=== PATIENT | female | born 1955 | race Caucasian/White ===

== ENCOUNTER 2018-03-09 14:59 | Outpatient (CLI) | payer BC ==
--- NOTE | 2018-03-09 15:56 | BD ---
BONE DENSITOMETRY USING DEXA: Date: 03/09/18 HISTORY: Postmenopausal screening for osteoporosis. FINDINGS: Lumbar Spine: BMD (g/cm2) L1 1.073 T-Score: 0.8 Z-Score: 2.2 L2 1.153 T-Score: 1.1 Z-Score: 2.7 L3 1.118 T-Score: 0.3 Z-Score: 2.0 L4 1.065 T-Score: 0.0 Z-Score: 1.8 L1-L4 1.102 T-Score: 0.5 Z-Score: 2.1 Femoral Neck: 0.533 T-Score: -2.8 Z-Score: -1.4 Total Femur: 0.718 T-Score: -1.8 Z-Score: -0.7 IMPRESSION: Osteoporosis. POS: JAYLAN
== END 2018-03-09 15:00 | disposition home or self-care (01) ==
LOC: BICMAMMO 14:59
PROVIDERS: ATTEND Internal Medicine Rheumatology
DX: M81.0 Age-related osteoporosis without current pathological fracture (principal)
CPT/HCPCS: 77080

== ENCOUNTER 2018-03-21 13:52 | Outpatient (CLI) | payer BC ==
--- NOTE | 2018-03-21 14:16 | RAD ---
TWO VIEWS LEFT KNEE: Comparison: None. History: Osteoarthritis of the knee. FINDINGS: Two views of the left knee shows no evidence of acute fracture or dislocation. No degenerative change s are seen. No knee effusion is seen. IMPRESSION: Unremarkable exam. POS: SHE
--- NOTE | 2018-03-21 14:20 | RAD ---
TWO VIEWS RIGHT KNEE: Comparison: None. History: Osteoarthritis of the knee. FINDINGS: Two views of the right knee shows no evidence of acute fracture or dislocation. No degenerative peralta es are seen. No knee effusion is present. IMPRESSION: No evidence of acute osseous abnormality. POS: JAYLAN
== END 2018-03-21 13:53 | disposition home or self-care (01) ==
LOC: BICRAD 13:52
PROVIDERS: ATTEND Internal Medicine Rheumatology
DX: M17.0 Bilateral primary osteoarthritis of knee (principal)

== ENCOUNTER 2018-08-03 10:14 | Inpatient (IN) | payer BC ==
[2018-08-03 11:07] LABS: #Basophils 0.1 thou/uL (0.0-0.2); #Lymphocytes 1.1 thou/uL (1.20-3.40); #Monocytes 0.7 thou/uL (0.11-0.59); #Neutrophils 2.9 thou/uL (1.40-6.50); %Basophils 1.5 % (0.0-1.0); %Eosinophils 0.4 % (0.0-10.0); %Lymphocytes 22.6 % (21.0-51.0); %Monocytes 14.9 % (0.0-10.0); %Neutrophils 60.6 % (42.0-75.0); Hemoglobin 11.2 g/dL (12.0-16.0); Mean Corpuscular HGB CONC 31.9 g/dL (32.0-36.0); Mean Corpuscular Hemoglobin 24.4 pg (27.0-31.0); Mean Corpuscular Volume 76.4 fL (78.0-98.0); Mean Platelet Volume 10.8 fL (7.4-10.4); Platelet Count 237 thou/uL (130-400); RBC Distribution Width 18.5 % (11.5-14.5); Red Blood Cell (RBC) Count 4.61 mill/uL (4.20-5.40); White Blood Cell (WBC) Count 4.7 thou/uL (4.8-10.8)
[2018-08-03] MEDS ORDERED: ISOVUE-370 76%-LOCM 1 ML ONE (11:17)
[2018-08-03 11:28] LABS: ALT (SGPT) 298 U/L (8-55); AST (SGOT) 244 U/L (5-34); Albumin 4.4 g/dL (3.4-4.8); Alkaline Phosphatase 670 U/L (40-150); Anion Gap 15 mmol/L (10-20); BUN (Urea Nitrogen) 9 mg/dL (9.8-20.1); Bilirubin, Total 5.4 mg/dL (0.2-1.2); Calc. Creatinine Clearance 0 mL/min (70-130); Calcium 10.1 mg/dL (7.8-10.44); Carbon Dioxide 25 mmol/L (23-31); Chloride 96 mmol/L (98-107); Estimated GFR-MDRD 70; Globulin 3.3 g/dL (2.4-3.5); Glucose 122 mg/dL (80-115); Lipase 82 U/L (8-78); Potassium 3.8 mmol/L (3.5-5.1); Protein, Total 7.7 g/dL (6.0-8.3); Sodium 132 mmol/L (136-145)
[2018-08-03 13:27] LABS: Bilirubin Moderate (Negative); Blood, Urine Small (Negative); Clarity CLEAR (Clear); Glucose, Urine (Dipstick) Negative (Negative); Leukocyte Negative (Negative); Nitrite Negative (Negative); Protein, Urine (Dipstick) Negative (Neg-Trace); Specific Gravity, Urine 1.008 (1.002-1.036); pH, Urine 5.5 (5.0-9.0)
[2018-08-03 13:31] LABS: Bacteria/HPF None Seen HPF (None Seen); Hyaline Casts/LPF 0-3 HYALINE CAST LPF (0-3 Hyaline); RBC/HPF 0-3 HPF (0-3); Squamous Epithelial None Seen HPF (0-3); WBC/HPF None Seen HPF (0-3)
[2018-08-03] MEDS ORDERED: Morphine 4 MG/ML VIAL ONE ×2 (14:48→16:56)
[2018-08-03] MEDS ORDERED: Ondansetron PF 4 MG/2 ML Vial ONE ×2 (14:48→16:56)
--- NOTE | 2018-08-03 14:52 | CT ---
CT Abdomen Pelvis W Con: 08/03/2018 1:56 PM CLINICAL INFORMATION: Abdominal pain. Recently diagnosed with a possible mass in the pancreas, the ul trasound. COMPARISON: 05/07/2011 Procedure: Multiple contiguous axial images were obtained and a CT of the abdomen and pelvis with IV contrast. C oronal reformats were performed. FINDINGS: Lower Chest: within normal limits. Vessels: Visualized aorta has a normal caliber. No periaortic fat stranding. Abdomen: Portal vein:Patent Gallbladder: Surgically absent. Markedly dilated intra and extra hepatic biliary system which main part be due to reservoir effect an d in part due to a mass noted in the head of the pancreas. Liver: No evidence of hepatic masses. Pancreas: There is dilatation of the main pancreatic duct with focal outpouching of the duct. The bod y and tail of the pancreas have appropriate enhancement. There is abnormal enhancement with an irregular-appearing head and uncinate process of the pancreas. There is a presumed neoplastic process measuring 4.2 x 3.1 cm. Spleen: within normal limits. Adrenals: within normal limits. Kidneys: within normal limits. Peritoneum: No ascites or free air, no fluid collection. Bowel: Normal caliber. Mesentery and Retroperitoneum: There are a few scattered nonspecific lymph nodes in the left abdomina l mesentery. Abdominal Wall: within normal limits. Pelvis: Reproductive Organs: Surgically absent uterus. Pelvis within normal limits. Bladder: within normal limits. Bones: within normal limits. IMPRESSION: 1. 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 2. Dilatation of the intra and extra hepatically system in part due to previous post cholecystectomy and in part due to pancreatic mass. 3. Dilatation of the main pancreatic duct is a forementioned pancreatic mass.
[2018-08-03] MEDS ORDERED: Morphine 2 MG/ML SYRINGE SLOW IVP PRN (16:24)
[2018-08-03] MEDS ORDERED: Morphine 4 MG/ML VIAL SLOW IVP PRN (16:24)
[2018-08-03] MEDS ORDERED: Ondansetron PF 4 MG/2 ML Vial IVP PRN (16:26)
[2018-08-03] MEDS ORDERED: Senokot S 8.6-50 MG TAB PO PRN (16:47)
[2018-08-03] MEDS: Famotidine/PF 20 mg/2ml Vial SLOW IVP SCH (20:06)
[2018-08-03] MEDS: diphenhydrAMINE 50 MG/ML VIAL IVP PRN ×2 (20:06→23:13)
[2018-08-03] MEDS: Sodium Chloride 0.9% 1,000 ML IV SCH (20:08)
[2018-08-03] MEDS: Fentanyl 100 MCG/2 ML VIAL SLOW IVP PRN (23:12)
--- NOTE | 2018-08-04 00:42 | HP ---
PRIMARY CARE PHYSICIAN: Rebekah Connelly MD CHIEF COMPLAINT: Abdominal pain. HISTORY OF PRESENT ILLNESS: Ms. Nunes is a 63-year-old female who was sent to the emergency room by Dr. Hoover at [facility] with complaints of abdominal pain x2 weeks which has worsened this week. Also reports vomiting for the last 4 or 5 days and then a few days of diarrhea which is now also resolved. The patient now reports some hard stool and the feeling of buildup of gas. Ultrasound yesterday at Dr. Hoover's office showed pancreatic mass. Family reports that the patient appears jaundiced for the last 3 to 4 days. Approximately 10 pounds of weight loss over the last month. Denies chest pain or shortness of breath. The patient does report a colonoscopy in 2011 which was normal. The patient reports pain at the time when she got to the ER was an 8 out of 10. On exam, reports the pain is much improved. Does report that she does have some constipation and does have some current nausea. Abdomen and pelvis CT was performed while the patient was in the emergency room and shows, 1. A neoplastic process involving the head and uncinate process of the pancreas. 2. Dilatation of the intra and extra hepatic system and part due to previous post cholecystectomy and part due to pancreatic mass. 3. Dilatation of the main pancreatic duct, aforementioned pancreatic mass. Lipase is 82, amylase is 18, alkaline phosphatase is 670, ALT is 298, AST is 244, total bilirubin is 5.4. The patient is admitted to medical for further evaluation. PAST MEDICAL HISTORY: Cardiac arrhythmia, hypertension, recent mass on pancreas which was found this week on ultrasound. PAST SURGICAL HISTORY: Cholecystectomy, hysterectomy, appendectomy, and cervical spine surgery. PSYCH HISTORY: Anxiety and depression. SOCIAL HISTORY: Denies any alcohol or drug use. Has no smoking history. Lives in the home with her family. ALLERGIES: 1. CIPRO. 2. DULOXETINE. 3. TERIPARATIDE. 4. REPORTS THAT SHE ALSO GETS ITCHY AFTER DOSE OF MORPHINE. CURRENT MEDICATIONS: 1. Carvedilol 40 mg once a day. 2. BuSpar 5 mg b.i.d. 3. Lunesta 1.5 to 3 mg p.m. as needed. REVIEW OF SYSTEMS: The patient reports recent weight loss. Reports abdominal pain. Reports nausea, vomiting, and diarrhea which have resolved and then constipation. Denies fever or chills. All other systems reviewed and are negative unless mentioned in the HPI. PHYSICAL EXAMINATION: VITAL SIGNS: Blood pressure is 150/80, pulse is 96, respirations 18, temperature is 98.3, pO2 sats are 95% on room air. CONSTITUTIONAL: The patient is alert and oriented to person, place, and time. The patient is in no distress, appears nontoxic. HEENT: Head is atraumatic and normocephalic. Eyes; eyelids are normal to inspection. Pupils are equal, round, and reactive to light. ENT; mouth exam is normal. Mucous membranes are moist. NECK: Normal range of motion. Trachea is midline. RESPIRATORY/CHEST: Breath sounds are clear. Chest movement is symmetrical. CARDIOVASCULAR: Heart rate, regular rate and rhythm. Heart sounds are normal. ABDOMEN: Tender epigastric right upper quadrant. Bowel sounds are heard. BACK: Normal range of motion. Normal inspection. No CVA tenderness. EXTREMITIES: Upper extremities; normal inspection, normal range of motion. Radial pulses are equal bilaterally. Lower extremities; normal inspection, normal range of motion. Pedal pulses are equal bilaterally. NEUROLOGIC: The patient is oriented to person, place, and time. Speech is normal. No focal motor or sensory deficits. SKIN: Warm, dry, jaundiced in appearance. PSYCH: The patient has normal affect. PERTINENT LABORATORY DATA: Sodium is 132, potassium 3.8, chloride is 96, carbon dioxide 25, gap is 15, BUN is 9, creatinine is 0.82, estimated GFR 70, glucose 122, calcium 10.1, total bilirubin is 5.4, AST 244, ALT is 298, alkaline phosphatase is 670, total protein 7.7, albumin 4.4, globulin 3.3, amylase 18, lipase 82. Urine with small amount of ketones, small amount of blood, moderate amount of bilirubin. White blood cell count is 4.7, hemoglobin is 11.2, hematocrit is 35.2, and platelet count is 237. ASSESSMENT AND PLAN: 1. Abdominal pain. Pancreatic mass seen on ultrasound which is confirmed on CT scan. We will admit to the hospital. Fluids normal saline at 75 mL per hour. Pain medication. Zofran is needed for nausea. We will consult GI. The patient was told that she may undergo an ERCP tomorrow. 2. Hypertension. We will restart home medications. 3. Gastrointestinal and deep venous thrombosis prophylaxis will be started. 4. Hospital course will depend on clinical findings. Job ID: [id number]
--- NOTE | 2018-08-04 02:00 | CON ---
DATE OF CONSULTATION: 08/03/2018 CHIEF COMPLAINT: Abdominal pain. HISTORY OF PRESENT ILLNESS: Ms. Nunes is a 63-year-old woman who has had burning to aching epigastric abdominal pain for the last 3 weeks that radiates around to her back. She did have nausea and vomiting few days ago, but none in the last couple of days. She has had no diarrhea, but has had some chronic constipation with a bowel movement every 3 or 4 days. She has been taking MiraLAX and Colace for that. She has lost 10 pounds over the last couple months. No chest pain or shortness of breath. No blood in the stool. She presented to the GI clinic yesterday with these symptoms and an ultrasound was ordered and blood work. She was found to have a mass of the pancreas with bile duct dilation by ultrasound. She had worsening pain this morning and came into the emergency room. She was found to have obstructive jaundice with a bilirubin of 5.4 and alkaline phosphatase of 670. PAST MEDICAL HISTORY: Hepatitis C treated previously, hemorrhoids, depression, arthritis, hypertension, irritable bowel syndrome. She has had itching and pruritus over the last couple of weeks, which is gradually worsening. She has had fatigue and loss of appetite as well. PAST SURGICAL HISTORY: 1. Hysterectomy. 2. She has had prior colonoscopy. 3. Cholecystectomy. ALLERGIES: CIPROFLOXACIN, LEVOFLOXACIN. MEDICATIONS: As an outpatient prior to admission: 1. Bupropion. 2. Carvedilol. 3. Esomeprazole. 4. Lunesta. 5. Timolol. 6. Zolpidem. 7. Tums. FAMILY HISTORY: Her mother had ovarian cancer. Sister had lung cancer. Father had lung cancer. SOCIAL HISTORY: She is a former smoker. No drugs. No alcohol. She works as a nurse at the [employer]. REVIEW OF SYSTEMS: Negative x10 systems reviewed except as stated in history of present illness. PHYSICAL EXAMINATION: VITAL SIGNS: Temperature 98.8, pulse 98, blood pressure 122/60. GENERAL: She is in no acute distress. She is alert and oriented x3. HEENT: Eyes have mild scleral icterus. Oropharynx is clear without lesions. No cervical or supraclavicular lymphadenopathy. LUNGS: Clear to auscultation bilaterally. HEART: Regular rate and rhythm without murmur. ABDOMEN: Soft. She has tenderness in the epigastric region without guarding. Bowel sounds are present. She has no hepatomegaly. EXTREMITIES: No lower extremity edema. NEUROLOGIC: Cranial nerves are grossly intact. LABORATORY DATA: Creatinine 0.82, bilirubin 5.4, AST 244, ALT 298, alkaline phosphatase 670, lipase 82, amylase 18, INR was 1.1 in the clinic yesterday. White blood cell count 4.7, hemoglobin 11.2, MCV 76, platelets 237. IMPRESSION: 1. Obstructive jaundice. 2. Abnormal CT scan showing a pancreatic mass with dilation of the bile duct proximally. She is status post cholecystectomy. 3. Pruritus secondary to cholestasis. RECOMMENDATIONS: ERCP tomorrow. The risks and benefits of this procedure were discussed in detail with the patient and her daughter. This includes pancreatitis, bleeding, perforation and failure to cannulate. Job ID: [id number]
[2018-08-04 02:50] VITALS: BMI 20.3
[2018-08-04] MEDS: Fentanyl 100 MCG/2 ML VIAL SLOW IVP PRN ×4 (07:02→21:33)
[2018-08-04] MEDS: diphenhydrAMINE 50 MG/ML VIAL IVP PRN (07:06)
[2018-08-04] MEDS ORDERED: Enoxaparin Sodium 40 MG/0.4 ML SYRINGE SC SCH (09:00)
[2018-08-04] MEDS: Sodium Chloride 0.9% 1,000 ML IV SCH ×2 (09:03→22:56)
[2018-08-04 09:04] LABS: ALT (SGPT) 250 U/L (8-55); AST (SGOT) 214 U/L (5-34); Albumin 3.8 g/dL (3.4-4.8); Alkaline Phosphatase 586 U/L (40-150); Anion Gap 14 mmol/L (10-20); BUN (Urea Nitrogen) 10 mg/dL (9.8-20.1); Bilirubin, Total 5.4 mg/dL (0.2-1.2); Calc. Creatinine Clearance 70 mL/min (70-130); Carbon Dioxide 23 mmol/L (23-31); Chloride 103 mmol/L (98-107); Estimated GFR-MDRD 77; Globulin 2.9 g/dL (2.4-3.5); Glucose 93 mg/dL (80-115); Potassium 3.6 mmol/L (3.5-5.1); Protein, Total 6.7 g/dL (6.0-8.3); Sodium 136 mmol/L (136-145)
[2018-08-04] MEDS: Famotidine/PF 20 mg/2ml Vial SLOW IVP SCH (09:05)
[2018-08-04 09:07] LABS: Hemoglobin 10.3 g/dL (12.0-16.0); Mean Corpuscular HGB CONC 31.2 g/dL (32.0-36.0); Mean Corpuscular Hemoglobin 24.1 pg (27.0-31.0); Mean Corpuscular Volume 77.2 fL (78.0-98.0); Mean Platelet Volume 11.3 fL (7.4-10.4); Platelet Count 203 thou/uL (130-400); RBC Distribution Width 18.5 % (11.5-14.5); Red Blood Cell (RBC) Count 4.28 mill/uL (4.20-5.40); White Blood Cell (WBC) Count 4.2 thou/uL (4.8-10.8)
[2018-08-04 09:32] LABS: Band 7 % (5-11); Hypochromia SLIGHT = 6-15 cells (100X) (0-5/hpf); Lymphocytes 34 % (21-51); MDiff Complete? YES; Microcytosis SLIGHT = 6-15 cells (100X) (0-5/hpf); Monocytes 8 % (0-10); Neutrophil 49 % (42-75); Platelet Morphology Comment Appears Adequate; Polychromasia SLIGHT = 2-3 cells (100X) (0-2/hpf); Reactive Lymphocytes 2 % (0-10)
[2018-08-04] MEDS ORDERED: cefTRIAXone\\ROCEPHIN 1 GM VIAL ONE (10:48)
[2018-08-04] MEDS ORDERED: Sodium Chloride 0.9% 100 ML ONE (10:48)
[2018-08-04] MEDS ORDERED: Iothalamate Meglumine 60% 50 ML VIAL FS ONE (11:11)
[2018-08-04] MEDS ORDERED: Indomethacin 50 MG SUPP ONE (11:11)
[2018-08-04] MEDS ORDERED: Ondansetron HCl/PF 4 MG/2 ML Vial IVP PRN (14:07)
[2018-08-04] MEDS ORDERED: Fentanyl 100 MCG/2 ML VIAL ONE ×2 (14:15→14:49)
[2018-08-04] MEDS ORDERED: Ondansetron ODT 4 MG TAB PO PRN (15:32)
--- NOTE | 2018-08-04 15:56 | PDOC.PN ---
- Subjective Encounter Start Date: 08/04/18 Encounter Start Time: 15:53 Patient seen for Pancreatic mass. s/p ERCP. No new complaints. No overnight events - Objective Resuscitation Status - Order Detail: 08/03/18 16:47 Resuscitation Status Routine Co-Sign Provider: Resuscitation Status: FULL: Full Resuscitation Discussed with: Patient Additional comments: and daughters are surrogate decision makers MAR Reviewed: Yes Vital Signs & Weight: Vital Signs (12 hours) Temp Pulse Resp BP Pulse Ox 08/04/18 08:15 98.2 F 88 16 141/67 H 93 L 08/04/18 08:00 98 08/04/18 04:00 98.6 F 109 H 18 122/59 L 97 Weight Weight 129 lb 13.636 oz Result Diagrams: 08/04/18 08:18 08/04/18 08:18 Radiology Reviewed by me: Yes (Abd CT - Pancreatic mass) Phys Exam - Physical Examination Constitutional: NAD Neurological: moves all 4 limbs Psychiatric: A&O x 3 Dx/Plan - Plan DVT proph w/SCDs IMPRESSION: Obstructive jaundice Pruritus due to #1 Pancreatic mass Hyponatremia due to N/V Chronic Anemia Depression - mild - stable PLAN: s/p ERCP Await biopsy LFTs and Lipase in AM Resume Wellbutrin Cont Zofran Cont IVF Review of Systems - Review of Systems Respiratory: negative: Cough, Dry, Shortness of Breath, Hemoptysis, SOB with Excertion, Pleuritic Pain, Sputum, Wheezing Cardiovascular: negative: chest pain, palpitations, orthopnea, paroxysmal nocturnal dyspnea, edema, light headedness, other - Medications/Allergies Allergies/Adverse Reactions: Allergies Allergy/AdvReac Type Severity Reaction Status Date / Time ciprofloxacin [From Cipro] Allergy Verified 08/04/18 08:02 duloxetine [From Cymbalta] Allergy Verified 08/04/18 08:02 teriparatide [From Forteo] Allergy Verified 08/04/18 08:02 Medications: Current Medications Bupropion HCl (Wellbutrin) 150 mg PO BID DAVID Fentanyl (Sublimaze) 25 mcg SLOW IVP Q4H PRN PRN Reason: Moderate Pain (4-6) Last Admin: 08/04/18 07:02 Dose: 25 mcg Fentanyl (Sublimaze) 50 mcg SLOW IVP Q4H PRN PRN Reason: Moderate to Severe Pain (6-10) Last Admin: 08/04/18 09:46 Dose: 50 mcg Fentanyl (Pacu-Sublimaze) 50 mcg SLOW IVP Q10MIN PRN PRN Reason: Moderate to Severe Pain (6-10) Stop: 08/04/18 17:07 Hydroxyzine HCl (Atarax) 10 mg PO Q4H PRN PRN Reason: Itching Sodium Chloride (Normal Saline 0.9%) 1,000 mls @ 75 mls/hr IV .[id number] DAVID Last Admin: 08/04/18 09:03 Dose: 1,000 mls Ondansetron HCl (Zofran) 4 mg IVP Q6H PRN PRN Reason: Nausea/Vomiting Last Admin: 08/04/18 15:46 Dose: 4 mg Ondansetron HCl (Pacu-Zofran) 4 mg IVP ONE PRN PRN Reason: Nausea/Vomiting Stop: 08/04/18 17:07 Ondansetron HCl (Zofran Odt) 4 mg PO Q6H PRN PRN Reason: Nausea/Vomiting Senna/Docusate Sodium (Senokot S) 2 tab PO BID PRN PRN Reason: Constipation Sodium Chloride (Flush - Normal Saline) 10 ml IVF Q12HR PRN PRN Reason: Saline Flush
[2018-08-04] MEDS ORDERED: Dexamethasone 20 MG/5 ML VIAL ONE (16:34)
[2018-08-04] MEDS ORDERED: Ondansetron PF 4 MG/2 ML Vial ONE (16:34)
[2018-08-04] MEDS ORDERED: Rocuronium Bromide 10 MG/ML (10ML VIAL) ONE (16:34)
[2018-08-04] MEDS ORDERED: PROPOFOL 200 MG/20 ML VIAL ONE (16:34)
[2018-08-04] MEDS ORDERED: Lidocaine 1% PF 5 ML VIAL ONE (16:34)
[2018-08-04] MEDS: hydrOXYzine 10 MG TAB PO PRN ×2 (18:14→22:18)
--- NOTE | 2018-08-04 20:57 | OP ---
DATE OF PROCEDURE: 08/04/2018 PROCEDURES PERFORMED: Endoscopic retrograde cholangiopancreatography with sphincterotomy and cytology brushings of the bile duct and plastic biliary stent placement and biopsy. PREOPERATIVE DIAGNOSIS: Pancreatic mass and obstructive jaundice and pruritus. DESCRIPTION OF PROCEDURE: Informed consent was obtained from the patient. She was sedated with general anesthesia. She was placed in the prone position and a bite block was placed. The duodenoscope was advanced easily to the second portion of the duodenum. The ampulla was abnormal with periampullary mass. The ampulla opening was somewhat obscured and was very friable. The opening was cannulated with a sphincterotome and guidewire, and the guidewire was initially advanced into the proximal pancreatic duct. The sphincterotome was repositioned, and the wire was advanced selectively into the common bile duct. The sphincterotome was then advanced and cholangiogram was performed, which revealed dilation of the common bile duct to least 1.3 cm. The extrahepatic ducts were markedly dilated as well. The intrahepatic ducts were mildly dilated. A moderately large sphincterotomy was performed. There was a 3-cm stricture in the distal common bile duct. The stricture was brushed with a cytology brush and this was sent to Pathology for review. An 11.5-[place]yr[place] 7-cm stent was then placed through the stricture with rapid drainage of clear bile. A 5-cm stent would also be adequate. Biopsies were obtained from the ampullary mass with the biopsy forceps. The air and fluid were suctioned from the stomach, and the procedure was completed. IMPRESSION: 1. Periampullary mass, which was friable and biopsied. 2. Cholangiogram showing dilation of the common bile duct and intra and extrahepatic ducts. There was a 3-cm stricture in the distal common bile duct. 3. Moderate sphincterotomy. 4. Cytology brushings obtained from the stricture. 5. An 11.5-[place] 7-cm plastic stent was placed with good drainage with clear bile. RECOMMENDATIONS: 1. Await histopathology. 2. Check liver tests in the morning. 3. Advance diet. 4. Anticipate discharge home tomorrow morning with followup in the office next week. Job ID: [id number]
[2018-08-04] MEDS: buPROPion 75 MG TAB PO SCH (21:33)
--- NOTE | 2018-08-04 22:21 | RAD ---
ERCP 08/04/18 HISTORY: Abdominal pain. FINDINGS/IMPRESSION: Five fluoroscopic intraoperative images of the right upper quadrant during ERCP demonstrate opacifica tion of the common bile duct, hepatic ducts and their branches which appear dilated. There is dilatat ion of the intra and extrahepatic ducts. No filling defects are seen. No contrast is noted in the se cond portion of the duodenum. There are postop changes of cholecystectomy. POS: SHE
[2018-08-05 04:42] LABS: ALT (SGPT) 226 U/L (8-55); AST (SGOT) 178 U/L (5-34); Albumin 3.7 g/dL (3.4-4.8); Alkaline Phosphatase 537 U/L (40-150); Bilirubin, Direct 1.4 mg/dL (0.1-0.3); Bilirubin, Total 2.2 mg/dL (0.2-1.2); Lipase 60 U/L (8-78); Protein, Total 6.4 g/dL (6.0-8.3)
[2018-08-05] MEDS: Fentanyl 100 MCG/2 ML VIAL SLOW IVP PRN (07:35)
[2018-08-05] MEDS: buPROPion 75 MG TAB PO SCH (07:36)
[2018-08-05] MEDS: hydrOXYzine 10 MG TAB PO PRN ×2 (07:55→12:31)
[2018-08-05 08:05] VITALS: BP 127/67; TEMP 98.2
[2018-08-05] MEDS ORDERED: traMADol HCl 50 MG TAB PO PRN (10:13)
[2018-08-05] MEDS ORDERED: Acetaminophen/Codeine 30-300mg Tablet PO PRN (10:13)
[2018-08-05] MEDS ORDERED: Calcium Carbonate 500 MG ChewTAB PO PRN (10:13)
--- NOTE | 2018-08-05 11:23 | PRG ---
DATE OF SERVICE: 08/05/2018 SUBJECTIVE: Ms. Nunes still has significant epigastric pain after eating. Also worse when she gets up and moves around. She has been taking fentanyl IV for this to control the pain. OBJECTIVE: VITAL SIGNS: Temperature 98.2, pulse 100, and blood pressure 127/67. GENERAL: She is jaundiced, in no acute distress. Alert and oriented x3. LUNGS: Clear to auscultation bilaterally. HEART: Regular rate and rhythm without murmur. ABDOMEN: Soft and tender in the epigastric region without guarding. Bowel sounds are present. EXTREMITIES: No lower extremity edema. LABORATORY DATA: Her bilirubin is decreased from 5.4 to 2.2 today. AST 178, ALT 226, alkaline phosphatase 537, lipase 60, and albumin 3.7. IMPRESSION: 1. Pancreatic mass with distal common bile duct stricture concerning for pancreatic malignancy. She is status post biliary plastic stent placement yesterday with good drainage of bile. Biopsies and brushings were obtained and are pending. 2. Pruritus, slightly improved today. This should continue to improve with biliary drainage. 3. Epigastric abdominal pain. RECOMMENDATIONS: 1. Await histopathology. 2. We have consulted Oncology, Dr. Fernandez. 3. She should be able to discharge home once her pain is adequately controlled with oral pain medications. Job ID: [id number]
[2018-08-05] MEDS ORDERED: ISOVUE-370 76%-LOCM 1 ML ONE (11:38)
[2018-08-05] MEDS ORDERED: HYDROcodone/Acetaminophen 10/325 mg Tablet PO SCH (14:45)
--- NOTE | 2018-08-05 15:56 | DIS ---
DATE OF ADMISSION: 08/03/2018 DATE OF DISCHARGE: 08/05/2018 DISCHARGE DISPOSITION: Home. FOLLOWUP: Follow up with primary care physician, nurse practitioner in a week. ALLERGIES: THE PATIENT IS ALLERGIC TO: 1. CIPROFLOXACIN. 2. CYMBALTA. 3. TERIPARATIDE. THE PATIENT WILL BE DISCHARGED HOME AFTER A CT SCAN OF THE CHEST PER ONCOLOGY RECOMMENDATION. DISCHARGE MEDICATIONS: 1. Atarax as needed. 2. Protonix 40 mg daily. 3. [place] as needed. 4. Lunesta 3 mg as needed. 5. Bupropion 150 mg b.i.d. INPATIENT CONSULTANTS: 1. Gastroenterology, Dr. George. 2. Oncology, Dr. Fernandez. The patient was seen on the day of discharge. Denies any new complaints. Symptomatically feels better. Pain controlled on current pain medications. BRIEF HOSPITAL COURSE: The patient is a 63-year-old female, who was sent to the emergency room from [facility] due to abdominal discomfort along with nausea and vomiting. She was also found to have abnormal LFTs as well as a recent ultrasound showing pancreatic mass at Dr. Hoover's office. She has lost approximately 10 pounds of weight over the last month. Please refer to the history and physical for further details. The patient was admitted to the hospital with a diagnosis of obstructive jaundice with pancreatic mass. Total bilirubin on admission was 5.4 with AST 244, ALT 298, alkaline phosphatase 670. She was seen by Gastroenterology, Dr. George. She underwent ERCP with sphincterotomy and biliary stent was placed. Cytology studies are pending at this time. The patient was also evaluated by Oncology Service, Dr. Fernandez today. The CT scan of the chest will be obtained prior to discharge. FINAL DIAGNOSES: 1. Obstructive jaundice secondary to pancreatic mass, status post biliary stent placement. 2. Abdominal discomfort with nausea and vomiting secondary to #1. 3. Elevated LFTs secondary to #1. 4. History of hypertension, diet controlled. 5. Depression, mild, stable. 6. Pruritus secondary to #1. 7. Insomnia, on p.r.n. Lunesta. 8. Gastroesophageal reflux disease. The patient has been started on PPI. 9. Acute pain secondary to #1. The patient will be discharged home with hydrocodone. 10. The patient will follow up with Oncology and Gastroenterology as outpatient. TEST PENDING AT DISCHARGE: 1. Cytology from bile duct brushing as well as pancreatic biopsy. 2. CT scan of the chest will be obtained prior to discharge. Primary care physician advised to follow. Job ID: [id number]
--- NOTE | 2018-08-05 18:03 | CT ---
CT CHEST WITH IV CONTRAST 08/05/18 HISTORY: Pancreatic malignancy. Exam requested to evaluate for metastatic disease. FINDINGS: No mediastinal, hilar or axillary mass or lymphadenopathy seen. The thoracic aorta is well opacified without aneurysmal dissection. The central pulmonary arteries are well opacified without evidence of filling defects to suggest central pulmonary embolism. No pleural or pericardial effusion is seen. No pneumothoraces, pulmonary nodules/masses or focal areas of consolidation identified. No osteolytic o r osteoblastic lesions are identified. Upper abdominal tomograms demonstrate the pancreatic mass seen on the CT abdomen of 08/03/18. Interval placement of a biliary stent has occurred. Intrabiliary air is seen. IMPRESSION: No evidence of lung metastases. POS: JAYLAN
--- NOTE | 2018-08-05 21:00 | CON ---
DATE OF CONSULTATION: 08/05/2018 HISTORY OF PRESENT ILLNESS: Ms. Nunes is a 63-year-old female with 3 month history of bloating and abdominal discomfort, not truly pain, but she has just felt very uncomfortable. She has lost about 10 pounds over that period of time and has had some intermittent constipation as well as lightening of her stools. Two days prior to admission, she noticed that she was quite yellow and ended up presenting to the emergency room with an elevated bilirubin. Again, she insists that she does not have significant pain, but just feels bloated and distended. CT of the abdomen in the emergency room showed neoplastic process at the head and uncinate process of the pancreas measuring approximately 4.2 cm. ERCP was done today prior to this consult and showed a mass at the head of ampulla with biopsy results pending, but presumed pancreatic adenocarcinoma. The patient is recovering from the procedure. Her bilirubin is declining and she is having less distention. She is still constipated and has not had a bowel movement. Her pain is well controlled currently with Tylenol No. 3, although she did just come off intravenous fentanyl. PAST MEDICAL HISTORY: 1. Hypertension. 2. Cardiac arrhythmia, I have no further details on this. 3. Anxiety. CURRENT MEDICATIONS: 1. Tylenol No. 3 one tablet p.o. q.6 hours p.r.n. 2. Wellbutrin 150 mg p.o. b.i.d. 3. Tums p.r.n. 4. Fentanyl 25 mcg IV push q.4 hours p.r.n. 5. Atarax 10 mg p.o. q.4 hours p.r.n. 6. Zofran 4 mg IV q.6 hours p.r.n. 7. Protonix 40 mg p.o. daily. 8. Senokot-S two tablets p.o. b.i.d. p.r.n. 9. Tramadol 50 mg p.o. q.6 hours p.r.n. ALLERGIES: 1. CIPRO. 2. DULOXETINE. 3. TERIPARATIDE. SOCIAL HISTORY: She lives in [place]. She is here with her daughter, who is a nurse practitioner for Dr. Hsu in [place]. 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 FAMILY HISTORY: Negative for GI malignancies. REVIEW OF SYSTEMS: Otherwise, 10-point review of systems is negative. Please see the history of present illness. PHYSICAL EXAMINATION: VITAL SIGNS: Temperature 98.2, pulse 100, respirations 18, O2 saturations 98% on room air, blood pressure 127/67. GENERAL: She is quite pleasant, in no acute distress. HEENT: Slight scleral icterus, but obviously improving. Extraocular muscles are intact. Pupils are reactive to light. There are no oral lesions. NECK: Supple without lymphadenopathy. CARDIOVASCULAR: Regular rhythm. LUNGS: Clear to auscultation bilaterally. ABDOMEN: Hypoactive bowel sounds. Soft with tenderness in the midepigastric area. Her liver edge is not palpable. EXTREMITIES: No edema. No clubbing. LABORATORY DATA: White blood cell count 4.2, hemoglobin 10.3, platelets 203. Her bilirubin on admission was 5.4, it is down to 2.2 currently. Her electrolytes are now normal. AST 178, ALT 226, alkaline phosphatase 537, serum total protein 6.4, amylase 18, lipase 82. IMAGING DATA: CT of the abdomen and pelvis done on admission showed a 4.2 cm mass in the uncinate process and head of the pancreas. There was associated dilation of the intra and extrahepatic biliary system secondary to pancreatic mass. There are no lesions in the liver or spleen. ASSESSMENT: Ms. Nunes is a 63-year-old female with: 1. Acute onset of jaundice secondary to pancreatic head mass. 2. Abdominal pain and discomfort secondary to above. 3. Constipation secondary to above. PLAN: 1. We discussed that this is likely pancreatic adenocarcinoma, but the pathology report is still pending. I would recommend that she follow up with us in the clinic for these results. She does need a CT of the chest and/or PET scan for staging. 2. I would recommend she consult with a surgeon. We discussed surgeons in [place] and [place] and her family will think about this and where they would like to be referred. We will start working on this next week to get her referred to a surgeon for a [place]. I think it is likely she will need neoadjuvant or adjuvant chemotherapy as well. We discussed this at length today and she may in fact need a MediPort. This could be placed as an outpatient. 3. I would recommend she continue narcotics for pain control. She is currently on Tylenol No. 3. This may be enough, if not, she can escalate her hydrocodone dose. She took 5 mg of hydrocodone at home and states this did not work well, but I think that if we increase this to 10 or 20 mg q.6 hours, it would be reasonable and I discussed this with the patient and her daughter. 4. We will follow up with you as an outpatient. Job ID: [id number]
== END 2018-08-05 17:25 | disposition home or self-care (01) | DRG 435 ==
LOC: ERS 10:14 → ONC 16:00
PROVIDERS: ADMIT Internal Medicine; ATTEND Internal Medicine
PROC: 0FD98ZX Extraction of Common Bile Duct, Via Natural or Artificial Opening Endoscopic, Diagnostic (ICD-10-PCS; principal; 2018-08-04)
PROC: 0FBC8ZX Excision of Ampulla of Vater, Via Natural or Artificial Opening Endoscopic, Diagnostic (ICD-10-PCS; 2018-08-04)
PROC: 0F798DZ Dilation of Common Bile Duct with Intraluminal Device, Via Natural or Artificial Opening Endoscopic (ICD-10-PCS; 2018-08-04)
DX: C25.0 Malignant neoplasm of head of pancreas (principal); K83.1 Obstruction of bile duct; I10 Essential (primary) hypertension; K58.1 Irritable bowel syndrome with constipation; G47.00 Insomnia, unspecified; F41.8 Other specified anxiety disorders; Z90.49 Acquired absence of other specified parts of digestive tract; Z86.19 Personal history of other infectious and parasitic diseases; Z88.1 Allergy status to other antibiotic agents; Z88.8 Allergy status to other drugs, medicaments and biological substances
CPT/HCPCS: 36415; 71260; 74177; 74330; 80053; 80076; 81003; 81015; 82150; 83690; 83735; 85025; 88104; 88112; 88305; 96374; 96375; 96376; J0696; J1200; J2270; J2405; J3010; J3490; Q9961; Q9966; S0028

== ENCOUNTER 2018-08-10 10:13 | Outpatient (CLI) | payer BC ==
--- NOTE | 2018-08-10 14:50 | PET ---
EXAM: PET/CT HISTORY: Pancreatic cancer. Exam requested for initial staging TECHNIQUE: PET scanning with CT attenuation correction was performed from the base of the brain to the proximal thighs following the intravenous administration of 11.2 millicuries [id number]. COMPARISON: None. CORRELATION: CT abdomen pelvis dated 08/03/[address] chest dated 08/05/2018. FINDINGS: There is increased FDG localization in the pancreatic head mass with an SUV of 5.5. No siri hypermetabolism is seen in the neck, chest, abdomen or pelvis. No hypermetabolic pulmonary nodules, liver, adrenal or skeletal lesions are seen. There is physiologic activity in the GI and tracts and the visualized portions of the brain. The CT scan used for attenuation correction demonstrates no evidence of pleural effusions or ascites. IMPRESSION: Pancreatic malignancy without evidence of metastatic disease.
== END 2018-08-10 10:14 | disposition home or self-care (01) ==
LOC: PET 10:13
PROVIDERS: ATTEND Internal Medicine Hematology & Oncology
DX: C25.9 Malignant neoplasm of pancreas, unspecified (principal)
CPT/HCPCS: 78815; A9552

== ENCOUNTER 2018-08-11 07:11 | Day surgery (SDC) | payer BC ==
[2018-08-10 16:08] VITALS: BMI 22.8
--- NOTE | 2018-08-11 07:24 | HP ---
HISTORY OF PRESENT ILLNESS: A 63-year-old female, diagnosed with pancreatic cancer, referred by Dr. Fernandez for MediPort. I have discussed with the patient the risks and benefits. We will proceed with MediPort placement, IV sedation local. She had laboratories last week. MEDICATIONS: Hydrocodone, hydroxyzine, Zofran, Protonix, bupropion, , Tums. ALLERGIES: LEVAQUIN, CIPRO, FORTE. SOCIAL HISTORY: Tobacco, none. Alcohol, none. PAST SURGICAL HISTORY: Cholecystectomy, total abdominal hysterectomy, bilateral salpingo-oophorectomy, appendectomy, cervical spine surgery. PAST MEDICAL HISTORY: History of anxiety, depression. PHYSICAL EXAMINATION: VITAL SIGNS: Weight 124 pounds, height 5 foot 2 inches, blood pressure 144/67. HEAD, EARS, EYES, NOSE AND THROAT: Unremarkable. LUNGS: Clear to auscultation. CARDIAC: Regular rate and rhythm without murmur or gallop. ABDOMEN: Soft and nontender. Fullness in the upper abdomen. EXTREMITIES: Unremarkable. LABORATORY DATA: Pathology, biopsied, Dr. Ja George placed a biliary stent, adenocarcinoma, poorly differentiated ampullary mass. PLAN: Placement of MediPort. Risks and benefits explained. Questions answered. Job ID: [id number]
[2018-08-11] MEDS ORDERED: Lidocaine 2% PF 5 ML VIAL ONE (08:35)
[2018-08-11] MEDS ORDERED: Bupivacaine HCl 0.5%/Epinephrine 1:200,000/PF 30 ml Vial ONE (08:35)
[2018-08-11] MEDS ORDERED: Fentanyl 100 MCG/2 ML VIAL ONE (08:47)
[2018-08-11] MEDS ORDERED: Propofol 500 MG/50 ML VIAL ONE (08:47)
[2018-08-11] MEDS ORDERED: Midazolam HCl 2 mg/2 ml Vial ONE (08:47)
--- NOTE | 2018-08-11 10:06 | RAD ---
CHEST ONE VIEW: HISTORY: Status post Mediport catheter placement. FINDINGS: Atherosclerosis of the aorta. Normal cardiac silhouette. Pulmonary vessels and hilum are normal. C ostophrenic angles are clear. Hyperinflation without consolidation or mass. Cervical fusion hardwar e is noted. Right-sided Mediport catheter with the distal tip projecting over the expected region of the superior vena cava. No pneumothorax. IMPRESSION: Right-sided Mediport catheter. No pneumothorax. POS: [facility]
--- NOTE | 2018-08-11 12:03 | OP ---
DATE OF PROCEDURE: 08/11/2018 PREOPERATIVE DIAGNOSIS: Pancreatic cancer, in need of antineoplastic neoadjuvant chemotherapy access. POSTOPERATIVE DIAGNOSIS: Pancreatic cancer, in need of antineoplastic neoadjuvant chemotherapy access. PROCEDURE PERFORMED: Right subclavian vein MediPort. ANESTHESIA: TIVA, local 0.5% Marcaine with epinephrine 30 mL mixed to 2% Xylocaine 10 mL. DESCRIPTION OF PROCEDURE: The patient was taken to the operating room, where under intravenous sedation, neck and chest were prepared with ChloraPrep and draped in routine fashion. Local anesthetic was infiltrated in the skin and subcutaneous tissue about the operative site. Trocar catheter was introduced in the right subclavian vein. Using infraclavicular approach, right accessing subclavian vein, threading the J-wire, removing the trocar and enlarging the skin incision site sharply transversely and creating a subcutaneous pocket to accommodate the MediPort low-profile. Hemostasis was gained with the cautery. Dilator and Peel-Away sheath were placed over the J-wire into the subclavian vein. J-wire and dilator were removed. Catheter was placed through the Peel-Away sheath. Peel-Away sheath was removed. After placing the catheter in optimal position of superior vena cava, catheter tailored, appropriately connected to the MediPort with the connecting sleeve, which was placed in the subcutaneous pocket and secured with 2 interrupted sutures of 3-0 Prolene. Subcutaneous tissue was approximated with 3-0 Monocryl, skin with subdermal 4-0 Monocryl and [place] glue applied. Fluoroscopic images revealed good MediPort line placement. MediPort access with a Torres needle, aspirated blood and flushed with heparinized saline solution 10 mL. The patient tolerated the procedure well. Job ID: [id number]
[2018-08-11] MEDS ORDERED: PROPOFOL 200 MG/20 ML VIAL ONE (15:57)
== END 2018-08-11 10:57 | disposition home or self-care (01) ==
LOC: SDC 07:11
PROVIDERS: ATTEND Specialist
PROC: 0JH63WZ Insertion of Totally Implantable Vascular Access Device into Chest Subcutaneous Tissue and Fascia, Percutaneous Approach (ICD-10-PCS; principal; 2018-08-11)
DX: C25.9 Malignant neoplasm of pancreas, unspecified (principal); K58.9 Irritable bowel syndrome, unspecified; K21.9 Gastro-esophageal reflux disease without esophagitis; F32.9 Major depressive disorder, single episode, unspecified; F41.9 Anxiety disorder, unspecified; Z87.891 Personal history of nicotine dependence; Z79.899 Other long term (current) drug therapy; Z88.1 Allergy status to other antibiotic agents; Z88.8 Allergy status to other drugs, medicaments and biological substances
CPT/HCPCS: 71045; C1769; C1788; J0670; J0690; J1642; J2001; J2250; J2704; J3010

== ENCOUNTER 2018-08-30 14:36 | Outpatient (CLI) | payer BC ==
[~2018-08-30 14:36] MED LIST: Iopamidol 370 76% 100 ML VIAL ONE
--- NOTE | 2018-08-30 15:46 | CT ---
CT PULMONARY ANGIOGRAM WITH IV CONTRAST AND 3-D POSTPROCESSING: HISTORY: Pancreatic cancer, shortness of breath FINDINGS: There is good contrast opacification of the pulmonary arterial vasculature without filling defects to suggest pulmonary embolism. The thoracic aorta is well opacified without aneurysm or dissection. No pleural or pericardial effusions are seen. No pneumothoraces, focal areas of consolidation or lung nodules are noted. There are degenerative changes in the spine. Upper abdominal tomograms demonstrate air in the biliary tracts. IMPRESSION: No CT evidence of pulmonary embolism. Findings were discussed over the telephone with Dr. Fernandez at 3:19 PM.
== END 2018-08-30 14:37 | disposition home or self-care (01) ==
LOC: CT 14:36
PROVIDERS: ATTEND Internal Medicine Hematology & Oncology
DX: C25.9 Malignant neoplasm of pancreas, unspecified (principal); R06.02 Shortness of breath
CPT/HCPCS: 71275; Q9967

== ENCOUNTER 2018-09-10 23:07 | Emergency (ER) | payer BC ==
[2018-09-10] MEDS ORDERED: Fentanyl 100 MCG/2 ML VIAL ONE (23:47)
[2018-09-10] MEDS ORDERED: Ondansetron PF 4 MG/2 ML Vial ONE (23:47)
[2018-09-11 00:16] LABS: ALT (SGPT) 32 U/L (8-55); AST (SGOT) 29 U/L (5-34); Albumin 3.7 g/dL (3.4-4.8); Alkaline Phosphatase 355 U/L (40-150); Anion Gap 15 mmol/L (10-20); BUN (Urea Nitrogen) 16 mg/dL (9.8-20.1); Bilirubin, Total 0.9 mg/dL (0.2-1.2); Calc. Creatinine Clearance 0 mL/min (70-130); Calcium 8.4 mg/dL (7.8-10.44); Carbon Dioxide 23 mmol/L (23-31); Chloride 99 mmol/L (98-107); Estimated GFR-MDRD 83; Globulin 2.4 g/dL (2.4-3.5); Glucose 113 mg/dL (80-115); Potassium 3.9 mmol/L (3.5-5.1); Protein, Total 6.1 g/dL (6.0-8.3); Sodium 133 mmol/L (136-145)
[2018-09-11 00:26] LABS: Band 7 % (5-11); Hemoglobin 10.4 g/dL (12.0-16.0); Lymphocytes 14 % (21-51); MDiff Complete? YES; Mean Corpuscular Hemoglobin 25.1 pg (27.0-31.0); Mean Corpuscular Volume 78.3 fL (78.0-98.0); Mean Platelet Volume 9.7 fL (7.4-10.4); Neutrophil 79 % (42-75); Platelet Count 182 thou/uL (130-400); RBC Distribution Width 19.4 % (11.5-14.5); Red Blood Cell (RBC) Count 4.16 mill/uL (4.20-5.40); White Blood Cell (WBC) Count 13.8 thou/uL (4.8-10.8)
[2018-09-11] MEDS ORDERED: Ondansetron PF 4 MG/2 ML Vial ONE (00:49)
[2018-09-11] MEDS ORDERED: Fentanyl 100 MCG/2 ML VIAL ONE ×2 (01:28→01:32)
== END 2018-09-11 01:42 | disposition home or self-care (01) ==
LOC: ERS 23:07
DX: E86.0 Dehydration (principal); D72.829 Elevated white blood cell count, unspecified; I49.9 Cardiac arrhythmia, unspecified; I10 Essential (primary) hypertension; F41.9 Anxiety disorder, unspecified; F32.9 Major depressive disorder, single episode, unspecified
CPT/HCPCS: 36415; 80053; 85025; J2405; J3010

== ENCOUNTER 2018-09-11 16:09 | Inpatient (IN) | payer BC ==
[2018-09-11 16:28] VITALS: BMI 20.9
[2018-09-11] MEDS ORDERED: Ondansetron PF 4 MG/2 ML Vial IVP PRN (17:17)
[2018-09-11] MEDS: Sodium Chloride 0.9% 1,000 ML IV SCH (18:08)
[2018-09-11] MEDS: cefTRIAXone\\ROCEPHIN 2 GM in Sodium Chloride 0.9% 100 ML IVPB SCH (18:08)
[2018-09-11] MEDS: Morphine 2 MG/ML SYRINGE SLOW IVP PRN ×2 (18:09→21:46)
[2018-09-11] MEDS: Ondansetron ODT 4 MG TAB PO PRN (18:10)
[2018-09-11] MEDS ORDERED: Senokot S 8.6-50 MG TAB PO PRN (18:19)
[2018-09-11 18:44] LABS: Mean Corpuscular HGB CONC 32.6 g/dL (32.0-36.0); Mean Corpuscular Hemoglobin 25.5 pg (27.0-31.0); Mean Corpuscular Volume 78.2 fL (78.0-98.0); Platelet Count 127 thou/uL (130-400); Red Blood Cell (RBC) Count 3.53 mill/uL (4.20-5.40); White Blood Cell (WBC) Count 4.4 thou/uL (4.8-10.8)
[2018-09-11 19:04] LABS: Anisocytosis SLIGHT = 6-15 cells (100X) (0-5/hpf); Band 14 % (5-11); Dohle Bodies SLIGHT; Lymphocytes 23 % (21-51); MDiff Complete? YES; Metamyelocyte 2 % (0-0); Monocytes 2 % (0-10); Neutrophil 58 % (42-75); Ovalocytes SLIGHT = 2-5 cells (100X) (0-1/hpf); Platelet Morphology Comment Appears Decreased; Polychromasia SLIGHT = 2-3 cells (100X) (0-2/hpf); Reactive Lymphocytes 1 % (0-10); Toxic Granulation SLIGHT; Vacuoles SLIGHT
[2018-09-11 19:05] LABS: Anion Gap 17 mmol/L (10-20); BUN (Urea Nitrogen) 7 mg/dL (9.8-20.1); Calc. Creatinine Clearance 79 mL/min (70-130); Calcium 7.4 mg/dL (7.8-10.44); Carbon Dioxide 15 mmol/L (23-31); Chloride 105 mmol/L (98-107); Estimated GFR-MDRD Greater than 90; Glucose 88 mg/dL (80-115); Potassium 3.3 mmol/L (3.5-5.1); Sodium 134 mmol/L (136-145)
[2018-09-11] MEDS ORDERED: diphenhydrAMINE 50 MG/ML VIAL IVP PRN (19:23)
[2018-09-11] MEDS: Lorazepam 0.5 MG TAB PO PRN (20:18)
[2018-09-11] MEDS: Fluconazole In NaCl,Iso-Osm 200 MG in Premix Bag 1 BAG IVPB SCH (20:19)
[2018-09-11] MEDS: buPROPion 75 MG TAB PO SCH (20:20)
[2018-09-11] MEDS: Latanoprost 0.005% Ophth Soln 2.5 ml Bottle EA EYE SCH (20:20)
[2018-09-11] MEDS: Famotidine/PF 20 mg/2ml Vial SLOW IVP SCH (20:22)
[2018-09-11] MEDS: Lidocaine Viscous Sol 2% 15 ml UD Cup SSW SCH (20:23)
[2018-09-11 21:18] LABS: Bilirubin Negative (Negative); Blood, Urine Negative (Negative); Clarity CLEAR (Clear); Glucose, Urine (Dipstick) Negative (Negative); Leukocyte Small (Negative); Nitrite Negative (Negative); Protein, Urine (Dipstick) Negative (Neg-Trace); Urobilinogen 0.2 mg/dL (0.2-1.0)
[2018-09-11 21:20] LABS: Bacteria/HPF None Seen HPF (None Seen); Hyaline Casts/LPF 0-3 HYALINE CAST LPF (0-3 Hyaline); Squamous Epithelial None Seen HPF (0-3)
[2018-09-11 21:25] LABS: Urine Culture Reflex Yes Yes
[2018-09-11] MEDS: Promethazine HCl 25 MG/ML VIAL IM/IV PRN (21:45)
--- NOTE | 2018-09-12 02:26 | HP ---
CHIEF COMPLAINT: Nausea, vomiting, and diarrhea x2 days. HISTORY OF PRESENT ILLNESS: The patient is a very pleasant 63-year-old female with past medical history of hepatitis C, depression, and recent diagnosed with pancreatic cancer, who presents to the hospital with nausea, vomiting, and diarrhea since Tuesday. The patient stated that she received chemotherapy on Tuesday. She was doing just fine until Tuesday. She started having oral sores followed by significant nausea, vomiting, and diarrhea on Tuesday. The patient stated on yesterday, which was , she had about 6 episodes of diarrhea. However, today, she has had only 2 or 3 episodes of diarrhea. She denies any fevers or chills. The patient came into the hospital since she is unable to keep anything down or hydrate herself. The patient also states that about 2 weeks ago, she did have a UTI and was put initially on Bactrim DS. However, she was called by her oncologist that her culture was resistant. She was called in a new prescription; however, due to her nausea and vomiting, she was unable to take a prescription. The patient currently has some dysuria and some burning sensation on urination, however, no other symptoms. PAST MEDICAL HISTORY: She has a history of depression, GERD, IBS, hepatitis C, pancreatic cancer, and fibromyalgia. PAST SURGICAL HISTORY: She has had a history of hysterectomy, cholecystectomy, appendectomy, and cervical laminectomy. She has also had a right knee arthroscopy. FAMILY HISTORY: Mother had a history of ovarian cancer. Sister has a history of lung cancer, who passed. ALLERGIES: SHE IS ALLERGIC TO CIPRO AND LEVAQUIN, SHE GETS ANXIETY. MEDICATIONS: 1. The patient is on bupropion 150 mg p.o. b.i.d. 2. She is on lorazepam 0.5 p.o. q.6 hours p.r.n. 3. She is on pantoprazole 40 mg p.o. daily. 4. She is also on promethazine 25 mg p.o. daily. 5. She is on some eye drops. 6. Latanoprost 7.5 mL one drop each eye at night. REVIEW OF SYSTEMS: All negative except for the ones mentioned above in the HPI. SOCIAL HISTORY: She is a former smoker, about 2 packs for 20 years. Denies any alcohol use or drug use. She is a full code. She lives with her . PHYSICAL EXAMINATION: VITAL SIGNS: Temperature of 99.2, pule 108, respirations 18, and oxygen saturation 98% on room air, and blood pressure 151/85. GENERAL: She is awake, alert, and oriented x3. Does not appear in any distress. HEENT: Normocephalic and atraumatic. No lymphadenopathy noted. Pupils are equal and reactive to light. Her oral cavity, she does have a couple of sores at the base of her tongue, also a couple of sores to bilateral buccal cavity. She also has some mild oral thrush that is noted on her tongue. CV: S1 and S2 present. No murmurs, rubs, or gallops. LUNGS: Clear to auscultation. No rhonchi or wheezes noted. ABDOMEN: Soft. Bowel sounds are present x2. Mild pain upon palpation to all over abdomen area. EXTREMITIES: No edema. Pedal pulses are present x2. NEUROVASCULAR: She has no focal deficits noted. SKIN: No cuts, lesions, or bruises noted. LABORATORY DATA: Laboratory results are as of the following; sodium of 134, potassium of 3.3, BUN of 7, creatinine of 0.58, and bicarb of 15. CBC; WBC of 4.4, hemoglobin of 9.0, hematocrit of 27.6, and platelets of 127. She has bands. ASSESSMENT AND PLAN: The patient is a very pleasant 63-year-old female, who presents to the hospital with complaints of nausea, vomiting, and diarrhea. 1. Nausea, vomiting, and diarrhea, most likely secondary to her post chemotherapy. I will start the patient on some antiemetics, start her on some IV hydration. We will start her on clear liquids and advance diet as tolerated. The patient also complains of some pain when she swallows. She does have some oral thrush and she has been using swish and swallow, however, according to her, it has not been helping her. I will go ahead and order her Diflucan IV doses x3. Also, I will order her some Lidoderm numbing agents for her oral sores. 2. For the diarrhea, I will check fecal leukocytes and Clostridium difficile. However, I believe this is most likely secondary to chemo-induced. 3. Urinary tract infection. I will start her on ceftriaxone. Her cultures does indicate sensitivity to ceftriaxone and her culture indicated Escherichia coli. I will start her on that therapy. 4. History of depression. We will continue her home medication. 5. Deep venous thrombosis prophylaxis. We will put the patient on SCDs and Lovenox. Job ID: [id number]
[2018-09-12] MEDS: Morphine 2 MG/ML SYRINGE SLOW IVP PRN ×5 (03:02→20:07)
[2018-09-12] MEDS: Sodium Chloride 0.9% 1,000 ML IV SCH ×2 (05:57→18:45)
[2018-09-12] MEDS: Promethazine HCl 25 MG/ML VIAL IM/IV PRN ×3 (06:07→20:04)
[2018-09-12] MEDS ORDERED: Loperamide HCl 2 MG CAP PO PRN (09:07)
[2018-09-12] MEDS ORDERED: Diphenoxylate HCl/Atropine Tablet PO PRN (09:07)
[2018-09-12] MEDS: Aluminum & Magnesium Hydroxide 60 ML, Lidocaine 2% Viscous Solution 30 ML, diphenhydrAM... SSW PRN ×3 (09:08→18:40)
[2018-09-12] MEDS: Enoxaparin Sodium 40 MG/0.4 ML SYRINGE SC SCH (09:08)
[2018-09-12] MEDS: Famotidine/PF 20 mg/2ml Vial SLOW IVP SCH ×2 (09:09→20:04)
[2018-09-12] MEDS: Lidocaine Viscous Sol 2% 15 ml UD Cup SSW SCH ×3 (09:09→20:05)
[2018-09-12] MEDS: buPROPion 75 MG TAB PO SCH ×2 (09:10→20:04)
[2018-09-12 09:30] LABS: ALT (SGPT) 21 U/L (8-55); AST (SGOT) 24 U/L (5-34); Albumin 3.4 g/dL (3.4-4.8); Alkaline Phosphatase 251 U/L (40-150); Bilirubin, Direct 0.3 mg/dL (0.1-0.3); Bilirubin, Total 0.6 mg/dL (0.2-1.2); Protein, Total 5.6 g/dL (6.0-8.3)
--- NOTE | 2018-09-12 12:21 | CT ---
ABDOMEN AND PELVIC CT SCAN WITH IV CONTRAST: Comparison: 08-03-18 History: Pancreatic cancer, nausea and vomiting and diarrhea four days ago. FINDINGS: No evidence for pulmonary metastasis. Status post cholecystectomy with common duct internal draining catheter with some pneumobilia but no evidence for intrahepatic ductal dilatation, improved from the prior study. Persistent and overall stable poorly circumscribed mass in the region of the head of the pancreas measuring approximately 3.1 x 4.0 cm. This mass does appear to involve the superior mesente simona artery. An intact superior mesenteric vein is not visualized. The splenic vein and portal vein ar e intact. No evidence for associated adenopathy. No liver metastasis. There is some abnormal enhancem ent involving the wall of the colon with some associated colonic wall thickening throughout the colon , evidence for nonspecific colitis but without significant pericolonic abnormal fat stranding. Small stable right lower quadrant mesenteric lymph node. No abscess or abnormal fluid collection within the abdomen or pelvis. IMPRESSION: 1. Overall stable appearing pancreatic mass which appears to be involving the superior mesenteric [place] with nonvisualization of the superior mesenteric vein but with intact splenic vein and portal vei n. Abnormal enhancement and wall thickening of the colon, evidence for nonspecific colitis but withou t significant pericolonic abnormal fat stranding or abnormal fluid collection. Internal biliary drain age catheter in place with decompression of the intrahepatic ducts with some pneumobilia. Code T POS: OFF
--- NOTE | 2018-09-12 13:35 | PDOC.PN ---
- Subjective Encounter Start Date: 09/12/18 Encounter Start Time: 11:05 Subjective: pt up in bed still has n/v - Objective Resuscitation Status - Order Detail: 09/11/18 18:19 Resuscitation Status Routine Resuscitation Status: FULL: Full Resuscitation Vital Signs & Weight: Vital Signs (12 hours) Temp Pulse Resp BP BP Pulse Ox 09/12/18 11:25 99.1 F 109 H 14 142/64 H 98 09/12/18 09:15 96 09/12/18 07:30 99.0 F 122 H 16 133/74 96 09/12/18 04:47 99.1 F 102 H 16 180/81 H 98 Weight Admit Weight 110 lb Weight 110 lb 12.8 oz Result Diagrams: 09/11/18 18:28 09/11/18 18:28 Phys Exam - Physical Examination mouth sores Neck: no nodes, no JVD, supple, full ROM Respiratory: no wheezing, no rales, no rhonchi, wheezing present, clear to auscultation bilateral Cardiovascular: RRR, no significant murmur, no rub, gallop, irregular Gastrointestinal: soft, non-tender, no distention, positive bowel sounds Dx/Plan (1) Nausea & vomiting Code(s): R11.2 - NAUSEA WITH VOMITING, UNSPECIFIED Status: Acute (2) UTI (urinary tract infection) Status: Acute (3) Diarrhea Code(s): R19.7 - DIARRHEA, UNSPECIFIED Status: Acute - Plan cdiff negative, pt states she feels much better today. -: will advance diet as pt tolerates. * . Review of Systems - Review of Systems Respiratory: negative: Cough, Dry, Shortness of Breath, Hemoptysis, SOB with Excertion, Pleuritic Pain, Sputum, Wheezing Gastrointestinal: Nausea, Abdominal Pain, Diarrhea Genitourinary: negative: Dysuria, Frequency, Incontinence, Hematuria, Retention , Other - Medications/Allergies Allergies/Adverse Reactions: Allergies Allergy/AdvReac Type Severity Reaction Status Date / Time ciprofloxacin [From Cipro] Allergy Verified 08/10/18 16:08 duloxetine [From Cymbalta] Allergy Verified 08/10/18 16:08 levofloxacin [From Levaquin] Allergy Verified 08/10/18 16:08 teriparatide [From Forteo] Allergy Verified 08/10/18 16:08 Medications: Current Medications Bupropion HCl (Wellbutrin) 150 mg PO BID [facility] Last Admin: 09/12/18 09:10 Dose: 150 mg Al Hydroxide/Mg Hydroxide 60 ml/ Lidocaine HCl 30 ml/Diphenhydramine HCl 75 mg 0 ml SSW PRN PRN PRN Reason: Mouth Irritation Last Admin: 09/12/18 11:53 Dose: 10 ml Diphenhydramine HCl (Benadryl) 12 mg IVP Q6H PRN PRN Reason: Itching Diphenoxylate HCl/Atropine (Lomotil) 1 tab PO Q4H PRN PRN Reason: Diarrhea/Loose Stools Enoxaparin Sodium (Lovenox) 40 mg SC 0900 [facility] Last Admin: 09/12/18 09:08 Dose: 40 mg Famotidine (Pepcid) 20 mg SLOW IVP Q12HR [facility] Last Admin: 09/12/18 09:09 Dose: 20 mg Sodium Chloride (Normal Saline 0.9%) 1,000 mls @ 100 mls/hr IV .Q10H [facility] Last Admin: 09/12/18 05:57 Dose: 1,000 mls Ceftriaxone Sodium 2 gm/ (Sodium Chloride) 100 mls @ 200 mls/hr IVPB Q24HR [facility] Last Admin: 09/11/18 18:08 Dose: 100 mls Fluconazole/Sodium Chloride (200 mg/ Device) 100 mls @ 100 mls/hr IVPB Q24HR [facility] Stop: 09/13/18 20:59 Last Admin: 09/11/18 20:19 Dose: 100 mls Latanoprost (Xalatan 0.005% Ophth Soln) 1 drop EA EYE HS [facility] Last Admin: 09/11/18 20:20 Dose: 1 drop Lidocaine HCl (Xylocaine 2% Viscous) 15 ml SSW TID [facility] Last Admin: 09/12/18 09:09 Dose: Not Given Loperamide HCl (Imodium) 2 mg PO Q4H PRN PRN Reason: Diarrhea/Loose Stools Lorazepam (Ativan) 0.5 mg PO Q6HR PRN PRN Reason: Anxiety/Restlessness/Sleep Last Admin: 09/11/18 20:18 Dose: 0.5 mg Morphine Sulfate (Morphine) 2 mg SLOW IVP Q4H PRN PRN Reason: Moderate to Severe Pain (6-10) Last Admin: 09/12/18 11:08 Dose: 2 mg Ondansetron HCl (Zofran Odt) 4 mg PO Q6H PRN PRN Reason: Nausea/Vomiting Last Admin: 09/11/18 18:10 Dose: 4 mg Ondansetron HCl (Zofran) 8 mg IVP Q6H PRN PRN Reason: Nausea/Vomiting Pantoprazole Sodium (Protonix) 40 mg PO DAILY [facility] Last Admin: 09/12/18 09:10 Dose: 40 mg Promethazine HCl (Phenergan) 25 mg IM/IV Q6H PRN PRN Reason: Nausea/Vomiting Last Admin: 09/12/18 11:09 Dose: 25 mg Sodium Chloride (Flush - Normal Saline) 10 ml IVF Q12HR [facility] Last Admin: 09/12/18 09:09 Dose: 10 ml Sodium Chloride (Flush - Normal Saline) 10 ml IVF PRN PRN PRN Reason: Saline Flush
--- NOTE | 2018-09-12 14:54 | CON ---
DATE OF CONSULTATION: 09/12/2018 HISTORY OF PRESENT ILLNESS: Ms. Nunes is a 63-year-old female was recently diagnosed adenocarcinoma of the pancreas, locally advanced, receiving neoadjuvant chemotherapy. She just received cycle #2 of FOLFIRINOX approximately 1 week before this admission. She presented to the office with nausea and vomiting as well as cramping and diarrhea. She appeared somewhat dehydrated. She also had been diagnosed with urinary tract infection over the weekend and was taking Bactrim, but the culture on the day of admission came back resistant to Bactrim. She has not been taking any significant p.o. and has been losing weight as an outpatient. She denies fevers or chills. She does have significant mucositis from the chemotherapy at this point. She is admitted for dehydration and further supportive care. PAST MEDICAL HISTORY: 1. Recently diagnosed pancreatic adenocarcinoma, receiving neoadjuvant chemotherapy with modified FOLFIRINOX. 2. Gastroesophageal reflux disease. 3. Irritable bowel syndrome. 4. Hepatitis C. 5. Depression. CURRENT MEDICATIONS: 1. Magic mouthwash p.r.n. 2. Wellbutrin 150 mg p.o. b.i.d. 3. Ceftriaxone 2 g IV daily. 4. Benadryl IV q.6 hours p.r.n. 5. Lovenox 40 mg subcu daily. 6. Pepcid 20 mg IV q.12 hours. 7. Fluconazole 200 mg IV daily. 8. Latanoprost ophthalmic solution. 9. Ativan 0.5 mg p.o. q.6 hours p.r.n. 10. Morphine 2 mg IV q.4 hours p.r.n. 11. Zofran 4 mg p.o. q.6 hours p.r.n. 12. Zofran 4 mg IV q.6 hours p.r.n. 13. Protonix 40 mg p.o. daily. 14. Phenergan 25 mg IV q.6 hours p.r.n. 15. Senokot two tablets p.o. b.i.d. p.r.n. ALLERGIES: CIPROFLOXACIN, DULOXETINE, LEVOFLOXACIN, AND TERIPARATIDE. FAMILY HISTORY: Negative for GI or pancreatic malignancies. 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 She lives in the [facility] with a very supportive family including a daughter, who is a nurse practitioner in the [facility] area. She denies any significant tobacco or alcohol use. REVIEW OF SYSTEMS: Otherwise, 10-point review of systems is negative. PHYSICAL EXAMINATION: VITAL SIGNS: Temperature 99.0, pulse 102 to 122, respirations 16, O2 saturation 96% to 98% on room air, and blood pressure 180/81. GENERAL: She is lying supine, in no acute distress, pleasant but slender appearing. HEENT: Extraocular muscles are intact. Pupils are equal, round, and reactive to light. Sclerae are anicteric. NECK: Supple without lymphadenopathy. CARDIOVASCULAR: Regular rhythm, but tachycardic. LUNGS: Clear to auscultation bilaterally. ABDOMEN: Hypoactive bowel sounds. Soft, minimally tender in the midepigastric area. EXTREMITIES: No edema. She does have SCDs in place. No petechiae. No bruising. LABORATORY DATA: White blood cell count 4.4, hemoglobin 9.0, platelets 127. Sodium 134, potassium 3.3, chloride 105, CO2 of 15, BUN 7, creatinine 0.5, glucose 88, and calcium 7.4. Urinalysis done as an outpatient shows an E. coli UTI, which is resistant to Bactrim, but susceptible to the cephalosporins and the quinolones. ASSESSMENT: Ms. Nunes is a 63-year-old female with: 1. Nausea, vomiting, diarrhea, cramping, and dehydration secondary to modified FOLFIRINOX chemotherapy. 2. Locally advanced pancreatic cancer. 3. Malnutrition. 4. Urinary tract infection. PLAN: 1. We will add PPN since she is here for the next couple of days, getting IV antibiotics for the UTI and hydration. 2. Continue hydration. 3. Add Lomotil and Imodium, and discontinue Senokot. 4. Increase Zofran dose and continue use of Phenergan. 5. Continue antibiotics. 6. CT of the abdomen and pelvis to reassess the pancreatic malignancy and make sure there is no other sign of abdominal disease. 7. Recheck CA-19-9. Job ID: [id number]
[2018-09-12] MEDS ORDERED: Iopamidol 370 76% 100 ML VIAL ONE (15:02)
[2018-09-12] MEDS: Ondansetron PF 4 MG/2 ML Vial IVP PRN (15:05)
[2018-09-12] MEDS: cefTRIAXone\\ROCEPHIN 2 GM in Sodium Chloride 0.9% 100 ML IVPB SCH (18:39)
[2018-09-12] MEDS: Latanoprost 0.005% Ophth Soln 2.5 ml Bottle EA EYE SCH (20:05)
[2018-09-12] MEDS: Fluconazole In NaCl,Iso-Osm 200 MG in Premix Bag 1 BAG IVPB SCH (20:05)
[2018-09-13] MEDS: Morphine 2 MG/ML SYRINGE SLOW IVP PRN ×6 (00:25→20:22)
[2018-09-13] MEDS: Ondansetron PF 4 MG/2 ML Vial IVP PRN ×3 (00:26→17:34)
[2018-09-13] MEDS: Sodium Chloride 0.9% 1,000 ML IV SCH ×2 (02:05→17:48)
[2018-09-13] MEDS: Promethazine HCl 25 MG in Sodium Chloride 0.9% 50 ML IVPB PRN ×3 (05:13→20:51)
[2018-09-13] MEDS: Lidocaine Viscous Sol 2% 15 ml UD Cup SSW SCH ×3 (05:14→21:11)
[2018-09-13 05:43] LABS: #Lymphocytes 0.7 thou/uL (1.20-3.40); #Monocytes 0.2 thou/uL (0.11-0.59); #Neutrophils 0.8 thou/uL (1.40-6.50); %Basophils 0.5 % (0.0-1.0); %Eosinophils 1.3 % (0.0-10.0); %Lymphocytes 42.1 % (21.0-51.0); %Monocytes 10.7 % (0.0-10.0); %Neutrophils 45.3 % (42.0-75.0); Hemoglobin 8.8 g/dL (12.0-16.0); Mean Corpuscular HGB CONC 33.2 g/dL (32.0-36.0); Mean Corpuscular Hemoglobin 25.7 pg (27.0-31.0); Mean Corpuscular Volume 77.6 fL (78.0-98.0); Platelet Count 118 thou/uL (130-400); RBC Distribution Width 19.1 % (11.5-14.5); Red Blood Cell (RBC) Count 3.42 mill/uL (4.20-5.40); White Blood Cell (WBC) Count 1.7 thou/uL (4.8-10.8)
[2018-09-13 06:03] LABS: ALT (SGPT) 23 U/L (8-55); AST (SGOT) 27 U/L (5-34); Albumin 3.2 g/dL (3.4-4.8); Alkaline Phosphatase 208 U/L (40-150); Anion Gap 13 mmol/L (10-20); BUN (Urea Nitrogen) Less than 4 mg/dL (9.8-20.1); Bilirubin, Total 0.4 mg/dL (0.2-1.2); Calc. Creatinine Clearance 83 mL/min (70-130); Calcium 7.8 mg/dL (7.8-10.44); Carbon Dioxide 17 mmol/L (23-31); Chloride 105 mmol/L (98-107); Estimated GFR-MDRD Greater than 90; Globulin 2.2 g/dL (2.4-3.5); Glucose 91 mg/dL (80-115); Protein, Total 5.4 g/dL (6.0-8.3); Sodium 132 mmol/L (136-145)
[2018-09-13] MEDS ORDERED: Potassium Chloride 40 MEQ in Premix Bag 1 BAG IVPB SCH (07:00)
[2018-09-13 07:53] LABS: Magnesium 1.7 mg/dL (1.6-2.6)
[2018-09-13 08:14] LABS: Phosphorus 1.2 mg/dL (2.3-4.7)
[2018-09-13] MEDS ORDERED: Potassium Phosphate 12 MMOL in Sodium Chloride 0.9% 100 ML IVPB SCH (08:45)
[2018-09-13] MEDS: Aluminum & Magnesium Hydroxide 60 ML, Lidocaine 2% Viscous Solution 30 ML, diphenhydrAM... SSW PRN ×2 (09:03→17:47)
[2018-09-13] MEDS: Ondansetron ODT 4 MG TAB PO PRN (09:05)
[2018-09-13] MEDS: Enoxaparin Sodium 40 MG/0.4 ML SYRINGE SC SCH (09:05)
[2018-09-13] MEDS: buPROPion 75 MG TAB PO SCH ×2 (09:05→20:27)
[2018-09-13] MEDS: Famotidine/PF 20 mg/2ml Vial SLOW IVP SCH (09:06)
[2018-09-13] MEDS ORDERED: D5W-AA 4.25% with LYTES 1,000 ML BAG IV SCH (09:45)
[2018-09-13] MEDS ORDERED: Sodium Chloride 0.9% 500 ML IV SCH (17:45)
[2018-09-13] MEDS: cefTRIAXone\\ROCEPHIN 2 GM in Sodium Chloride 0.9% 100 ML IVPB SCH (18:27)
--- NOTE | 2018-09-13 20:13 | PDOC.PN ---
- Subjective Encounter Start Date: 09/13/18 Encounter Start Time: 12:30 Subjective: pt up in bed feels much better - Objective Resuscitation Status - Order Detail: 09/11/18 18:19 Resuscitation Status Routine Resuscitation Status: FULL: Full Resuscitation Vital Signs & Weight: Vital Signs (12 hours) Temp Pulse Resp BP Pulse Ox 09/13/18 17:00 98.7 F 09/13/18 15:35 99.1 F 113 H 14 137/78 96 09/13/18 12:25 98.6 F 09/13/18 11:40 99.0 F 100 16 149/71 H 100 Weight Admit Weight 110 lb Weight 110 lb 12.8 oz I&O: 09/12/18 09/13/18 09/14/18 06:59 06:59 06:59 Intake Total 2039 1520 Balance 2039 1520 Result Diagrams: 09/13/18 05:26 09/13/18 05:26 Phys Exam - Physical Examination Neck: no nodes, no JVD, supple, full ROM Respiratory: no wheezing, no rales, no rhonchi, wheezing present, clear to auscultation bilateral Cardiovascular: RRR, no significant murmur, no rub, gallop, irregular Gastrointestinal: soft, non-tender, no distention, positive bowel sounds Dx/Plan (1) Nausea & vomiting Code(s): R11.2 - NAUSEA WITH VOMITING, UNSPECIFIED Status: Acute (2) UTI (urinary tract infection) Status: Acute (3) Diarrhea Code(s): R19.7 - DIARRHEA, UNSPECIFIED Status: Acute - Plan pt started on ppn, will give ns bolus x1, -: will add ensure. electrolytes replaced. -: will continue abx for now * . Review of Systems - Review of Systems Respiratory: negative: Cough, Dry, Shortness of Breath, Hemoptysis, SOB with Excertion, Pleuritic Pain, Sputum, Wheezing Cardiovascular: negative: chest pain, palpitations, orthopnea, paroxysmal nocturnal dyspnea, edema, light headedness, other - Medications/Allergies Allergies/Adverse Reactions: Allergies Allergy/AdvReac Type Severity Reaction Status Date / Time ciprofloxacin [From Cipro] Allergy Verified 08/10/18 16:08 duloxetine [From Cymbalta] Allergy Verified 08/10/18 16:08 levofloxacin [From Levaquin] Allergy Verified 08/10/18 16:08 teriparatide [From Forteo] Allergy Verified 08/10/18 16:08 Medications: Current Medications Amino Acids/Electrolytes/Dextrose (Clinimix E 4.25/5) 1,000 ml IV ONE [facility] Stop: 09/13/18 21:00 Last Admin: 09/13/18 14:41 Dose: 1,000 ml Bupropion HCl (Wellbutrin) 150 mg PO BID [facility] Last Admin: 09/13/18 09:05 Dose: 150 mg Al Hydroxide/Mg Hydroxide 60 ml/ Lidocaine HCl 30 ml/Diphenhydramine HCl 75 mg 0 ml SSW PRN PRN PRN Reason: Mouth Irritation Last Admin: 09/13/18 17:47 Dose: 10 ml Diphenhydramine HCl (Benadryl) 12 mg IVP Q6H PRN PRN Reason: Itching Diphenoxylate HCl/Atropine (Lomotil) 1 tab PO Q4H PRN PRN Reason: Diarrhea/Loose Stools Enoxaparin Sodium (Lovenox) 40 mg SC 0900 [facility] Last Admin: 09/13/18 09:05 Dose: 40 mg Sodium Chloride (Normal Saline 0.9%) 1,000 mls @ 100 mls/hr IV .Q10H [facility] Last Admin: 09/13/18 17:48 Dose: 1,000 mls Ceftriaxone Sodium 2 gm/ (Sodium Chloride) 100 mls @ 200 mls/hr IVPB Q24HR [facility] Last Admin: 09/13/18 18:27 Dose: 100 mls Fluconazole/Sodium Chloride (200 mg/ Device) 100 mls @ 100 mls/hr IVPB Q24HR [facility] Stop: 09/13/18 20:59 Last Admin: 09/12/18 20:05 Dose: 100 mls Promethazine HCl 25 mg/ Sodium (Chloride) 51 mls @ 153 mls/hr IVPB Q6H PRN PRN Reason: Nausea Last Admin: 09/13/18 13:02 Dose: 51 mls Latanoprost (Xalatan 0.005% Ophth Soln) 1 drop EA EYE HS [facility] Last Admin: 09/12/18 20:05 Dose: 1 drop Lidocaine HCl (Xylocaine 2% Viscous) 15 ml SSW TID [facility] Last Admin: 09/13/18 14:40 Dose: 15 ml Loperamide HCl (Imodium) 2 mg PO Q4H PRN PRN Reason: Diarrhea/Loose Stools Lorazepam (Ativan) 0.5 mg PO Q6HR PRN PRN Reason: Anxiety/Restlessness/Sleep Last Admin: 09/11/18 20:18 Dose: 0.5 mg Morphine Sulfate (Morphine) 2 mg SLOW IVP Q4H PRN PRN Reason: Moderate to Severe Pain (6-10) Last Admin: 09/13/18 17:34 Dose: 2 mg Ondansetron HCl (Zofran Odt) 4 mg PO Q6H PRN PRN Reason: Nausea/Vomiting Last Admin: 09/11/18 18:10 Dose: 4 mg Ondansetron HCl (Zofran) 8 mg IVP Q6H PRN PRN Reason: Nausea/Vomiting Last Admin: 09/13/18 17:34 Dose: 8 mg Pantoprazole Sodium (Protonix) 40 mg PO DAILY [facility] Last Admin: 09/13/18 09:05 Dose: 40 mg Sodium Chloride (Flush - Normal Saline) 10 ml IVF Q12HR [facility] Last Admin: 09/13/18 09:06 Dose: 10 ml Sodium Chloride (Flush - Normal Saline) 10 ml IVF PRN PRN PRN Reason: Saline Flush
[2018-09-13] MEDS: Lorazepam 0.5 MG TAB PO PRN (20:30)
[2018-09-13] MEDS: Fluconazole In NaCl,Iso-Osm 200 MG in Premix Bag 1 BAG IVPB SCH (20:59)
[2018-09-13] MEDS: Latanoprost 0.005% Ophth Soln 2.5 ml Bottle EA EYE SCH (21:11)
[2018-09-14] MEDS: Morphine 2 MG/ML SYRINGE SLOW IVP PRN ×6 (00:20→21:40)
[2018-09-14] MEDS: Ondansetron PF 4 MG/2 ML Vial IVP PRN ×3 (00:20→17:43)
[2018-09-14] MEDS: Promethazine HCl 25 MG in Sodium Chloride 0.9% 50 ML IVPB PRN ×3 (04:25→20:59)
[2018-09-14] MEDS: Aluminum & Magnesium Hydroxide 60 ML, Lidocaine 2% Viscous Solution 30 ML, diphenhydrAM... SSW PRN (08:34)
[2018-09-14] MEDS: Lidocaine Viscous Sol 2% 15 ml UD Cup SSW SCH ×3 (08:34→21:00)
[2018-09-14] MEDS: Enoxaparin Sodium 40 MG/0.4 ML SYRINGE SC SCH (08:36)
[2018-09-14] MEDS: buPROPion 75 MG TAB PO SCH ×2 (08:36→20:59)
[2018-09-14] MEDS: Sodium Chloride 0.9% 1,000 ML IV SCH ×2 (08:45→23:19)
[2018-09-14 09:33] LABS: Hemoglobin 9.6 g/dL (12.0-16.0); Mean Corpuscular HGB CONC 33.1 g/dL (32.0-36.0); Mean Corpuscular Hemoglobin 25.4 pg (27.0-31.0); Mean Corpuscular Volume 76.9 fL (78.0-98.0); Mean Platelet Volume 10.9 fL (7.4-10.4); Platelet Count 112 thou/uL (130-400); RBC Distribution Width 19.3 % (11.5-14.5); Red Blood Cell (RBC) Count 3.76 mill/uL (4.20-5.40); White Blood Cell (WBC) Count 1.6 thou/uL (4.8-10.8)
[2018-09-14] MEDS: D5W-AA 4.25% with LYTES 1,000 ML BAG IV SCH ×2 (10:50→21:34)
[2018-09-14 12:12] LABS: Anion Gap 13 mmol/L (10-20); BUN (Urea Nitrogen) 6 mg/dL (9.8-20.1); Calc. Creatinine Clearance 73 mL/min (70-130); Calcium 8.4 mg/dL (7.8-10.44); Carbon Dioxide 20 mmol/L (23-31); Chloride 103 mmol/L (98-107); Estimated GFR-MDRD Greater than 90; Glucose 165 mg/dL (80-115); Potassium 3.3 mmol/L (3.5-5.1); Sodium 133 mmol/L (136-145)
--- NOTE | 2018-09-14 14:00 | PDOC.PN ---
- Subjective Encounter Start Date: 09/14/18 Encounter Start Time: 10:15 Subjective: pt up in bed feels much better - Objective Resuscitation Status - Order Detail: 09/11/18 18:19 Resuscitation Status Routine Resuscitation Status: FULL: Full Resuscitation Vital Signs & Weight: Vital Signs (12 hours) Temp Pulse Resp BP Pulse Ox 09/14/18 12:00 98.9 F 107 H 16 135/66 100 09/14/18 09:36 98.1 F 110 H 16 106/62 98 09/14/18 08:00 98 09/14/18 04:02 98.4 F 100 16 124/68 99 09/14/18 03:46 98.4 F 100 16 124/68 99 Weight Admit Weight 110 lb Weight 110 lb 12.8 oz I&O: 09/13/18 09/14/18 09/15/18 06:59 06:59 06:59 Intake Total 2039 1640 Balance 0 1640 Result Diagrams: 09/14/18 08:42 09/14/18 11:05 Phys Exam - Physical Examination Neck: no nodes, no JVD, supple, full ROM Respiratory: no wheezing, no rales, no rhonchi, wheezing present, clear to auscultation bilateral Cardiovascular: RRR, no significant murmur, no rub, gallop, irregular Gastrointestinal: soft, non-tender, no distention, positive bowel sounds Dx/Plan (1) Nausea & vomiting Code(s): R11.2 - NAUSEA WITH VOMITING, UNSPECIFIED Status: Acute (2) UTI (urinary tract infection) Status: Acute (3) Diarrhea Code(s): R19.7 - DIARRHEA, UNSPECIFIED Status: Acute - Plan will replace electrolytes -: she is eating more than when she came in -: continue abx for uti * . Review of Systems - Review of Systems Respiratory: negative: Cough, Dry, Shortness of Breath, Hemoptysis, SOB with Excertion, Pleuritic Pain, Sputum, Wheezing Cardiovascular: negative: chest pain, palpitations, orthopnea, paroxysmal nocturnal dyspnea, edema, light headedness, other - Medications/Allergies Allergies/Adverse Reactions: Allergies Allergy/AdvReac Type Severity Reaction Status Date / Time ciprofloxacin [From Cipro] Allergy Verified 08/10/18 16:08 duloxetine [From Cymbalta] Allergy Verified 08/10/18 16:08 levofloxacin [From Levaquin] Allergy Verified 08/10/18 16:08 teriparatide [From Forteo] Allergy Verified 08/10/18 16:08 Medications: Current Medications Amino Acids/Electrolytes/Dextrose (Clinimix E 4.25/5) 1,000 ml IV INF [facility] Stop: 09/24/18 08:16 Last Admin: 09/14/18 10:50 Dose: 1,000 ml Bupropion HCl (Wellbutrin) 150 mg PO BID [facility] Last Admin: 09/14/18 08:36 Dose: 150 mg Al Hydroxide/Mg Hydroxide 60 ml/ Lidocaine HCl 30 ml/Diphenhydramine HCl 75 mg 0 ml SSW PRN PRN PRN Reason: Mouth Irritation Last Admin: 09/14/18 08:34 Dose: 10 ml Diphenhydramine HCl (Benadryl) 12 mg IVP Q6H PRN PRN Reason: Itching Diphenoxylate HCl/Atropine (Lomotil) 1 tab PO Q4H PRN PRN Reason: Diarrhea/Loose Stools Enoxaparin Sodium (Lovenox) 40 mg SC 0900 [facility] Last Admin: 09/14/18 08:36 Dose: 40 mg Sodium Chloride (Normal Saline 0.9%) 1,000 mls @ 100 mls/hr IV .Q10H [facility] Last Admin: 09/14/18 08:45 Dose: 1,000 mls Ceftriaxone Sodium 2 gm/ (Sodium Chloride) 100 mls @ 200 mls/hr IVPB Q24HR [facility] Last Admin: 09/13/18 18:27 Dose: 100 mls Promethazine HCl 25 mg/ Sodium (Chloride) 51 mls @ 153 mls/hr IVPB Q6H PRN PRN Reason: Nausea Last Admin: 09/14/18 12:38 Dose: 51 mls Potassium Chloride 40 meq/ (Device) 400 mls @ 100 mls/hr IVPB NOW [facility] Latanoprost (Xalatan 0.005% Ophth Soln) 1 drop EA EYE HS [facility] Last Admin: 09/13/18 21:11 Dose: 1 drop Lidocaine HCl (Xylocaine 2% Viscous) 15 ml SSW TID [facility] Last Admin: 09/14/18 08:34 Dose: 15 ml Loperamide HCl (Imodium) 2 mg PO Q4H PRN PRN Reason: Diarrhea/Loose Stools Lorazepam (Ativan) 0.5 mg PO Q6HR PRN PRN Reason: Anxiety/Restlessness/Sleep Last Admin: 09/13/18 20:30 Dose: 0.5 mg Morphine Sulfate (Morphine) 2 mg SLOW IVP Q4H PRN PRN Reason: Moderate to Severe Pain (6-10) Last Admin: 09/14/18 12:38 Dose: 2 mg Ondansetron HCl (Zofran Odt) 4 mg PO Q6H PRN PRN Reason: Nausea/Vomiting Last Admin: 09/11/18 18:10 Dose: 4 mg Ondansetron HCl (Zofran) 8 mg IVP Q6H PRN PRN Reason: Nausea/Vomiting Last Admin: 09/14/18 08:34 Dose: 8 mg Pantoprazole Sodium (Protonix) 40 mg PO DAILY [facility] Last Admin: 09/14/18 08:36 Dose: 40 mg Sodium Chloride (Flush - Normal Saline) 10 ml IVF Q12HR [facility] Last Admin: 09/14/18 08:37 Dose: 10 ml Sodium Chloride (Flush - Normal Saline) 10 ml IVF PRN PRN PRN Reason: Saline Flush
[2018-09-14] MEDS ORDERED: Potassium Chloride 40 MEQ in Sodium Chloride 0.9% 250 ML 250 ML IVPB SCH (15:00)
[2018-09-14] MEDS: cefTRIAXone\\ROCEPHIN 2 GM in Sodium Chloride 0.9% 100 ML IVPB SCH (17:43)
[2018-09-14] MEDS ORDERED: Promethazine HCl 25 MG/ML VIAL IM/IV PRN (20:09)
[2018-09-14] MEDS ORDERED: Morphine 2 MG/ML SYRINGE SLOW IVP PRN (20:10)
[2018-09-14] MEDS: Lorazepam 0.5 MG TAB PO PRN (20:59)
[2018-09-14] MEDS: Latanoprost 0.005% Ophth Soln 2.5 ml Bottle EA EYE SCH (21:00)
[2018-09-15] MEDS: Morphine 2 MG/ML SYRINGE SLOW IVP PRN ×3 (03:10→11:42)
[2018-09-15] MEDS: Ondansetron PF 4 MG/2 ML Vial IVP PRN ×3 (03:15→22:29)
[2018-09-15] MEDS: Sodium Chloride 0.9% 1,000 ML IV SCH ×2 (06:06→17:19)
[2018-09-15 06:35] LABS: Magnesium 1.7 mg/dL (1.6-2.6); Phosphorus 2.2 mg/dL (2.3-4.7)
[2018-09-15] MEDS: Aluminum & Magnesium Hydroxide 60 ML, Lidocaine 2% Viscous Solution 30 ML, diphenhydrAM... SSW PRN ×3 (07:28→20:21)
[2018-09-15] MEDS: Promethazine HCl 25 MG in Sodium Chloride 0.9% 50 ML IVPB PRN ×2 (08:51→17:17)
[2018-09-15] MEDS: Lidocaine Viscous Sol 2% 15 ml UD Cup SSW SCH ×2 (08:53→15:16)
[2018-09-15] MEDS: buPROPion 75 MG TAB PO SCH ×2 (08:54→20:18)
[2018-09-15] MEDS: Enoxaparin Sodium 40 MG/0.4 ML SYRINGE SC SCH (08:56)
[2018-09-15] MEDS: D5W-AA 4.25% with LYTES 1,000 ML BAG IV SCH ×2 (08:59→22:23)
--- NOTE | 2018-09-15 11:57 | PQF ---
CLINICAL DOCUMENTATION IMPROVEMENT CLARIFICATION FORM: ICD-10 Updated PLEASE DO AN ADDENDUM TO THE PROGRESS NOTE WITH ANY DOCUMENTATION UPDATES OR ADDITIONS AND CARRY THROUGH TO DC SUMMARY. THANK YOU. Date: 09/15/2018 ATTN: Dr. Cloud Please exercise your independent, professional judgment in responding to the clarification form. Clinical indicators are provided on the bottom of this form for your review Please check appropriate box(s): [x ] Protein Calorie Malnutrition: [ ] Mild [ x ] Moderate [ ] Severe [ ] Other Malnutrition (please specify) ____ [ ] Other diagnosis ____ [ ] Unable to determine In addition, please specify: Present on Admission (POA): [ x] Yes [ ] No [ ] Unable to determine CLINICAL INDICATORS - SIGNS / SYMPTOMS / LABS 09/12 (Jim) She has not been taking any significant p.o. and has been losing weight as an outpatient. Malnutrition [employer] Assessment 09/12: -24% weight loss over 6 months with decreased po intake x 45 days, moderate muscle wasting observed and minimal visceral fat suggested of severe malnutrition in the context of a chronic illness RISKS: H&P 09/11: Past medical history of hepatitis C, recent diagnosed with pancreatic cancer. Oral thrush. Nausea, vomiting and diarrhea. UTI. TREATMENT: 09/12 Order: [employer] consult for peripheral parenteral nutrition 09/12 (Jim) We will add PPN since she is here for the next couple of days, Moderate Malnutrition (in acute illness) Energy Intake: <75% of estimated energy requirement for > 7 days Weight Loss: 1-2%/1 week; 5%/ 1 month; 7.5%/3 months Other: mild body fat loss; mild muscle mass loss; mild fluid accumulation; Severe Malnutrition (in acute illness) Energy Intake: < 50% of estimated energy requirement for > 5 days Weight Loss: >1-2%/1 week; >5%/1 month; >7.5%/3 months Other: moderate body fat loss; moderate muscle mass loss; moderate- severe fluid accumulation; measurably reduced surveyor instrument assistant strength Moderate Malnutrition (in chronic illness) Energy Intake: <75% of estimated energy requirement for >1 month Weight Loss: 5%/1 month; 7.5%/3 months; 10%/6 months; 20%/1 year Other: mild body fat loss; mild muscle mass loss; mild fluid accumulation Severe Malnutrition (in chronic illness) Energy Intake: <75% of estimated energy requirement for >1 month Weight Loss: >5%/1 month; >7.5%/3 months; >10%/6 months; >20%/1 year Other: severe body fat loss; severe muscle mass loss; severe fluid accumulation; measurably reduced surveyor instrument assistant strength Thank you, Summer (This form is maintained as a part of the permanent medical record) 2014 [employer], [place]. All Rights Reserved Summer Johnson RN, BSN [email or web address] Office: [phone] [facility] CENTERJose
[2018-09-15] MEDS: Morphine IR Tab 15 MG TAB PO PRN ×2 (15:16→20:16)
[2018-09-15] MEDS: cefTRIAXone\\ROCEPHIN 2 GM in Sodium Chloride 0.9% 100 ML IVPB SCH (18:17)
[2018-09-15] MEDS: Morphine ER 30 MG TAB PO SCH (20:17)
[2018-09-15] MEDS: Latanoprost 0.005% Ophth Soln 2.5 ml Bottle EA EYE SCH (20:19)
[2018-09-16] MEDS: Lidocaine Viscous Sol 2% 15 ml UD Cup SSW SCH ×4 (01:37→21:09)
[2018-09-16] MEDS: Promethazine HCl 25 MG in Sodium Chloride 0.9% 50 ML IVPB PRN ×2 (02:35→13:01)
[2018-09-16] MEDS: Sodium Chloride 0.9% 1,000 ML IV SCH ×2 (02:41→16:33)
[2018-09-16 05:45] LABS: Anisocytosis SLIGHT = 6-15 cells (100X) (0-5/hpf); Band 20 % (5-11); Hemoglobin 8.1 g/dL (12.0-16.0); Large Platelets SLIGHT; Lymphocytes 36 % (21-51); MDiff Complete? YES; Mean Corpuscular HGB CONC 33.2 g/dL (32.0-36.0); Mean Corpuscular Hemoglobin 25.8 pg (27.0-31.0); Mean Corpuscular Volume 77.6 fL (78.0-98.0); Mean Platelet Volume 6.6 fL (7.4-10.4); Metamyelocyte 2 % (0-0); Monocytes 10 % (0-10); Myelocyte 5 % (0-0); Neutrophil 25 % (42-75); Nucleated RBC 1 % (0); Ovalocytes SLIGHT = 2-5 cells (100X) (0-1/hpf); Platelet Count 86 thou/uL (130-400); Platelet Morphology Comment Appears Decreased; Polychromasia SLIGHT = 2-3 cells (100X) (0-2/hpf); RBC Distribution Width 19.9 % (11.5-14.5); Reactive Lymphocytes 2 % (0-10); Red Blood Cell (RBC) Count 3.15 mill/uL (4.20-5.40); Toxic Granulation SLIGHT; White Blood Cell (WBC) Count 6.5 thou/uL (4.8-10.8)
[2018-09-16] MEDS: Ondansetron PF 4 MG/2 ML Vial IVP PRN ×2 (08:16→14:29)
[2018-09-16] MEDS: buPROPion 75 MG TAB PO SCH ×2 (08:17→21:11)
[2018-09-16] MEDS: Morphine ER 30 MG TAB PO SCH ×2 (08:17→21:10)
[2018-09-16] MEDS: Enoxaparin Sodium 40 MG/0.4 ML SYRINGE SC SCH (08:18)
[2018-09-16] MEDS ORDERED: Potassium Phosphate 9 MMOL in Sodium Chloride 0.9% 100 ML IVPB SCH (09:15)
[2018-09-16] MEDS: D5W-AA 4.25% with LYTES 1,000 ML BAG IV SCH ×2 (10:03→22:27)
[2018-09-16] MEDS: Aluminum & Magnesium Hydroxide 60 ML, Lidocaine 2% Viscous Solution 30 ML, diphenhydrAM... SSW PRN (10:43)
[2018-09-16] MEDS ORDERED: Senokot S 8.6-50 MG TAB PO SCH (12:00)
[2018-09-16] MEDS: Sucralfate 1 GM/10 ML UDCUP SSW SCH ×3 (13:02→21:10)
[2018-09-16] MEDS: Morphine IR Tab 15 MG TAB PO PRN (13:03)
[2018-09-16] MEDS ORDERED: Acetaminophen 325 MG TAB PO PRN (14:54)
[2018-09-16] MEDS: Lorazepam 0.5 MG TAB PO PRN (16:31)
--- NOTE | 2018-09-16 17:32 | PDOC.PN ---
- Subjective Encounter Start Date: 09/16/18 Encounter Start Time: 11:30 Subjective: pt up in bed eating no issues - Objective Resuscitation Status - Order Detail: 09/11/18 18:19 Resuscitation Status Routine Resuscitation Status: FULL: Full Resuscitation Vital Signs & Weight: Vital Signs (12 hours) Temp Pulse Resp BP Pulse Ox 09/16/18 08:23 98.3 F 102 H 18 135/60 98 09/16/18 08:00 98 Weight Admit Weight 110 lb Weight 110 lb 12.8 oz I&O: 09/15/18 09/16/18 09/17/18 06:59 06:59 06:59 Intake Total 1520 2440 Balance 1520 2440 Result Diagrams: 09/16/18 04:30 09/14/18 11:05 Phys Exam - Physical Examination Neck: no nodes, no JVD, supple, full ROM Respiratory: no wheezing, no rales, no rhonchi, clear to auscultation bilateral Cardiovascular: RRR, no significant murmur, no rub, gallop, irregular Gastrointestinal: soft, non-tender, no distention, positive bowel sounds Dx/Plan (1) Nausea & vomiting Code(s): R11.2 - NAUSEA WITH VOMITING, UNSPECIFIED Status: Acute (2) UTI (urinary tract infection) Status: Acute (3) Diarrhea Code(s): R19.7 - DIARRHEA, UNSPECIFIED Status: Acute - Plan cx negative but pt's cx at oncology office was positive. -: will continue abx for 7 days. pt's wbc has improved -: pt was suppose to go home but she had a large emesis and pt does -: not feel comfortable going home. electrolytes replaced * . Review of Systems - Review of Systems Respiratory: negative: Cough, Dry, Shortness of Breath, Hemoptysis, SOB with Excertion, Pleuritic Pain, Sputum, Wheezing Cardiovascular: negative: chest pain, palpitations, orthopnea, paroxysmal nocturnal dyspnea, edema, light headedness, other Gastrointestinal: negative: Nausea, Vomiting, Abdominal Pain, Diarrhea, Constipation, Melena, Hematochezia, Other - Medications/Allergies Allergies/Adverse Reactions: Allergies Allergy/AdvReac Type Severity Reaction Status Date / Time ciprofloxacin [From Cipro] Allergy Verified 08/10/18 16:08 duloxetine [From Cymbalta] Allergy Verified 08/10/18 16:08 levofloxacin [From Levaquin] Allergy Verified 08/10/18 16:08 teriparatide [From Forteo] Allergy Verified 08/10/18 16:08 Medications: Current Medications Acetaminophen (Tylenol) 650 mg PO Q6H PRN PRN Reason: Fever or Pain Last Admin: 09/16/18 15:00 Dose: 650 mg Amino Acids/Electrolytes/Dextrose (Clinimix E 4.25/5) 1,000 ml IV INF [facility] Stop: 09/24/18 08:16 Last Admin: 09/16/18 10:03 Dose: 1,000 ml Bupropion HCl (Wellbutrin) 150 mg PO BID [facility] Last Admin: 09/16/18 08:17 Dose: 150 mg Al Hydroxide/Mg Hydroxide 60 ml/ Lidocaine HCl 30 ml/Diphenhydramine HCl 75 mg 0 ml SSW PRN PRN PRN Reason: Mouth Irritation Last Admin: 09/16/18 10:43 Dose: 10 ml Diphenhydramine HCl (Benadryl) 12 mg IVP Q6H PRN PRN Reason: Itching Diphenoxylate HCl/Atropine (Lomotil) 1 tab PO Q4H PRN PRN Reason: Diarrhea/Loose Stools Enoxaparin Sodium (Lovenox) 40 mg SC 0900 [facility] Last Admin: 09/16/18 08:18 Dose: Not Given Sodium Chloride (Normal Saline 0.9%) 1,000 mls @ 100 mls/hr IV .Q10H [facility] Last Admin: 09/16/18 16:33 Dose: 1,000 mls Ceftriaxone Sodium 2 gm/ (Sodium Chloride) 100 mls @ 200 mls/hr IVPB Q24HR [facility] Last Admin: 09/15/18 18:17 Dose: 100 mls Promethazine HCl 25 mg/ Sodium (Chloride) 51 mls @ 153 mls/hr IVPB Q6H PRN PRN Reason: Nausea Last Admin: 09/16/18 13:01 Dose: 51 mls Latanoprost (Xalatan 0.005% Ophth Soln) 1 drop EA EYE HS [facility] Last Admin: 09/15/18 20:19 Dose: 1 drop Lidocaine HCl (Xylocaine 2% Viscous) 15 ml SSW TID [facility] Last Admin: 09/16/18 14:35 Dose: 15 ml Loperamide HCl (Imodium) 2 mg PO Q4H PRN PRN Reason: Diarrhea/Loose Stools Lorazepam (Ativan) 0.5 mg PO Q6HR PRN PRN Reason: Anxiety/Restlessness/Sleep Last Admin: 09/16/18 16:31 Dose: 0.5 mg Morphine Sulfate (Morphine) 2 mg SLOW IVP Q4H PRN PRN Reason: Moderate to Severe Pain (6-10) Last Admin: 09/15/18 11:42 Dose: 2 mg Morphine Sulfate (Ms Contin) 30 mg PO Q12HR [facility] Last Admin: 09/16/18 08:17 Dose: 30 mg Morphine Sulfate (Morphine Ir Tab) 15 mg PO Q4H PRN PRN Reason: Breakthrough Pain Last Admin: 09/16/18 13:03 Dose: 15 mg Ondansetron HCl (Zofran Odt) 4 mg PO Q6H PRN PRN Reason: Nausea/Vomiting Last Admin: 09/11/18 18:10 Dose: 4 mg Ondansetron HCl (Zofran) 8 mg IVP Q6H PRN PRN Reason: Nausea/Vomiting Last Admin: 09/16/18 14:29 Dose: 8 mg Pantoprazole Sodium (Protonix) 40 mg PO DAILY [facility] Last Admin: 09/16/18 08:17 Dose: 40 mg Promethazine HCl (Phenergan) 25 mg IM/IV Q6H PRN PRN Reason: Nausea/Vomiting Senna/Docusate Sodium (Senokot S) 1 tab PO BID [facility] Sodium Chloride (Flush - Normal Saline) 10 ml IVF Q12HR [facility] Last Admin: 09/16/18 08:18 Dose: 10 ml Sodium Chloride (Flush - Normal Saline) 10 ml IVF PRN PRN PRN Reason: Saline Flush Sucralfate (Carafate) 1 gm SSW QID [facility] Last Admin: 09/16/18 16:32 Dose: 1 gm
[2018-09-16] MEDS: cefTRIAXone\\ROCEPHIN 2 GM in Sodium Chloride 0.9% 100 ML IVPB SCH (18:15)
[2018-09-16] MEDS: Latanoprost 0.005% Ophth Soln 2.5 ml Bottle EA EYE SCH (21:09)
[2018-09-16] MEDS: Senokot S 8.6-50 MG TAB PO SCH (21:11)
[2018-09-16] MEDS: Promethazine HCl 25 MG/ML VIAL IM/IV PRN (21:17)
[2018-09-17] MEDS: Promethazine HCl 25 MG/ML VIAL IM/IV PRN ×2 (05:03→12:30)
[2018-09-17] MEDS: Sodium Chloride 0.9% 1,000 ML IV SCH ×3 (05:04→23:39)
[2018-09-17 05:40] LABS: Anion Gap 12 mmol/L (10-20); BUN (Urea Nitrogen) 12 mg/dL (9.8-20.1); Calc. Creatinine Clearance 77 mL/min (70-130); Calcium 8.6 mg/dL (7.8-10.44); Carbon Dioxide 26 mmol/L (23-31); Chloride 103 mmol/L (98-107); Estimated GFR-MDRD Greater than 90; Glucose 142 mg/dL (80-115); Potassium 3.9 mmol/L (3.5-5.1); Sodium 137 mmol/L (136-145)
[2018-09-17] MEDS: Ondansetron PF 4 MG/2 ML Vial IVP PRN ×2 (08:17→15:42)
[2018-09-17] MEDS: Sucralfate 1 GM/10 ML UDCUP SSW SCH ×4 (08:20→20:17)
[2018-09-17] MEDS: Enoxaparin Sodium 40 MG/0.4 ML SYRINGE SC SCH (08:22)
[2018-09-17] MEDS: Morphine ER 30 MG TAB PO SCH ×2 (08:22→22:27)
[2018-09-17] MEDS: Lidocaine Viscous Sol 2% 15 ml UD Cup SSW SCH ×3 (08:24→21:04)
[2018-09-17] MEDS: Lorazepam 0.5 MG TAB PO PRN ×2 (08:55→15:42)
[2018-09-17] MEDS: Senokot S 8.6-50 MG TAB PO SCH ×2 (14:04→20:17)
[2018-09-17] MEDS: buPROPion 75 MG TAB PO SCH ×2 (14:04→20:09)
[2018-09-17] MEDS: D5W-AA 4.25% with LYTES 1,000 ML BAG IV SCH ×2 (14:34→23:40)
[2018-09-17] MEDS: Morphine 2 MG/ML SYRINGE SLOW IVP PRN (15:42)
[2018-09-17] MEDS: Aluminum & Magnesium Hydroxide 60 ML, Lidocaine 2% Viscous Solution 30 ML, diphenhydrAM... SSW PRN (16:22)
[2018-09-17] MEDS: cefTRIAXone\\ROCEPHIN 2 GM in Sodium Chloride 0.9% 100 ML IVPB SCH (17:59)
--- NOTE | 2018-09-17 18:13 | PDOC.PN ---
- Subjective Encounter Start Date: 09/17/18 Encounter Start Time: 18:05 Subjective: f/u for locally advanced pancreatic adenocarcinoma with persistent -: N/V and abd pain. + emesis today per nursing and receiving Zofran, -: Phenergan, Benadryl and Ativan. Last BM 3 days prior. - Objective Resuscitation Status - Order Detail: 09/11/18 18:19 Resuscitation Status Routine Resuscitation Status: FULL: Full Resuscitation MAR Reviewed: Yes Vital Signs & Weight: Vital Signs (12 hours) Temp Pulse Resp BP Pulse Ox 09/17/18 08:04 98.3 F 120 H 18 125/66 95 09/17/18 08:00 95 Weight Admit Weight 110 lb Weight 110 lb 12.8 oz I&O: 09/16/18 09/17/18 09/18/18 06:59 06:59 06:59 Intake Total 2440 4820 Output Total 800 Balance 2440 4820 -800 Result Diagrams: 09/16/18 04:30 09/17/18 05:00 Additional Labs: Microbiology 09/12/18 03:06 Stool C. difficile GDH Antigen & Toxins - Final 09/11/18 21:24 Urine clean catch Urine Culture - Final NO GROWTH AT 36 HOURS Laboratory Tests 09/11/18 09/13/18 09/13/18 18:28 05:26 05:26 WBC 4.4 L 1.7 L Sodium Potassium Phosphorus 1.2 L Magnesium 1.7 09/14/18 09/14/18 09/15/18 08:42 11:05 06:03 WBC 1.6 L Sodium 133 L Potassium 3.3 L Phosphorus 2.2 L Magnesium 1.7 Phys Exam - Physical Examination Constitutional: NAD alert HEENT: PERRLA, sclera anicteric, oral pharynx no lesions Neck: no nodes, no JVD, supple, full ROM Respiratory: no wheezing, no rales, no rhonchi, clear to auscultation bilateral Cardiovascular: RRR, no significant murmur, no rub, gallop mild TTP in mid-epigastric region Gastrointestinal: soft, no distention, positive bowel sounds Musculoskeletal: no edema, pulses present Neurological: normal sensation, moves all 4 limbs Psychiatric: A&O x 3 Skin: normal turgor, cap refill <2 seconds Dx/Plan (1) Pancreatic adenocarcinoma Code(s): C25.9 - MALIGNANT NEOPLASM OF PANCREAS, UNSPECIFIED Status: Acute Comment: Continue supportive mgmt, receiving neoadjuvant chemo as outpt, appreciate med oncology assistance (2) Nausea & vomiting Code(s): R11.2 - NAUSEA WITH VOMITING, UNSPECIFIED Status: Acute Comment: Persistent, continue antiemetics, add Scopolamine patch, IVF's, ADAT (3) Constipation Code(s): K59.00 - CONSTIPATION, UNSPECIFIED Status: Acute Qualifiers: Constipation type: slow transit constipation Qualified Code(s): K59.01 - Slow transit constipation Comment: Stool softeners, Fleets enema (4) Pancytopenia due to chemotherapy Code(s): D61.810 - ANTINEOPLASTIC CHEMOTHERAPY INDUCED PANCYTOPENIA Status: Acute Comment: Secondary to chemotherapy, improved (5) UTI (urinary tract infection) Status: Acute Comment: Ucx negative, receiving Rocephin until 09/18/18 - Plan plan discussed w/ family, continue antibiotics, case management social worker, out of bed/ ambulate, DVT proph w/SCDs Stable currently -: Continue Rocephin another 24h then d/c -: Antiemetics prn -: OOB/ambulate -: Nutritional support with PPN * AM lab: CMP, CBC
[2018-09-17] MEDS ORDERED: Fleet Enema 133 ML BOT PR SCH (18:15)
[2018-09-17] MEDS ORDERED: Scopolamine 1.5 mg/72 hour Patch TD SCH (19:00)
[2018-09-17] MEDS: ONDANSETRON HCL IVPB SCH (20:09)
[2018-09-17] MEDS: SODIUM CHLORIDE 0.9% IVPB SCH (20:09)
[2018-09-17] MEDS: DEXAMETHASONE IVPB SCH (20:09)
[2018-09-17] MEDS: Latanoprost 0.005% Ophth Soln 2.5 ml Bottle EA EYE SCH (20:12)
[2018-09-18] MEDS: DEXAMETHASONE IVPB SCH ×3 (03:21→19:04)
[2018-09-18] MEDS: SODIUM CHLORIDE 0.9% IVPB SCH ×3 (03:21→19:04)
[2018-09-18] MEDS: ONDANSETRON HCL IVPB SCH ×3 (03:21→19:04)
[2018-09-18] MEDS: Morphine 2 MG/ML SYRINGE SLOW IVP PRN ×2 (03:23→11:15)
[2018-09-18] MEDS: Sodium Chloride 0.9% 1,000 ML IV SCH ×3 (03:27→13:21)
[2018-09-18 04:42] LABS: ALT (SGPT) 37 U/L (8-55); AST (SGOT) 35 U/L (5-34); Albumin 3.1 g/dL (3.4-4.8); Alkaline Phosphatase 218 U/L (40-150); Anion Gap 11 mmol/L (10-20); BUN (Urea Nitrogen) 12 mg/dL (9.8-20.1); Bilirubin, Total 0.3 mg/dL (0.2-1.2); Calc. Creatinine Clearance 77 mL/min (70-130); Calcium 8.4 mg/dL (7.8-10.44); Carbon Dioxide 25 mmol/L (23-31); Chloride 104 mmol/L (98-107); Estimated GFR-MDRD Greater than 90; Globulin 2.3 g/dL (2.4-3.5); Glucose 164 mg/dL (80-115); Potassium 4.1 mmol/L (3.5-5.1); Protein, Total 5.4 g/dL (6.0-8.3); Sodium 136 mmol/L (136-145)
[2018-09-18 04:50] LABS: Band 33 % (5-11); Hemoglobin 8.5 g/dL (12.0-16.0); Lymphocytes 7 % (21-51); MDiff Complete? YES; Mean Corpuscular HGB CONC 32.4 g/dL (32.0-36.0); Mean Corpuscular Hemoglobin 25.6 pg (27.0-31.0); Metamyelocyte 1 % (0-0); Monocytes 1 % (0-10); Myelocyte 1 % (0-0); Neutrophil 57 % (42-75); Platelet Count 97 thou/uL (130-400); Platelet Morphology Comment Appears Decreased; RBC Distribution Width 20.2 % (11.5-14.5); Red Blood Cell (RBC) Count 3.31 mill/uL (4.20-5.40); Toxic Granulation SLIGHT; White Blood Cell (WBC) Count 16.6 thou/uL (4.8-10.8)
[2018-09-18] MEDS: Aluminum & Magnesium Hydroxide 60 ML, Lidocaine 2% Viscous Solution 30 ML, diphenhydrAM... SSW PRN ×3 (06:40→20:16)
[2018-09-18] MEDS: Promethazine HCl 25 MG in Sodium Chloride 0.9% 50 ML IVPB PRN ×2 (06:40→20:09)
[2018-09-18] MEDS: buPROPion 75 MG TAB PO SCH ×2 (08:18→20:13)
[2018-09-18] MEDS: Senokot S 8.6-50 MG TAB PO SCH ×2 (08:18→20:12)
[2018-09-18] MEDS: Enoxaparin Sodium 40 MG/0.4 ML SYRINGE SC SCH (08:19)
[2018-09-18] MEDS: Sucralfate 1 GM/10 ML UDCUP SSW SCH ×4 (08:20→20:13)
[2018-09-18] MEDS: Morphine ER 30 MG TAB PO SCH (08:21)
[2018-09-18] MEDS: Lidocaine Viscous Sol 2% 15 ml UD Cup SSW SCH ×3 (08:22→20:15)
[2018-09-18] MEDS: D5W-AA 4.25% with LYTES 1,000 ML BAG IV SCH (13:22)
[2018-09-18] MEDS ORDERED: HYDROcodone/Acetaminophen 5/325 mg Tablet PO PRN ×2 (15:53)
[2018-09-18] MEDS: cefTRIAXone\\ROCEPHIN 2 GM in Sodium Chloride 0.9% 100 ML IVPB SCH (17:12)
--- NOTE | 2018-09-18 19:10 | PDOC.PN ---
- Subjective Encounter Start Date: 09/18/18 Encounter Start Time: 07:40 Pt seen for followup re: nausea and vomiting. Feels slightly better. - Objective Resuscitation Status - Order Detail: 09/11/18 18:19 Resuscitation Status Routine Resuscitation Status: FULL: Full Resuscitation Vital Signs & Weight: Vital Signs (12 hours) Temp Pulse Resp BP Pulse Ox 09/18/18 11:30 103 H 09/18/18 08:11 97.8 F 105 H 16 146/76 H 98 09/18/18 08:00 98 Weight Admit Weight 110 lb Weight 110 lb 12.8 oz I&O: 09/17/18 09/18/18 09/19/18 06:59 06:59 06:59 Intake Total 4820 2640 3310 Output Total 800 Balance 4820 1840 3310 Result Diagrams: 09/18/18 04:09 09/18/18 04:09 Phys Exam - Physical Examination Constitutional: NAD HEENT: moist MMs Neck: supple Respiratory: clear to auscultation bilateral S1, S2, reg, tachy Gastrointestinal: soft Neurological: moves all 4 limbs Psychiatric: normal affect Dx/Plan (1) Nausea & vomiting Code(s): R11.2 - NAUSEA WITH VOMITING, UNSPECIFIED Status: Acute Comment: Persistent, continue antiemetics, Scopolamine patch, IVF's (2) Pancreatic adenocarcinoma Code(s): C25.9 - MALIGNANT NEOPLASM OF PANCREAS, UNSPECIFIED Status: Acute Comment: oncology service following - Plan * . Review of Systems - Review of Systems Cardiovascular: negative: chest pain, palpitations, orthopnea, paroxysmal nocturnal dyspnea, edema, light headedness Gastrointestinal: Nausea, Vomiting. negative: Abdominal Pain, Diarrhea, Constipation, Melena, Hematochezia - Medications/Allergies Allergies/Adverse Reactions: Allergies Allergy/AdvReac Type Severity Reaction Status Date / Time ciprofloxacin [From Cipro] Allergy Verified 08/10/18 16:08 duloxetine [From Cymbalta] Allergy Verified 08/10/18 16:08 levofloxacin [From Levaquin] Allergy Verified 08/10/18 16:08 teriparatide [From Forteo] Allergy Verified 08/10/18 16:08 Medications: Current Medications Acetaminophen (Tylenol) 650 mg PO Q6H PRN PRN Reason: Fever or Pain Last Admin: 09/16/18 15:00 Dose: 650 mg Hydrocodone Bitart/Acetaminophen (Viper 5/325) 1 tab PO Q4H PRN PRN Reason: Breakthrough Pain Hydrocodone Bitart/Acetaminophen (Viper 5/325) 2 tab PO Q4H PRN PRN Reason: Breakthrough Pain Amino Acids/Electrolytes/Dextrose (Clinimix E 4.25/5) 1,000 ml IV INF [facility] Stop: 09/24/18 08:16 Last Admin: 09/18/18 13:22 Dose: 1,000 ml Bupropion HCl (Wellbutrin) 150 mg PO BID [facility] Last Admin: 09/18/18 08:18 Dose: 150 mg Al Hydroxide/Mg Hydroxide 60 ml/ Lidocaine HCl 30 ml/Diphenhydramine HCl 75 mg 0 ml SSW PRN PRN PRN Reason: Mouth Irritation Last Admin: 09/18/18 17:01 Dose: 10 ml Diphenhydramine HCl (Benadryl) 12 mg IVP Q6H PRN PRN Reason: Itching Last Admin: 09/17/18 14:30 Dose: 12 mg Diphenoxylate HCl/Atropine (Lomotil) 1 tab PO Q4H PRN PRN Reason: Diarrhea/Loose Stools Enoxaparin Sodium (Lovenox) 40 mg SC 0900 [facility] Last Admin: 09/18/18 08:19 Dose: Not Given Fentanyl (Duragesic) 25 mcg TD Q3D [facility] Last Admin: 09/18/18 17:03 Dose: 25 mcg Sodium Chloride (Normal Saline 0.9%) 1,000 mls @ 100 mls/hr IV .Q10H [facility] Last Admin: 09/18/18 13:21 Dose: 1,000 mls Ceftriaxone Sodium 2 gm/ (Sodium Chloride) 100 mls @ 200 mls/hr IVPB Q24HR [facility] Last Admin: 09/18/18 17:12 Dose: 100 mls Promethazine HCl 25 mg/ Sodium (Chloride) 51 mls @ 153 mls/hr IVPB Q6H PRN PRN Reason: Nausea Last Admin: 09/18/18 06:40 Dose: 51 mls Ondansetron HCl 12 mg/Dexamethasone 10 mg/ Sodium Chloride 57 mls @ 114 mls/hr IVPB Q8H [facility] Last Admin: 09/18/18 19:04 Dose: 57 mls Latanoprost (Xalatan 0.005% Ophth Soln) 1 drop EA EYE HS [facility] Last Admin: 09/17/18 20:12 Dose: 1 drop Lidocaine HCl (Xylocaine 2% Viscous) 15 ml SSW TID [facility] Last Admin: 09/18/18 14:57 Dose: 15 ml Loperamide HCl (Imodium) 2 mg PO Q4H PRN PRN Reason: Diarrhea/Loose Stools Lorazepam (Ativan) 1 mg PO Q4H PRN PRN Reason: Anxiety/Restlessness/Sleep Morphine Sulfate (Morphine) 2 mg SLOW IVP Q4H PRN PRN Reason: Moderate to Severe Pain (6-10) Last Admin: 09/18/18 11:15 Dose: 2 mg Pantoprazole Sodium (Protonix) 40 mg PO DAILY [facility] Last Admin: 09/18/18 08:18 Dose: 40 mg Promethazine HCl (Phenergan) 25 mg IM/IV Q6H PRN PRN Reason: Nausea/Vomiting Last Admin: 09/17/18 12:30 Dose: 25 mg Scopolamine (Transderm Scop) 1.5 mg TD Q3D [facility] Last Admin: 09/17/18 19:50 Dose: 1.5 mg Senna/Docusate Sodium (Senokot S) 1 tab PO BID [facility] Last Admin: 09/18/18 08:18 Dose: 1 tab Sodium Chloride (Flush - Normal Saline) 10 ml IVF Q12HR [facility] Last Admin: 09/18/18 08:20 Dose: 10 ml Sodium Chloride (Flush - Normal Saline) 10 ml IVF PRN PRN PRN Reason: Saline Flush Sucralfate (Carafate) 1 gm SSW QID [facility] Last Admin: 09/18/18 17:02 Dose: 1 gm
[2018-09-18] MEDS: Latanoprost 0.005% Ophth Soln 2.5 ml Bottle EA EYE SCH (20:16)
[2018-09-19] MEDS: D5W-AA 4.25% with LYTES 1,000 ML BAG IV SCH ×2 (00:46→14:15)
[2018-09-19] MEDS: Lorazepam 1 MG TAB PO PRN ×2 (01:04→21:03)
[2018-09-19] MEDS: ONDANSETRON HCL IVPB SCH ×3 (03:55→20:56)
[2018-09-19] MEDS: DEXAMETHASONE IVPB SCH ×3 (03:55→20:56)
[2018-09-19] MEDS: SODIUM CHLORIDE 0.9% IVPB SCH ×3 (03:55→20:56)
[2018-09-19 08:19] LABS: Hemoglobin 8.9 g/dL (12.0-16.0); Mean Corpuscular HGB CONC 33.7 g/dL (32.0-36.0); Mean Corpuscular Hemoglobin 26.6 pg (27.0-31.0); Mean Corpuscular Volume 78.8 fL (78.0-98.0); Mean Platelet Volume 11.1 fL (7.4-10.4); Platelet Count 176 thou/uL (130-400); RBC Distribution Width 21.5 % (11.5-14.5); Red Blood Cell (RBC) Count 3.35 mill/uL (4.20-5.40)
[2018-09-19 08:35] LABS: Anion Gap 16 mmol/L (10-20); BUN (Urea Nitrogen) 16 mg/dL (9.8-20.1); Calc. Creatinine Clearance 71 mL/min (70-130); Calcium 8.8 mg/dL (7.8-10.44); Carbon Dioxide 22 mmol/L (23-31); Chloride 100 mmol/L (98-107); Estimated GFR-MDRD Greater than 90; Glucose 162 mg/dL (80-115); Potassium 4.8 mmol/L (3.5-5.1); Sodium 133 mmol/L (136-145)
[2018-09-19] MEDS: Lidocaine Viscous Sol 2% 15 ml UD Cup SSW SCH ×3 (09:14→20:58)
[2018-09-19] MEDS: Sucralfate 1 GM/10 ML UDCUP SSW SCH ×4 (09:14→20:57)
[2018-09-19] MEDS: buPROPion 75 MG TAB PO SCH ×2 (09:15→20:57)
[2018-09-19] MEDS: Enoxaparin Sodium 40 MG/0.4 ML SYRINGE SC SCH (09:15)
[2018-09-19] MEDS: Senokot S 8.6-50 MG TAB PO SCH ×2 (09:15→20:58)
[2018-09-19 10:26] LABS: Band 34 % (5-11); Bite Cells SLIGHT = 2-5 cells (100X) (0-1/hpf); Eosinophils 1 % (0-10); Lymphocytes 9 % (21-51); MDiff Complete? YES; Metamyelocyte 1 % (0-0); Microcytosis SLIGHT = 6-15 cells (100X) (0-5/hpf); Monocytes 3 % (0-10); Myelocyte 2 % (0-0); Neutrophil 49 % (42-75); Platelet Morphology Comment Appears Adequate; Polychromasia SLIGHT = 2-3 cells (100X) (0-2/hpf); Reactive Lymphocytes 1 % (0-10); Toxic Granulation SLIGHT; Vacuoles SLIGHT
[2018-09-19] MEDS: Sodium Chloride 0.9% 1,000 ML IV SCH ×2 (11:40→21:08)
[2018-09-19] MEDS: Aluminum & Magnesium Hydroxide 60 ML, Lidocaine 2% Viscous Solution 30 ML, diphenhydrAM... SSW PRN ×2 (12:46→20:58)
[2018-09-19] MEDS: Promethazine HCl 25 MG/ML VIAL IM/IV PRN (14:19)
--- NOTE | 2018-09-19 17:07 | PDOC.PN ---
- Subjective Encounter Start Date: 09/19/18 Encounter Start Time: 07:00 Pt seen for followup re: nausea and vomiting. Feels better. No fevers or chills. - Objective Resuscitation Status - Order Detail: 09/11/18 18:19 Resuscitation Status Routine Resuscitation Status: FULL: Full Resuscitation Vital Signs & Weight: Vital Signs (12 hours) Temp Pulse Resp BP Pulse Ox 09/19/18 08:00 100 09/19/18 07:59 98.4 F 94 16 147/70 H 100 Weight Admit Weight 110 lb Weight 110 lb 12.8 oz I&O: 09/18/18 09/19/18 09/20/18 06:59 06:59 06:59 Intake Total 2640 3310 500 Output Total 800 Balance 1840 3310 500 Result Diagrams: 09/19/18 08:00 09/19/18 08:00 Phys Exam - Physical Examination Constitutional: NAD HEENT: moist MMs Neck: supple Respiratory: no rales Cardiovascular: RRR Gastrointestinal: non-tender, positive bowel sounds Neurological: moves all 4 limbs Psychiatric: normal affect Dx/Plan (1) Nausea & vomiting Code(s): R11.2 - NAUSEA WITH VOMITING, UNSPECIFIED Status: Acute Comment: Improved, continue antiemetics. Pt also started on fentanyl patch for pain. (2) Pancreatic adenocarcinoma Code(s): C25.9 - MALIGNANT NEOPLASM OF PANCREAS, UNSPECIFIED Status: Acute Comment: oncology service following, appreciate input. - Plan * . Plan is for patient to go home with steroids, fentanyl patch and nausea medications. Review of Systems - Review of Systems Gastrointestinal: Nausea. negative: Vomiting, Abdominal Pain, Diarrhea, Constipation, Melena, Hematochezia Genitourinary: negative: Dysuria, Frequency, Incontinence, Hematuria, Retention - Medications/Allergies Allergies/Adverse Reactions: Allergies Allergy/AdvReac Type Severity Reaction Status Date / Time ciprofloxacin [From Cipro] Allergy Verified 08/10/18 16:08 duloxetine [From Cymbalta] Allergy Verified 08/10/18 16:08 levofloxacin [From Levaquin] Allergy Verified 08/10/18 16:08 teriparatide [From Forteo] Allergy Verified 08/10/18 16:08 Medications: Current Medications Acetaminophen (Tylenol) 650 mg PO Q6H PRN PRN Reason: Fever or Pain Last Admin: 09/16/18 15:00 Dose: 650 mg Hydrocodone Bitart/Acetaminophen ([place] 5/325) 1 tab PO Q4H PRN PRN Reason: Breakthrough Pain Hydrocodone Bitart/Acetaminophen (Falls 5/325) 2 tab PO Q4H PRN PRN Reason: Breakthrough Pain Last Admin: 09/18/18 20:10 Dose: 2 tab Amino Acids/Electrolytes/Dextrose (Clinimix E 4.25/5) 1,000 ml IV INF [facility] Stop: 09/24/18 08:16 Last Admin: 09/19/18 14:15 Dose: 1,000 ml Bupropion HCl (Wellbutrin) 150 mg PO BID [facility] Last Admin: 09/19/18 09:15 Dose: 150 mg Al Hydroxide/Mg Hydroxide 60 ml/ Lidocaine HCl 30 ml/Diphenhydramine HCl 75 mg 0 ml SSW PRN PRN PRN Reason: Mouth Irritation Last Admin: 09/19/18 12:46 Dose: 10 ml Diphenhydramine HCl (Benadryl) 12 mg IVP Q6H PRN PRN Reason: Itching Last Admin: 09/17/18 14:30 Dose: 12 mg Diphenoxylate HCl/Atropine (Lomotil) 1 tab PO Q4H PRN PRN Reason: Diarrhea/Loose Stools Enoxaparin Sodium (Lovenox) 40 mg SC 0900 [facility] Last Admin: 09/19/18 09:15 Dose: 40 mg Fentanyl (Duragesic) 25 mcg TD Q3D [facility] Last Admin: 09/18/18 17:03 Dose: 25 mcg Sodium Chloride (Normal Saline 0.9%) 1,000 mls @ 100 mls/hr IV .Q10H [facility] Last Admin: 09/19/18 11:40 Dose: 1,000 mls Ceftriaxone Sodium 2 gm/ (Sodium Chloride) 100 mls @ 200 mls/hr IVPB Q24HR [facility] Last Admin: 09/18/18 17:12 Dose: 100 mls Promethazine HCl 25 mg/ Sodium (Chloride) 51 mls @ 153 mls/hr IVPB Q6H PRN PRN Reason: Nausea Last Admin: 09/18/18 20:09 Dose: 51 mls Ondansetron HCl 12 mg/Dexamethasone 10 mg/ Sodium Chloride 57 mls @ 114 mls/hr IVPB Q8H [facility] Last Admin: 09/19/18 11:40 Dose: 57 mls Latanoprost (Xalatan 0.005% Ophth Soln) 1 drop EA EYE HS [facility] Last Admin: 09/18/18 20:16 Dose: 1 drop Lidocaine HCl (Xylocaine 2% Viscous) 15 ml SSW TID [facility] Last Admin: 09/19/18 14:15 Dose: 15 ml Loperamide HCl (Imodium) 2 mg PO Q4H PRN PRN Reason: Diarrhea/Loose Stools Lorazepam (Ativan) 1 mg PO Q4H PRN PRN Reason: Anxiety/Restlessness/Sleep Last Admin: 09/19/18 01:04 Dose: 1 mg Morphine Sulfate (Morphine) 2 mg SLOW IVP Q4H PRN PRN Reason: Moderate to Severe Pain (6-10) Last Admin: 09/18/18 11:15 Dose: 2 mg Pantoprazole Sodium (Protonix) 40 mg PO DAILY [facility] Last Admin: 09/19/18 09:15 Dose: 40 mg Promethazine HCl (Phenergan) 25 mg IM/IV Q6H PRN PRN Reason: Nausea/Vomiting Last Admin: 09/19/18 14:19 Dose: 25 mg Scopolamine (Transderm Scop) 1.5 mg TD Q3D [facility] Last Admin: 09/17/18 19:50 Dose: 1.5 mg Senna/Docusate Sodium (Senokot S) 1 tab PO BID [facility] Last Admin: 09/19/18 09:15 Dose: 1 tab Sodium Chloride (Flush - Normal Saline) 10 ml IVF Q12HR [facility] Last Admin: 09/19/18 09:15 Dose: 10 ml Sodium Chloride (Flush - Normal Saline) 10 ml IVF PRN PRN PRN Reason: Saline Flush Sucralfate (Carafate) 1 gm SSW QID [facility] Last Admin: 09/19/18 11:49 Dose: 1 gm
[2018-09-19] MEDS: cefTRIAXone\\ROCEPHIN 2 GM in Sodium Chloride 0.9% 100 ML IVPB SCH (17:22)
[2018-09-19] MEDS: Morphine 2 MG/ML SYRINGE SLOW IVP PRN (20:54)
[2018-09-19] MEDS: Latanoprost 0.005% Ophth Soln 2.5 ml Bottle EA EYE SCH (20:58)
[2018-09-20] MEDS: D5W-AA 4.25% with LYTES 1,000 ML BAG IV SCH (02:51)
[2018-09-20] MEDS: SODIUM CHLORIDE 0.9% IVPB SCH ×2 (04:00→11:43)
[2018-09-20] MEDS: ONDANSETRON HCL IVPB SCH ×2 (04:00→11:43)
[2018-09-20] MEDS: DEXAMETHASONE IVPB SCH ×2 (04:00→11:43)
[2018-09-20] MEDS: Promethazine HCl 25 MG in Sodium Chloride 0.9% 50 ML IVPB PRN (06:08)
[2018-09-20] MEDS: buPROPion 75 MG TAB PO SCH (08:39)
[2018-09-20] MEDS: Enoxaparin Sodium 40 MG/0.4 ML SYRINGE SC SCH (08:39)
[2018-09-20] MEDS: Lidocaine Viscous Sol 2% 15 ml UD Cup SSW SCH ×2 (08:40→08:42)
[2018-09-20] MEDS: Senokot S 8.6-50 MG TAB PO SCH (08:40)
[2018-09-20] MEDS: Sucralfate 1 GM/10 ML UDCUP SSW SCH (08:41)
[2018-09-20] MEDS: Sodium Chloride 0.9% 1,000 ML IV SCH (09:00)
[2018-09-20 09:15] VITALS: BP 162/82; TEMP 98.7
--- NOTE | 2018-09-20 12:25 | PDOC.PN ---
- Subjective Encounter Start Date: 09/20/18 Encounter Start Time: 10:00 Subjective: nausea and abd pain is better -: ate her breakfast this am -: is ready to go home - Objective Resuscitation Status - Order Detail: 09/11/18 18:19 Resuscitation Status Routine Resuscitation Status: FULL: Full Resuscitation MAR Reviewed: Yes Vital Signs & Weight: Vital Signs (12 hours) Temp Pulse Resp BP Pulse Ox 09/20/18 08:05 98.7 F 94 18 162/82 H 98 09/20/18 08:00 98 Weight Admit Weight 110 lb Weight 110 lb 12.8 oz I&O: 09/19/18 09/20/18 09/21/18 06:59 06:59 06:59 Intake Total 3310 3910 Balance 3310 3910 Result Diagrams: 09/19/18 08:00 09/19/18 08:00 Phys Exam - Physical Examination HEENT: PERRLA, moist MMs still has lip/tongue and buccal ulcers Neck: no JVD, supple Respiratory: no wheezing, no rales Cardiovascular: RRR, no significant murmur Gastrointestinal: soft, non-tender, no distention, positive bowel sounds Musculoskeletal: pulses present, edema present Neurological: non-focal, moves all 4 limbs Psychiatric: normal affect, A&O x 3 Dx/Plan (1) Nausea & vomiting Code(s): R11.2 - NAUSEA WITH VOMITING, UNSPECIFIED Status: Acute (2) Pancreatic adenocarcinoma Code(s): C25.9 - MALIGNANT NEOPLASM OF PANCREAS, UNSPECIFIED Status: Acute Comment: on FOLFIRINOX (3) UTI (urinary tract infection) Status: Acute Qualifiers: Urinary tract infection type: acute cystitis Hematuria presence: without hematuria Qualified Code(s): N30.00 - Acute cystitis without hematuria Comment: Ucx negative, receiving Rocephin until 09/18/18 (4) Obstructive jaundice Code(s): K83.8 - OTHER SPECIFIED DISEASES OF BILIARY TRACT Status: Chronic Comment: stable and resolving (5) Hepatitis C Code(s): B19.20 - UNSPECIFIED VIRAL HEPATITIS C WITHOUT HEPATIC COMA Status: Chronic Qualifiers: Viral hepatitis chronicity: chronic Hepatic coma status: without hepatic coma Qualified Code(s): B18.2 - Chronic viral hepatitis C (6) Depression Code(s): F32.9 - MAJOR DEPRESSIVE DISORDER, SINGLE EPISODE, UNSPECIFIED Status : Chronic Qualifiers: Depression Type: major depressive disorder Major depression episode severity: mild (7) Pancytopenia due to chemotherapy Code(s): D61.810 - ANTINEOPLASTIC CHEMOTHERAPY INDUCED PANCYTOPENIA Status: Acute Comment: Secondary to chemotherapy, improved - Plan hemostable -: may dc home per onc adv -: will be on steroid taper, mild fentanyl tts -: is tolerating oral diet -: dc ppn, continue home meds, no antibiotics on dc * . Review of Systems - Medications/Allergies Allergies/Adverse Reactions: Allergies Allergy/AdvReac Type Severity Reaction Status Date / Time ciprofloxacin [From Cipro] Allergy Verified 08/10/18 16:08 duloxetine [From Cymbalta] Allergy Verified 08/10/18 16:08 levofloxacin [From Levaquin] Allergy Verified 08/10/18 16:08 teriparatide [From Forteo] Allergy Verified 08/10/18 16:08 Medications: Current Medications Acetaminophen (Tylenol) 650 mg PO Q6H PRN PRN Reason: Fever or Pain Last Admin: 09/16/18 15:00 Dose: 650 mg Hydrocodone Bitart/Acetaminophen ([place] 5/325) 1 tab PO Q4H PRN PRN Reason: Breakthrough Pain Last Admin: 09/20/18 02:51 Dose: 1 tab Hydrocodone Bitart/Acetaminophen ([place]ra 5/325) 2 tab PO Q4H PRN PRN Reason: Breakthrough Pain Last Admin: 09/18/18 20:10 Dose: 2 tab Amino Acids/Electrolytes/Dextrose (Clinimix E 4.25/5) 1,000 ml IV INF [facility] Stop: 09/24/18 08:16 Last Admin: 09/20/18 02:51 Dose: 1,000 ml Bupropion HCl (Wellbutrin) 150 mg PO BID [facility] Last Admin: 09/20/18 08:39 Dose: 150 mg Al Hydroxide/Mg Hydroxide 60 ml/ Lidocaine HCl 30 ml/Diphenhydramine HCl 75 mg 0 ml SSW PRN PRN PRN Reason: Mouth Irritation Last Admin: 09/19/18 20:58 Dose: 120 ml Diphenhydramine HCl (Benadryl) 12 mg IVP Q6H PRN PRN Reason: Itching Last Admin: 09/17/18 14:30 Dose: 12 mg Diphenoxylate HCl/Atropine (Lomotil) 1 tab PO Q4H PRN PRN Reason: Diarrhea/Loose Stools Enoxaparin Sodium (Lovenox) 40 mg SC 0900 [facility] Last Admin: 09/20/18 08:39 Dose: 40 mg Fentanyl (Duragesic) 25 mcg TD Q3D [facility] Last Admin: 09/18/18 17:03 Dose: 25 mcg Sodium Chloride (Normal Saline 0.9%) 1,000 mls @ 100 mls/hr IV .Q10H [facility] Last Admin: 09/20/18 09:00 Dose: Not Given Ceftriaxone Sodium 2 gm/ (Sodium Chloride) 100 mls @ 200 mls/hr IVPB Q24HR [facility] Last Admin: 09/19/18 17:22 Dose: 100 mls Promethazine HCl 25 mg/ Sodium (Chloride) 51 mls @ 153 mls/hr IVPB Q6H PRN PRN Reason: Nausea Last Admin: 09/20/18 06:08 Dose: 51 mls Ondansetron HCl 12 mg/Dexamethasone 10 mg/ Sodium Chloride 57 mls @ 114 mls/hr IVPB Q8H [facility] Last Admin: 09/20/18 11:43 Dose: 57 mls Latanoprost (Xalatan 0.005% Ophth Soln) 1 drop EA EYE HS [facility] Last Admin: 09/19/18 20:58 Dose: 1 drop Lidocaine HCl (Xylocaine 2% Viscous) 15 ml SSW TID [facility] Last Admin: 09/20/18 08:42 Dose: Not Given Loperamide HCl (Imodium) 2 mg PO Q4H PRN PRN Reason: Diarrhea/Loose Stools Lorazepam (Ativan) 1 mg PO Q4H PRN PRN Reason: Anxiety/Restlessness/Sleep Last Admin: 09/19/18 21:03 Dose: 1 mg Morphine Sulfate (Morphine) 2 mg SLOW IVP Q4H PRN PRN Reason: Moderate to Severe Pain (6-10) Last Admin: 09/19/18 20:54 Dose: 2 mg Pantoprazole Sodium (Protonix) 40 mg PO DAILY [facility] Last Admin: 09/20/18 08:40 Dose: 40 mg Promethazine HCl (Phenergan) 25 mg IM/IV Q6H PRN PRN Reason: Nausea/Vomiting Last Admin: 09/19/18 14:19 Dose: 25 mg Scopolamine (Transderm Scop) 1.5 mg TD Q3D [facility] Last Admin: 09/17/18 19:50 Dose: 1.5 mg Senna/Docusate Sodium (Senokot S) 1 tab PO BID [facility] Last Admin: 09/20/18 08:40 Dose: 1 tab Sodium Chloride (Flush - Normal Saline) 10 ml IVF Q12HR [facility] Last Admin: 09/20/18 08:40 Dose: Not Given Sodium Chloride (Flush - Normal Saline) 10 ml IVF PRN PRN PRN Reason: Saline Flush Sucralfate (Carafate) 1 gm SSW QID [facility] Last Admin: 09/20/18 08:41 Dose: 1 gm
[2018-09-20] MEDS: Morphine 2 MG/ML SYRINGE SLOW IVP PRN (12:28)
--- NOTE | 2018-09-21 15:27 | DIS ---
DATE OF ADMISSION: 09/11/2018 DATE OF DISCHARGE: 09/20/2018 DISCHARGE DISPOSITION: Home. PRIMARY DISCHARGE DIAGNOSES: 1. Severe mucositis with recent chemotherapy for pancreatic adenocarcinoma. 2. Severe intractable nausea, vomiting due to chemotherapy. 3. Pancytopenia due to chemotherapy, resolving. 4. Chronic hepatitis C. 5. Urinary tract infection. 6. Depression. PROCEDURES DONE DURING HOSPITALIZATION: The patient had a CT of the abdomen and pelvis with IV contrast done on the day of admission, which showed stable appearing pancreatic mass, which appears to be involving the superior mesenteric artery with nonvisualization of the superior mesenteric vein, but with intact splenic vein and portal vein. Abnormal enhancement and wall thickening of the colon. Evidence for nonspecific colitis, but no significant pericolonic abnormal fat stranding or fluid collection was seen. Internal biliary drainage catheter was noted. Urine culture, no growth. Stool for C diff was negative. White count was 1.7 on the with H and H of 8 and 26, platelet count was 118. Discharge white count of 26, elevated due to steroids; H and H of 9 and 26; platelet count 176. Discharge BUN and creatinine 16 and 0.6, serum bicarb 22, AST 35, ALT 37, alkaline phosphatase 218. CA-19-9 antigen was 1482. Albumin 3.1. INPATIENT [facility] BOSS: Dr. Fernandez for Oncology. DISCHARGE MEDICATIONS: 1. Bupropion 150 mg twice daily. 2. Lunesta 3 mg p.o. at bedtime p.r.n. for insomnia. 3. [place] p.r.n. for pain. 4. Latanoprost eye drops at bedtime. 5. Lorazepam 0.5 mg p.o. q.6 hourly p.r.n. 6. Fentanyl transdermal patch 25 mcg q.72 hourly. 7. Protonix 40 mg p.o. daily. ALLERGIES: CIPROFLOXACIN, DULOXETINE, LEVAQUIN, AND TERIPARATIDE. DISCHARGE PLAN: The patient to follow up with Dr. Fernandez as advised and primary care physician in 1 week. BRIEF COURSE DURING HOSPITALIZATION: The patient initially got admitted on the with complaints of severe nausea, vomiting, and diarrhea for the last 2 days. She has been receiving chemotherapy for pancreatic cancer. Ms. Nunes also had severe mucositis due to chemotherapy. She was pancytopenic as well. The patient had a urine culture drawn on the 31st, which was resistant to ampicillin and Bactrim, but sensitive to all other antibiotics. A repeat culture done during this hospitalization showed no growth in her urine. The patient was on ceftriaxone all through her stay here, which has been discontinued at the time of discharge. Ms. Nunes was also on PPN initially and was slowly initiated on oral diet. Prior to discharge, she is tolerating solid diet. She still has mucositis on the lips and tongue and inner cheeks. This is slowly resolving. Her pancytopenia has resolved. She is on a fentanyl patch and steroids as well per Oncology direction. She is hemodynamically stable and will be shortly discharged home. She has been cleared by Oncology for discharge. Job ID: [id number]
== END 2018-09-20 12:58 | disposition home or self-care (01) | DRG 393 ==
LOC: ONC 16:09
PROVIDERS: ADMIT Internal Medicine; ATTEND Internal Medicine
DX: K52.1 Toxic gastroenteritis and colitis (principal); D61.810 Antineoplastic chemotherapy induced pancytopenia; C25.9 Malignant neoplasm of pancreas, unspecified; N39.0 Urinary tract infection, site not specified; E44.0 Moderate protein-calorie malnutrition; T45.1X5A Adverse effect of antineoplastic and immunosuppressive drugs, initial encounter; K21.9 Gastro-esophageal reflux disease without esophagitis; F32.9 Major depressive disorder, single episode, unspecified; M79.7 Fibromyalgia; B96.20 Unspecified Escherichia coli [E. coli] as the cause of diseases classified elsewhere; K83.8 Other specified diseases of biliary tract; B19.20 Unspecified viral hepatitis C without hepatic coma; Z90.710 Acquired absence of both cervix and uterus; Z90.49 Acquired absence of other specified parts of digestive tract; Z88.6 Allergy status to analgesic agent; Z79.899 Other long term (current) drug therapy; Z87.891 Personal history of nicotine dependence; Z68.20 Body mass index [BMI] 20.0-20.9, adult
CPT/HCPCS: 36415; 74177; 80048; 80053; 80076; 81001; 83735; 84100; 85025; 85027; 86301; 87077; 87086; 87186; 87324; 87449; 96361; 96374; 96375; 96376; J0696; J1100; J1200; J1450; J1642; J1650; J2270; J2405; J2550; J3010; J3480; J3490; J7050; Q0162; Q0163; Q9967; S0028

== ENCOUNTER 2018-09-24 20:01 | Inpatient (IN) | payer BC ==
[2018-09-24] MEDS ORDERED: Ondansetron PF 4 MG/2 ML Vial ONE (20:50)
[2018-09-24] MEDS ORDERED: Acetaminophen 500 MG TAB ONE (20:50)
--- NOTE | 2018-09-24 20:51 | RAD ---
PORTABLE CHEST: HISTORY: Sepsis. FINDINGS: The lung myles are clear. The heart and mediastinum appear normal. A Mediport catheter appears eileen quately positioned. IMPRESSION: Negative chest. POS: [facility]
[2018-09-24 20:54] LABS: ALT (SGPT) 474 U/L (8-55); AST (SGOT) 552 U/L (5-34); Albumin 3.8 g/dL (3.4-4.8); Alkaline Phosphatase 806 U/L (40-150); Anion Gap 17 mmol/L (10-20); BUN (Urea Nitrogen) 13 mg/dL (9.8-20.1); Bilirubin, Total 3.6 mg/dL (0.2-1.2); Calc. Creatinine Clearance 0 mL/min (70-130); Calcium 9.2 mg/dL (7.8-10.44); Carbon Dioxide 22 mmol/L (23-31); Chloride 94 mmol/L (98-107); Estimated GFR-MDRD 69; Glucose 124 mg/dL (80-115); Potassium 3.5 mmol/L (3.5-5.1); Protein, Total 6.8 g/dL (6.0-8.3); Sodium 129 mmol/L (136-145)
[2018-09-24 20:55] LABS: Band 9 % (5-11); Hemoglobin 10.5 g/dL (12.0-16.0); Lymphocytes 7 % (21-51); MDiff Complete? YES; Mean Corpuscular HGB CONC 31.5 g/dL (32.0-36.0); Mean Corpuscular Hemoglobin 25.4 pg (27.0-31.0); Mean Corpuscular Volume 80.6 fL (78.0-98.0); Mean Platelet Volume 9.4 fL (7.4-10.4); Monocytes 8 % (0-10); Neutrophil 76 % (42-75); Platelet Count 434 thou/uL (130-400); Platelet Morphology Comment Appears Increased; RBC Distribution Width 21.4 % (11.5-14.5); Red Blood Cell (RBC) Count 4.13 mill/uL (4.20-5.40); White Blood Cell (WBC) Count 21.7 thou/uL (4.8-10.8)
[2018-09-24 22:18] LABS: Bacteria/HPF None Seen HPF (None Seen); Bilirubin Moderate (Negative); Blood, Urine Negative (Negative); Clarity CLEAR (Clear); Glucose, Urine (Dipstick) Negative (Negative); Hyaline Casts/LPF 7-10 HYALINE CAST LPF (0-3 Hyaline); Leukocyte Negative (Negative); Nitrite Negative (Negative); Pathc Cast-AUWi Flag 0.95 (0-2.49); Protein, Urine (Dipstick) 30 mg/dL (Neg-Trace); Squamous Epithelial 0-3 HPF (0-3); pH, Urine 6.5 (5.0-9.0)
[2018-09-24 22:30] LABS: RBC/HPF 0-3 HPF (0-3)
[2018-09-24 22:31] LABS: Crystals/HPF 2+ CA OXALATE HPF (Negative)
[2018-09-24 22:32] LABS: Renal Epithelial 0-3 HPF (0-3)
[2018-09-25] MEDS ORDERED: Cefepime 2 GM VIAL ONE (00:54)
[2018-09-25] MEDS ORDERED: Ondansetron PF 4 MG/2 ML Vial IVP PRN (02:17)
[2018-09-25] MEDS ORDERED: Ondansetron ODT 4 MG TAB SL PRN (02:17)
[2018-09-25 02:21] VITALS: BMI 21.0
[2018-09-25 02:53] LABS: Lactic Acid 0.7 mmol/L (0.5-2.2)
[2018-09-25] MEDS ORDERED: Sodium Chloride 0.9% 1,000 ML IV SCH (04:30)
[2018-09-25] MEDS ORDERED: Promethazine 25 MG TAB PO PRN (06:23)
[2018-09-25] MEDS ORDERED: Ondansetron ODT 4 MG TAB PO PRN (06:23)
[2018-09-25] MEDS ORDERED: Lorazepam 0.5 MG TAB PO PRN (06:23)
[2018-09-25] MEDS ORDERED: Acetaminophen 500 MG TAB PO PRN (06:23)
[2018-09-25] MEDS: Sodium Chloride 0.9% 1,000 ML IV SCH ×2 (06:39→15:47)
[2018-09-25] MEDS: Ondansetron PF 4 MG/2 ML Vial IVP PRN ×2 (06:47→18:34)
[2018-09-25] MEDS: HYDROcodone/Acetaminophen 10/325 mg Tablet PO PRN ×2 (06:47→10:51)
[2018-09-25 06:51] LABS: Band 12 % (5-11); Hemoglobin 8.7 g/dL (12.0-16.0); Lymphocytes 11 % (21-51); MDiff Complete? YES; Mean Corpuscular HGB CONC 32.7 g/dL (32.0-36.0); Mean Corpuscular Hemoglobin 26.2 pg (27.0-31.0); Mean Corpuscular Volume 80.2 fL (78.0-98.0); Mean Platelet Volume 9.2 fL (7.4-10.4); Metamyelocyte 1 % (0-0); Monocytes 6 % (0-10); Neutrophil 70 % (42-75); Platelet Count 265 thou/uL (130-400); Platelet Morphology Comment Appears Adequate; RBC Distribution Width 21.1 % (11.5-14.5); White Blood Cell (WBC) Count 11.6 thou/uL (4.8-10.8)
[2018-09-25 06:59] LABS: ALT (SGPT) 327 U/L (8-55); AST (SGOT) 321 U/L (5-34); Alkaline Phosphatase 579 U/L (40-150); Anion Gap 12 mmol/L (10-20); BUN (Urea Nitrogen) 10 mg/dL (9.8-20.1); Bilirubin, Total 3.2 mg/dL (0.2-1.2); Calc. Creatinine Clearance 78 mL/min (70-130); Calcium 8.1 mg/dL (7.8-10.44); Carbon Dioxide 22 mmol/L (23-31); Chloride 104 mmol/L (98-107); Estimated GFR-MDRD Greater than 90; Globulin 2.3 g/dL (2.4-3.5); Glucose 85 mg/dL (80-115); Protein, Total 5.3 g/dL (6.0-8.3); Sodium 135 mmol/L (136-145)
[2018-09-25 07:08] LABS: Potassium 2.9 mmol/L (3.5-5.1)
--- NOTE | 2018-09-25 07:36 | HP ---
PRIMARY CARE PROVIDER: Ayaka Luke. PRIMARY MEDICAL ONCOLOGIST: Zahida Fernandez MD CHIEF COMPLAINT: Fever and abdominal pain. HISTORY OF PRESENT ILLNESS: This is a 63-year-old female, who was recently admitted to [facility] from 09/11/2018 to 09/21/2018 due to pancytopenia due to recent chemotherapy for a pancreatic adenocarcinoma. The patient developed severe mucositis in addition to urinary tract infection with E coli species, treated with IV Rocephin during her hospital course. The patient stabilized with IV antibiotic therapy and was released home on 09/21/2018. The patient's overall blood counts stabilized with resolution of the pancytopenia with supportive management. The patient states she returned home, but developed a fever up to 102 degrees Fahrenheit with associated general weakness and dehydration. The patient noted dark urine over the last 24 to 48 hours, but no change to her bowel movements. The patient states she has been compliant with her chronic medication regimen including her fentanyl patch and antiemetics. The patient's history is significant for a common bile duct stent placement in July 2018 due to biliary obstruction from the pancreatic mass. The patient does report nausea without emesis and decreased oral intake in general. In the emergency room, the patient underwent general evaluation including metabolic screening showing transaminitis as well as hyperbilirubinemia in addition to leukocytosis with neutrophilia. The patient received IV cefepime, acetaminophen, Zofran, and intravenous normal saline x2 liters after meeting sepsis criteria. Abdominal ultrasound was also obtained showing evidence of marked common bile duct dilation with echogenic debris. Common bile duct stent was noted in place. PAST MEDICAL HISTORY: 1. Pancreatic adenocarcinoma with chemotherapy. 2. Status post severe mucositis secondary to chemotherapy. 3. Recurrent nausea and vomiting secondary to chemotherapy. 4. Pancytopenia secondary to chemotherapy. 5. Chronic hepatitis C. 6. Status post urinary tract infection with E coli. 7. Depression. 8. Gastroesophageal reflux disease. 9. Inflammatory bowel syndrome. PAST SURGICAL HISTORY: 1. Status post hysterectomy. 2. Status post MediPort placement. 3. Status post cholecystectomy. 4. Status post appendectomy. 5. Status post cervical laminectomy. 6. Status post right knee arthroscopy. 7. Status post common bile duct stent placement. CURRENT MEDICATIONS: 1. Bupropion 150 mg p.o. b.i.d. 2. [place] 10/325 mg one tablet p.o. q.4 hours p.r.n. pain. 3. Latanoprost one drop to each eye at bedtime. 4. Lorazepam 0.5 mg p.o. q.6 hours p.r.n. 5. Zofran 8 mg p.o. q.6 hours p.r.n. 6. Phenergan 25 mg p.o. q.6 hours p.r.n. 7. Duragesic patch 25 mcg transdermally q.72 hours. 8. Protonix 40 mg p.o. daily. ALLERGIES: TO CIPROFLOXACIN, DULOXETINE, LEVAQUIN, AND TERIPARATIDE. FAMILY HISTORY: Mother with ovarian cancer. Sister with history of lung cancer. SOCIAL HISTORY: Resides in [place], [place]. Works at the [employer] in [place], [place]. Former tobacco use. No alcohol or illicit drug use. Accompanied by her daughter in the hospital. REVIEW OF SYSTEMS: CONSTITUTIONAL: Negative for weight loss or gain, ability to conduct usual activities. SKIN: Negative for rash, itching. EYES: Negative for double vision, pain. ENT/MOUTH: Negative for nose bleeding, neck stiffness, pain, tenderness. CARDIOVASCULAR: Negative for palpitations, dyspnea on exertion, orthopnea. RESPIRATORY: Negative for shortness of breath, wheezing, cough, hemoptysis, fever or night sweats. GASTROINTESTINAL: Negative for poor appetite, abdominal pain, heartburn, nausea, vomiting, constipation, or diarrhea. GENITOURINARY: Negative for urgency, frequency, dysuria, nocturia. MUSCULOSKELETAL: Negative for pain, swelling. NEUROLOGIC/PSYCHIATRIC: Negative for anxiety, depression. ALLERGY/IMMUNOLOGIC: Negative for skin rash, bleeding tendency. Otherwise, negative except as stated per HPI. PHYSICAL EXAMINATION: VITAL SIGNS: On admission, blood pressure 109/65, pulse 96, respiratory rate 18, temperature 99.4 degrees Fahrenheit, and O2 saturation 96% on room air. GENERAL APPEARANCE: This is a 63-year-old female, alert and oriented x3, pleasant, in no acute distress. HEENT: Pupils are equal, round, and reactive to light and accommodation. Extraocular muscles are intact. Mild scleral icterus noted. No conjunctival injection. Nares patent. OP is clear. NECK: Supple. No cervical adenopathy. No thyromegaly. No carotid bruits. No JVD appreciated. Cervical spine with full active and passive range of motion. No meningeal signs noted. CHEST: Lungs are clear to auscultation bilaterally. CARDIOVASCULAR: S1 and S2 without noted murmur, rub, or gallop. ABDOMEN: Rounded with tenderness to palpation in the right upper quadrant and midepigastric region. Bowel sounds are positive in all 4 quadrants. EXTREMITIES: Warm and dry with fair turgor. No clubbing, cyanosis, or asymmetric edema appreciated. Pulses are palpable distally at the dorsalis pedis, posterior tibial, and popliteal arteries bilaterally. Capillary refill less than 2 seconds. NEUROLOGIC: Cranial nerves II through XII are grossly intact. No focal or lateralizing signs appreciated. PERTINENT LABORATORY AND X-RAY FINDINGS: Sodium 129, potassium 3.5, chloride 94, CO2 of 22, BUN 13, creatinine 0.83, and glucose 124. Lactic acid level ranged between 0.7 to 2.0, calcium 9.2, total bilirubin 3.6, AST 552, ALT 474, alkaline phosphatase 806, and albumin 3.8. CBC showed a white blood cell count of 21.7, hemoglobin 10.5, hematocrit 33, and platelet count 434 with 76% neutrophils, 9% bands. Urinalysis, positive for ketones and moderate bilirubin. Influenza A and B antigen dated 09/24/2018, negative. Portable chest x-ray dated 09/24/2018, showed no acute cardiopulmonary process. Abdominal ultrasound dated 09/24/2018, showed marked common bile duct dilation up to 2.5 cm with echogenic debris noted. Pancreatic mass 4.2 cm noted. Common bile duct stent in place. EKG dated 09/24/2018, by my interpretation shows sinus tachycardia with heart rates in the 120s. Normal R-wave progression noted in the precordial leads. Normal axis. ASSESSMENT AND PLAN: 1. Sepsis. The patient likely with sepsis secondary to biliary obstruction. Continue meropenem 1 g IV q.8 hours. Blood and urine cultures pending. Continue intravenous normal saline at 100 mL/h. 2. Biliary obstruction. Suspect multifactorial including common bile duct stent in addition to pancreatic adenocarcinoma. We will consult GI Service for further evaluation and consideration for stent exchange. N.p.o. status currently. Pain control as clinically indicated. 3. Transaminitis secondary to biliary obstruction. Continue serial monitoring of LFTs. Anticipate improvement with common bile duct stent replacement. 4. Pancreatic adenocarcinoma. Currently receiving chemotherapy. We will follow up as an outpatient with Medical Oncology Service. 5. Chronic anemia secondary to pancreatic adenocarcinoma, stable currently. Continue serial H and H monitoring. No current evidence to suggest acute blood loss. 6. Hyponatremia, chronic. Suspect secondary to decreased oral intake. Continue intravenous normal saline and repeat sodium level in the a.m. 7. Prophylaxis. SCDs while in bed. Pepcid 20 mg IV q.12 hours. 8. Code status is full. Surrogate medical decision maker is the patient's spouse. Job ID: [id number]
--- NOTE | 2018-09-25 07:42 | ULT ---
PRELIMINARY REPORT/[facility]/EMERGENCY AFTER HOURS PROCEDURE: EXAM: US Abdomen Limited, Right Upper Quadrant EXAM DATE/TIME: 09/24/2018 11:42 PM CLINICAL HISTORY: 63 years old, female; Other: Epigastric pain; Prior surgery; Surgery date: 6+ months; Surgery type: G b removed TECHNIQUE: Imaging protocol: Real-time ultrasound of the abdomen with image documentation. Examination was focus ed on the right upper quadrant. COMPARISON: No relevant prior studies available. FINDINGS: Liver: Intrahepatic biliary dilation. No mass. Gallbladder: Prior cholecystectomy. Common bile duct: CBD stent in place. Markedly dilated CBD measuring up to 2.5 cm containing echogeni c area/debris. Pancreas: Pancreatic mass measuring up to 4.2 cm. Dilated pancreatic duct. Right kidney: No acute findings. No mass. No hydronephrosis. IMPRESSION: 1. Pancreatic mass with pancreatic ductal and biliary dilation. 2. Markedly dilated CBD containing echogenic area/debris; CBD stent in place. Thank you for allowing us to participate in the care of your patient. Dictated and Authenticated by: Leonardo Jo MD 09/25/2018 2:43 AM Central Time ([place] & [place]) FINAL REPORT: SONOGRAM RIGHT UPPER QUADRANT: DATE: 09/24/2018. TIME: Performed on emergency basis at 2344 hours. HISTORY: Right upper quadrant pain. Pancreas cancer. FINDINGS: Agree with the preliminary report by Dr. Jo from [facility]. Biliary stent in place. Pancre atic mass again demonstrated. Common duct measures up to 2.5 cm with echogenic debris. Intrahepatic biliary dilatation is greater than on the most recent CT scan. Transcribed Date/Time: 09/25/2018 8:55 AM
[2018-09-25] MEDS ORDERED: Potassium Chloride 40 MEQ in Sodium Chloride 0.9% 500 ML IVPB SCH (07:45)
[2018-09-25] MEDS: MEROPENEM 1 GM/50 ML 1 GM in Premix Bag 1 BAG IVPB SCH ×3 (08:24→23:59)
[2018-09-25] MEDS: Famotidine/PF 20 mg/2ml Vial SLOW IVP SCH ×2 (08:25→20:37)
[2018-09-25] MEDS: buPROPion 75 MG TAB PO SCH ×2 (08:25→20:37)
--- NOTE | 2018-09-25 11:34 | PDOC.PN ---
- Subjective Encounter Start Date: 09/25/18 Encounter Start Time: 11:32 Ms. Nunes was seen today in follow-up of Biliaty obstruction, and fever, and history of pancreatic mass. she says the abdominal pain has increased. she also feels more nauseated this morning. - Objective Resuscitation Status - Order Detail: 09/25/18 06:14 Resuscitation Status Routine Resuscitation Status: FULL: Full Resuscitation MAR Reviewed: Yes Vital Signs & Weight: Vital Signs (12 hours) Temp Pulse Resp BP Pulse Ox 09/25/18 07:25 98.5 F 92 16 150/80 H 96 09/25/18 04:44 98.9 F 89 18 131/74 96 09/25/18 04:00 98 F 88 18 137/81 96 09/25/18 01:46 99.4 F 96 18 109/65 96 Weight Weight 115 lb 4.8 oz Result Diagrams: 09/25/18 06:31 09/25/18 06:31 Phys Exam - Physical Examination HEENT: PERRLA Respiratory: no wheezing, no rales, no rhonchi, clear to auscultation bilateral Cardiovascular: RRR, no significant murmur, no rub Gastrointestinal: soft, no distention, positive bowel sounds + epigastric tenderness Musculoskeletal: no edema, pulses present, edema present Dx/Plan (1) Cholangitis Code(s): K83.09 - OTHER CHOLANGITIS Status: Acute (2) Pancreatic adenocarcinoma Code(s): C25.9 - MALIGNANT NEOPLASM OF PANCREAS, UNSPECIFIED Status: Acute Comment: on FOLFIRINOX (3) Obstructive jaundice Code(s): K83.8 - OTHER SPECIFIED DISEASES OF BILIARY TRACT Status: Chronic Comment: stable and resolving - Plan * Cholangitis- continue Meropenem,- the WBC count is going down, despite increased pain * GI evaluation is pending * Symptom management with IV Morphine and Toradol- try- Toradol first ( as she is on a Fentanyl patch * Pancreatic Cancer- stable. * Will add Lovenox for GI Prophylaxis
[2018-09-25] MEDS ORDERED: Ketorolac Tromethamine 30 MG/ML VIAL IVP SCH (11:45)
[2018-09-25] MEDS ORDERED: PROPOFOL 200 MG/20 ML VIAL ONE (11:56)
[2018-09-25] MEDS ORDERED: Lidocaine 1% PF 5 ML VIAL ONE (11:56)
[2018-09-25] MEDS ORDERED: Dexamethasone 20 MG/5 ML VIAL ONE (11:56)
[2018-09-25] MEDS ORDERED: Succinylcholine Chloride 20 MG/ML 10 ml SYRINGE FS ONE (11:56)
[2018-09-25] MEDS ORDERED: Ondansetron PF 4 MG/2 ML Vial ONE (11:56)
[2018-09-25] MEDS ORDERED: Phenylephrine HCL 10 MG/ML VIAL ONE (11:56)
[2018-09-25] MEDS: Morphine 4 MG/ML VIAL SLOW IVP PRN ×2 (12:19→18:34)
[2018-09-25] MEDS ORDERED: Iothalamate Meglumine 60% 50 ML VIAL FS ONE (16:02)
[2018-09-25] MEDS ORDERED: Indomethacin 50 MG SUPP ONE (16:12)
[2018-09-25] MEDS ORDERED: Fentanyl 100 MCG/2 ML VIAL ONE (16:17)
[2018-09-25] MEDS ORDERED: Promethazine HCl 25 MG/ML VIAL SLOW IVP PRN (17:33)
[2018-09-25] MEDS ORDERED: Ondansetron HCl/PF 4 MG/2 ML Vial IVP PRN (17:33)
[2018-09-25] MEDS ORDERED: Morphine Sulfate 2 MG/ML SYRINGE SLOW IVP PRN (17:33)
[2018-09-25] MEDS ORDERED: PACU-Morphine 4MG/ML VIAL SLOW IVP PRN (17:33)
[2018-09-25] MEDS ORDERED: HYDROmorphone 2 MG/ML VIAL SLOW IVP PRN (17:33)
[2018-09-25] MEDS ORDERED: Promethazine HCl 25 MG/ML VIAL IM PRN (17:33)
--- NOTE | 2018-09-25 17:49 | RAD ---
ERCP FOUR VIEWS: 09/25/18 HISTORY: Stent placement. The initial film shows a stent in place which appears to be subsequently removed and replaced with a mesh type stent on the final images. IMPRESSION: Placement of stent. POS: JAYLAN
[2018-09-25] MEDS ORDERED: Latanoprost 0.005% Ophth Soln 2.5 ml Bottle EA EYE SCH (21:00)
--- NOTE | 2018-09-25 21:33 | CON ---
DATE OF CONSULTATION: REASON FOR CONSULT: Mild cholangitis. HISTORY OF PRESENT ILLNESS: Ms. Nunes is a 63-year-old female who was diagnosed with adenocarcinoma of the pancreas in July. She was found to have a locally advanced disease with biopsies positive, ampullary biopsy and by brushings of the bile duct. She was seen by Dr. Dl Parker in [place], [place] of Surgical Oncology, who felt that if she could have some response to chemotherapy and possible radiation preoperatively he may will still proceed with the Whipple and that is still a plan going forward. She has had 2 courses of chemotherapy, and was felt to have a course starting last week, but could not because she had pancytopenia and mucositis for which she was in the hospital for a few days. She went home, was doing well until Tuesday, yesterday, when she developed fever and jaundice. She came to the emergency room, was noted to have leukocytosis with obstructive biliary pattern and ultrasound showing a dilated bile duct with a stent in place, but quite a bit of debris in the bile duct above the stent. She was started on meropenem and responded rapidly. Presently, she is without complaints of pain or fever or chills. Her pancytopenia resolved at home before coming in this admission. She had dark urine and fever up to 102. In addition to the antibiotics noted above, she received some cefepime and Zofran in the emergency room with 2 L of fluid as well. PAST MEDICAL HISTORY: 1. Pancreatic adenocarcinoma, treated with chemotherapy. 2. Severe mucositis secondary to chemotherapy, resolved. 3. Nausea and vomiting, secondary to chemotherapy, resolved. 4. Pancytopenia secondary to nausea and vomiting, resolved. 5. History of chronic hepatitis C. 6. Depression and reflux. PAST SURGICAL HISTORY: Hysterectomy, MediPort, cholecystectomy, appendectomy, cervical laminectomy, CBD stent after sphincterotomy. MEDICATIONS: 1. Bupropion. 2. [place]. 3. Lorazepam. 4. Zofran. 5. Phenergan. 6. Duragesic patch. 7. Protonix. ALLERGIES: CIPRO, DULOXETINE, LEVAQUIN, TERIPARATIDE. FAMILY HISTORY: Mother with ovarian cancer, sister with lung cancer. SOCIAL HISTORY: The patient lives in [place], [place]. Works at [employer] in [place]. Does not smoke, drink, or use drugs. PRESENT MEDICATIONS: 1. Tylenol. 2. Wellbutrin. 3. Lovenox. 4. Pepcid. 5. Duragesic. 6. Ativan. 7. Meropenem. PHYSICAL EXAMINATION: VITAL SIGNS: She is resting comfortably in bed. T-max since arrival on the floor 98.9, pulse 96, blood pressure 115/74. GENERAL: She is resting comfortably in bed. She is in no distress. LUNGS: Clear. HEART: Regular rate and rhythm without rubs or murmurs. ABDOMEN: Soft and nontender. LABORATORY DATA: White count 21,000 yesterday, it is 11.6 today, hemoglobin is 8.7, platelet count 256, 12% bands. INR 1.1. Sodium 135, potassium 2.9 at 6 this morning, chloride 104, bicarb 22, BUN and creatinine are 10 and 0.6. Bilirubin is 3.6 yesterday, 3.2 today. AST and ALT were 552 and 474, they are 321 and 327. Alkaline phosphatase has gone down from 806 to 579. On 09/18, her AST and ALT were 35 and 37 with bilirubin of 0.3, and alkaline phosphatase of 218. Microbiology, urine and blood pending. IMAGING: As per HPI. ASSESSMENT: 1. Locally advanced adenocarcinoma of the pancreas. 2. Biliary stent placed for biliary obstruction noted on ERCP when all this diagnosis was made on 08/04/2018. Ultrasound now shows some debris in the common bile duct. She likely has an episode of cholangitis related to stent occlusion based on her labs and response to antibiotics. PLAN: ERCP with replacement of stent, we will try to place a metallic stent. I have talked with her surgeon, Dr. Parker in [place] over the phone this afternoon, he is okay with a metallic stent . I have also talked to Dr. Fernandez who is going to come see the patient here. Risks, benefits, and possible complications of the procedure were explained to the patient including perforation aspiration. Differential diagnosis would also include tumor advancement or overgrowth of the stent. Job ID: [id number]
[2018-09-26] MEDS: Sodium Chloride 0.9% 1,000 ML IV SCH (00:03)
[2018-09-26 05:31] VITALS: BP 116/67
[2018-09-26 05:45] LABS: Band 14 % (5-11); Hemoglobin 8.6 g/dL (12.0-16.0); Hypochromia SLIGHT = 6-15 cells (100X) (0-5/hpf); Lymphocytes 9 % (21-51); MDiff Complete? YES; Mean Corpuscular HGB CONC 31.7 g/dL (32.0-36.0); Mean Corpuscular Volume 82.1 fL (78.0-98.0); Mean Platelet Volume 10.2 fL (7.4-10.4); Metamyelocyte 1 % (0-0); Monocytes 5 % (0-10); Neutrophil 71 % (42-75); Platelet Count 317 thou/uL (130-400); Platelet Morphology Comment Appears Adequate; RBC Distribution Width 21.2 % (11.5-14.5); Red Blood Cell (RBC) Count 3.31 mill/uL (4.20-5.40); White Blood Cell (WBC) Count 16.9 thou/uL (4.8-10.8)
[2018-09-26 05:55] LABS: ALT (SGPT) 243 U/L (8-55); AST (SGOT) 170 U/L (5-34); Albumin 2.9 g/dL (3.4-4.8); Alkaline Phosphatase 560 U/L (40-150); Anion Gap 14 mmol/L (10-20); BUN (Urea Nitrogen) 8 mg/dL (9.8-20.1); Bilirubin, Total 2.2 mg/dL (0.2-1.2); Calc. Creatinine Clearance 74 mL/min (70-130); Calcium 8.4 mg/dL (7.8-10.44); Carbon Dioxide 20 mmol/L (23-31); Chloride 103 mmol/L (98-107); Estimated GFR-MDRD Greater than 90; Globulin 2.4 g/dL (2.4-3.5); Glucose 86 mg/dL (80-115); Protein, Total 5.3 g/dL (6.0-8.3); Sodium 133 mmol/L (136-145)
[2018-09-26 07:29] VITALS: TEMP 98.6
[2018-09-26] MEDS: Famotidine/PF 20 mg/2ml Vial SLOW IVP SCH (07:49)
[2018-09-26] MEDS: MEROPENEM 1 GM/50 ML 1 GM in Premix Bag 1 BAG IVPB SCH (07:50)
[2018-09-26] MEDS: buPROPion 75 MG TAB PO SCH (07:50)
[2018-09-26] MEDS ORDERED: Enoxaparin Sodium 40 MG/0.4 ML SYRINGE SC SCH (09:00)
--- NOTE | 2018-09-26 10:05 | OP ---
DATE OF PROCEDURE: 09/25/2018 PROCEDURE PERFORMED: Endoscopic retrograde cholangiopancreatography with change of stent. PREPROCEDURE DIAGNOSES: 1. Ascending cholangitis. 2. Pancreatic malignancy with biliary obstruction. POSTPROCEDURE DIAGNOSES: 1. An occluded biliary stent was noted coming from the ampulla. 2. The above noted stent was removed and replaced with a 10 mm x 4 cm coated Wallstent. RECOMMENDATIONS: Continue IV antibiotics for 24 hours. If the patient continues to improve, she can go home tomorrow on oral antibiotics and can do her chemotherapy later this week. If blood cultures are positive, she may need more long-term treatment. ANESTHESIA: General endotracheal anesthesia. DESCRIPTION OF PROCEDURE: After the patient was informed of the risks, benefits, of possible complications of endoscopy, including perforation, bleeding, reaction to medication and aspiration, informed consent was obtained. The patient was brought to endoscopy suite, where she was sedated in gradual fashion. Once she was comfortable, a bite block was placed in the orifice. She was placed in prone position after airway was secured. The side-viewing duodenoscope was advanced through the esophagus, stomach, and 2nd and 3rd portions of duodenum. The ampulla was brought into view. The previously noted stent was noted to be in place protruding and impinged against the opposite wall of the duodenum. Its positioning looked good and it was up above the proximal aspect of the previous dilated duct when compared to the previous films. The duct was grasped and removed. The sphincterotome was then used to cannulate the bile duct and cholangiogram was performed showing the stricture about distal 2 cm of the bile duct. The ampulla actually looked pretty good. A balloon was used to dilate this area, and then swept some of the debris out of the duct. At this point in time, it was decided that we would place a metallic stent. We placed a 4 cm x 10 mm stent across the strictured area as there were plans for a potential Whipple in the next few months if responds to chemotherapy. There was good drainage endoscopically and radiographically, and good placement of the stent with portion hanging out of the distal bile duct. The patient was then extubated and brought to recovery room in stable condition. Findings and procedure were discussed with the patient's family. Job ID: [id number]
--- NOTE | 2018-09-26 19:29 | DIS ---
DATE OF ADMISSION: 09/25/2018 DATE OF DISCHARGE: 09/26/2018 DISCHARGE DIAGNOSES: 1. Sepsis secondary to cholangitis. 2. Cholangitis secondary to bile duct stent occlusion, status post exchange to metallic stent. 3. Transaminitis with hyperbilirubinemia secondary to bile duct stent occlusion. 4. Pancreatic adenocarcinoma with current chemotherapy. 5. Chronic hyponatremia. 6. Chronic anemia secondary to pancreatic adenocarcinoma. CONSULTATIONS: 1. Dr. Fernandez with Medical Oncology Service. 2. Dr. Matamoros with Gastroenterology Service. 3. Dr. Bo with Infectious Disease Service. PERTINENT LABORATORY AND X-RAY FINDINGS: Sodium ranged between 129 to 135, potassium ranged between 2.9 to 4.0. Total bilirubin ranged between 2.2 to 3.6. AST ranged between 170 to 552, ALT ranged between 243 to 474, alkaline phosphatase ranged between 560 to 806. CBC showed a white blood cell count ranged between 11.6 to 21.7, hemoglobin ranged between 8.6 to 10.5. Blood culture dated 09/24/2018, showed 1/2 positive for Enterococcus faecalis. Influenza A and B antigen negative on 09/24/2018. Urine culture dated 09/24/2018, showed 10,000 to 25,000 colonies of normal skin fran. Portable chest x-ray dated 09/24/2018, showed no acute cardiopulmonary process. Abdominal ultrasound dated 09/24/2018, showed pancreatic mass with pancreatic ductal and biliary dilation. Markedly dilated common bile duct with echogenic debris with common bile duct stent in place. HOSPITAL COURSE: The patient was admitted to the [facility] after presenting with increasing abdominal pain with associated nausea and emesis. The patient underwent general evaluation including abdominal ultrasound showing occlusion of the common bile duct stent previously placed in July 2018. The patient was placed on empiric antibiotic therapy with meropenem and given IV fluids. The patient was evaluated by the GI Service, undergoing ERCP evaluation with replacement of common bile duct stent with a metallic stent. The patient continued to clinically stabilize after stent replacement with overall improving and resolution of cholangitis. The patient was noted with 1/2 blood cultures positive for Enterococcus species with current recommendations to treat with Augmentin for 10-14 days after discharge. The patient has been tolerating regular oral intake and remaining afebrile. Vital signs have remained stable and the patient has been ambulatory without assistance or difficulty. I have examined the patient at the time of discharge and discussed followup instructions. The patient verbalized understanding and in agreement and ready for discharge on 09/26/2018. DISCHARGE MEDICATIONS: 1. Augmentin 875 mg 1 tablet p.o. b.i.d. x14 days. 2. Bupropion 150 mg p.o. b.i.d. 3. [place] 10/325 mg one tablet p.o. q.4 to 6 hours p.r.n. pain. 4. Latanoprost 0.005% one drop to each eye at bedtime. 5. Lorazepam 0.5 mg p.o. q.6 hours p.r.n. 6. Zofran 8 mg p.o. q.6 hours p.r.n. nausea, vomiting. 7. Phenergan 25 mg p.o. q.6 hours p.r.n. 8. Duragesic patch 25 mcg transdermally q.72 hours. 9. Protonix 40 mg p.o. daily. FOLLOWUP: The patient will follow up with Kirsty Hsu within 7 days of discharge. The patient may follow up with Dr. Zahida Fernandez on 09/27/2018, for resumption of chemotherapy. The patient may follow up with Dr. Matamoros as needed. CONDITION ON DISCHARGE: Stable. ACTIVITY: Ad-vargas. DIET: Regular. CODE STATUS: Full. DISPOSITION: Home on 09/26/2018. TIME SPENT: Total time preparing and coordinating discharge, 35 minutes. Job ID: [id number]
== END 2018-09-26 10:15 | disposition home or self-care (01) | DRG 919 ==
LOC: ERS 20:01 → SURG A 09-25 01:58
PROVIDERS: ADMIT Family Medicine; ATTEND Family Medicine
PROC: 0FPB8DZ Removal of Intraluminal Device from Hepatobiliary Duct, Via Natural or Artificial Opening Endoscopic (ICD-10-PCS; principal; 2018-09-25)
PROC: 0F798DZ Dilation of Common Bile Duct with Intraluminal Device, Via Natural or Artificial Opening Endoscopic (ICD-10-PCS; 2018-09-25)
DX: T85.79XA Infection and inflammatory reaction due to other internal prosthetic devices, implants and grafts, initial encounter (principal); A41.81 Sepsis due to Enterococcus; C25.9 Malignant neoplasm of pancreas, unspecified; E87.1 Hypo-osmolality and hyponatremia; K80.31 Calculus of bile duct with cholangitis, unspecified, with obstruction; T85.520A Displacement of bile duct prosthesis, initial encounter; K73.9 Chronic hepatitis, unspecified; K21.9 Gastro-esophageal reflux disease without esophagitis; D63.0 Anemia in neoplastic disease; F41.9 Anxiety disorder, unspecified; Z88.1 Allergy status to other antibiotic agents; Z90.710 Acquired absence of both cervix and uterus; Z87.440 Personal history of urinary (tract) infections; Z90.49 Acquired absence of other specified parts of digestive tract; Z79.899 Other long term (current) drug therapy; Z88.8 Allergy status to other drugs, medicaments and biological substances
CPT/HCPCS: 36415; 71045; 74330; 76705; 80053; 81003; 81015; 83605; 84484; 85007; 85025; 85027; 87040; 87077; 87086; 87149; 87186; 87804; 93005; C1874; J0692; J1100; J1610; J1650; J1885; J2001; J2185; J2270; J2370; J2405; J2704; J3010; J3480; J7050; Q0169; Q9961; S0028

== ENCOUNTER 2018-11-21 11:14 | Inpatient (IN) | payer BC ==
[2018-11-21 12:42] LABS: #Lymphocytes 0.4 thou/uL (1.20-3.40); #Monocytes 0.6 thou/uL (0.11-0.59); #Neutrophils 4.3 thou/uL (1.40-6.50); %Basophils 0.3 % (0.0-1.0); %Eosinophils 0.2 % (0.0-10.0); %Monocytes 11.2 % (0.0-10.0); %Neutrophils 80.3 % (42.0-75.0); Hemoglobin 8.8 g/dL (12.0-16.0); Mean Corpuscular Hemoglobin 30.5 pg (27.0-31.0); Mean Corpuscular Volume 95.4 fL (78.0-98.0); Mean Platelet Volume 8.7 fL (7.4-10.4); Platelet Count 220 thou/uL (130-400); RBC Distribution Width 19.6 % (11.5-14.5); Red Blood Cell (RBC) Count 2.87 mill/uL (4.20-5.40); White Blood Cell (WBC) Count 5.4 thou/uL (4.8-10.8)
[2018-11-21 12:48] LABS: ALT (SGPT) 18 U/L (8-55); AST (SGOT) 33 U/L (5-34); Albumin 2.1 g/dL (3.4-4.8); Alkaline Phosphatase 184 U/L (40-150); Anion Gap 10 mmol/L (10-20); BUN (Urea Nitrogen) 7 mg/dL (9.8-20.1); Bilirubin, Total 0.8 mg/dL (0.2-1.2); Calc. Creatinine Clearance 0 mL/min (70-130); Calcium 7.4 mg/dL (7.8-10.44); Carbon Dioxide 21 mmol/L (23-31); Chloride 108 mmol/L (98-107); Estimated GFR-MDRD Greater than 90; Glucose 103 mg/dL (80-115); Potassium 4.1 mmol/L (3.5-5.1); Protein, Total 4.1 g/dL (6.0-8.3); Sodium 135 mmol/L (136-145)
--- NOTE | 2018-11-21 14:24 | CT ---
CTA CHEST WITH CONTRAST: 11/21/18 Axial tomograms were obtained following a pulmonary angio protocol with multiplanar reconstruction an d 3D postprocessing. INDICATIONS: History of pancreatic cancer. Shortness of breath. Comparison made to CTA chest of 08/30/18. FINDINGS: Pulmonary arteries show adequate opacification. No evidence of pulmonary embolus identified. Thoracic aorta unremarkable. No evidence of dissection. There are mild atherosclerotic changes. Linear artifact in a main right upper lobe pulmonary artery is produced from dense opacification to a djacent superior vena cava. The lungs show small bilateral pleural effusions which have occurred since the prior exam. There is p atchy linear atelectasis or infiltrate in the posterior right lung base which is new. Mild atelectasi s in the posterior left lung base. Mediastinum unremarkable. Images through the upper abdomen again show pneumobilia and severe fatty infiltration of the liver. IMPRESSION: 1. No evidence of pulmonary embolus. 2. New small pleural effusions have occurred. Streaky atelectasis and/or infiltrate in the poste rior right lung base is noted today. Mild left basilar atelectasis is noted. POS: [facility]
[2018-11-21] MEDS ORDERED: ISOVUE-370 76%-LOCM 1 ML ONE (15:11)
--- NOTE | 2018-11-21 15:14 | PDOC.FPRHP ---
- History of Present Illness Chief Complaint: Fall, Dyspnea History of Present Illness: Patient presented to [facility] ER earlier today after she had fallen at home. Fall was unwitnessed and occurred in patient's home. Patient says she stood up and felt weak, and then fell down. She thinks she bumped her head when she fell. Patient's was home when she fell and was able to attend to her quickly after the fall. Patient states that she has fallen 3 times in the past 24 hours, and 7 times in the past week. Patient sometimes trips over things then she falls. Other times she says she feels weak and then is unable to remain standing so she falls down. Patient denies loss of consciousness with falls, denies presyncopal symptoms including dizziness or vision changes. Denies fever/chills, nausea, vomiting, stool changes, headache, vision or hearing changes, myalgia, arthralgia. Has some occasional mid-abdominal pain. Patient additionally reports that she has been feeling more short of breath in recent weeks. When her daughter, who is an ASSOCIATE CREATIVE DIRECTOR, takes her O2 saturation at home while resting she is in the 90s. However after walking a distance of about 20 feet she has an O2 saturation in the 80s, which improves once she rests. Today when she came into the ER initially she had an O2 sat in the upper 70s. Patient was recently diagnosed with Pancreatic Cancer in July 2018. She was told recently that she is Stage 3. She had 4 rounds of Chemo done in August 2018. Currently on radiation Tuesday through Tuesday, is on dose 14 of 28. Radiation dosing was recently lowered due to patient's tolerance of regime. She receives 1L IVF on , and has bloodwork done on Tuesdays. Her primary oncologist is Dr. Fernandez, who she last saw 2 weeks ago. She has 2 other oncology physicians through [facility]. Dr. Parker is her oncology surgeon. She also has PCP Dr. Gonzalez. Patient reports weight loss of 40 pound since August 2018. Patient saw Dr. Bowser, Cardiology back in December 2017. At that time was diagnosed with GERD. Patient had an echo also done at that time which showed EF 55-60%, mild MVP, and possible mass or vegetation on the aortic valve. Dr. Bowser's office stated she had no further workup with their office since. ED Course: Patient given 1L Normal Saline in ER. CBC, CMP, Lactic Acid, Troponins obtained. CTA performed with PE protocol. - Allergies/Adverse Reactions Allergies Allergy/AdvReac Type Severity Reaction Status Date / Time ciprofloxacin [From Cipro] Allergy Verified 11/21/18 16:30 duloxetine [From Cymbalta] Allergy Verified 11/21/18 16:30 levofloxacin [From Levaquin] Allergy Verified 11/21/18 16:30 teriparatide [From Forteo] Allergy Verified 11/21/18 16:30 - Home Medications Medication Instructions Recorded Confirmed Type buPROPion HCl 150 mg PO BID 08/04/18 09/25/18 History Pantoprazole [Protonix] 40 mg PO DAILY #30 tab 08/05/18 09/25/18 Rx Latanoprost/Pf [Latanoprost 0.005% 1 drop EA EYE HS 08/10/18 09/25/18 History Eye Drop] HYDROcodone/Acetaminophen [Taylor 1 each PO Q4HR PRN 09/11/18 09/25/18 History 10-325 Tablet] LORazepam [Lorazepam] 0.5 mg PO Q6HR PRN 09/11/18 09/25/18 History Ondansetron HCl 8 mg PO Q6H PRN 09/11/18 09/25/18 History Promethazine [Phenergan] 25 mg PO Q6HR PRN 09/11/18 09/25/18 History fentaNYL [Duragesic] 25 mcg TD Q3D #4 patch 09/20/18 09/25/18 Rx Amoxicillin/Potassium Clav 1 each PO BID #28 tablet 09/26/18 Rx [Augmentin 875-125 Tablet] - History PMHx: Pancreatic Cancer (see HPI), Osteoporosis, Glaucoma bilaterally, Depression, GERD, Mouth ulcers, hx of HTN PSHx: Bile duct stent replacment in September 2018, appendectomy, hysterectomy, cholecystectomy, neck fusion, knee arthroscopy FHx: Dad age 47 from unknown Cancer with mets, Mom age 63 from lung cancer, Sister age 65 from lung cancer, another sister alive with T2DM Social: Non-smoker, denies EtOH use. Lives with . Has daughter who is an ASSOCIATE CREATIVE DIRECTOR, checks on her frequently. Patient is a [employer] nurse. - Review of Systems General: reports: weight/appetite/sleep changes (40 pound weight loss since August 2018), fatigue. denies: fever/chills Eyes: denies: vision changes ENT: denies: nasal congestion Respiratory: reports: shortness of breath, exercise intolerance. denies: cough , congestion Cardiovascular: reports: edema. denies: chest pain, palpitation Gastrointestinal: reports: abdominal pain. denies: nausea, vomiting, diarrhea, constipation Genitourinary: denies: dysuria Skin: reports: lesions (scattered bruises on arms). denies: rashes Musculoskeletal: denies: pain, tenderness, swelling, arthritis/arthralgias Neurological: reports: weakness. denies: numbness, syncope Psychological: reports: depression. denies: anxiety - Vital signs BP: 121/70 HR: 105 RR: 15 Tmax: 98.3F Pox: 99% on RA Wt: 45 kg - Physical Exam Constitutional: NAD (But fatigued and weak appearing.), awake, alert and oriented, other (appears chronically ill and thin) HEENT: normocephalic and atraumatic, PERRLA, EOMI, conjunctiva clear, no scleral icterus, grossly normal vision, TM's clear and intact, grossly normal hearing, normal nasal mucosa, MMM, oropharynx clear, good dention, other (ulcer located under tongue & on roof of mouth) Neck: supple, FROM, trachea midline, no JVD Chest: no-tender to palpation Heart: RRR, normal S1/S2, no murmurs/rubs/gallops, pulses present -Heart: Bilateral lower extremities have 1+ pitting edema Lungs: CTAB, no respiratory distress (Speaks in complete sentences without pauses. Voice weak.), good air movement, no wheezing -Lungs: Limited posterior exam due to patient's weakness and discomfort. No gross pathology appreciated. Abdomen: soft, bowel sounds present -Abdomen: tender to palpation across epigastric and mid-abdomen Musculoskeletal: normal structure, ROM grossly normal Neurological: no focal deficit, normal sensation Skin: good turgor, no jaundice -Skin: Scattered abrasions and skin tears on bilateral arms. Heme/Lymphatic: no unusual bruising or bleeding Psychiatric: normal mood and affect, intact recent and remote memory FMR H&P: Results - Labs Result Diagrams: 11/21/18 12:03 11/21/18 12:03 Lab results: WBC 5.4 thou/uL (4.8-10.8) 11/21/18 12:03 Hgb 8.8 g/dL (12.0-16.0) L 11/21/18 12:03 Hct 27.3 % (36.0-47.0) L 11/21/18 12:03 MCV 95.4 fL (78.0-98.0) 11/21/18 12:03 Plt Count 220 thou/uL (130-400) 11/21/18 12:03 Neutrophils % 80.3 % (42.0-75.0) H 11/21/18 12:03 Sodium 135 mmol/L (136-145) L 11/21/18 12:03 Potassium 4.1 mmol/L (3.5-5.1) 11/21/18 12:03 Chloride 108 mmol/L (98-107) H 11/21/18 12:03 Carbon Dioxide 21 mmol/L (23-31) L 11/21/18 12:03 BUN 7 mg/dL (9.8-20.1) L 11/21/18 12:03 Creatinine 0.51 mg/dL (0.6-1.1) L 11/21/18 12:03 Glucose 103 mg/dL (80-115) 11/21/18 12:03 Lactic Acid 1.3 mmol/L (0.5-2.2) 11/21/18 12:03 Calcium 7.4 mg/dL (7.8-10.44) L 11/21/18 12:03 Total Bilirubin 0.8 mg/dL (0.2-1.2) 11/21/18 12:03 AST 33 U/L (5-34) 11/21/18 12:03 ALT 18 U/L (8-55) 11/21/18 12:03 Alkaline Phosphatase 184 U/L (40-150) H 11/21/18 12:03 Serum Total Protein 4.1 g/dL (6.0-8.3) L 11/21/18 12:03 Albumin 2.1 g/dL (3.4-4.8) L 11/21/18 12:03 - EKG Interpretation EKG: Sinus tachycardia - Radiology Interpretation Other Status: report reviewed by me (CTA with PE protocol: new pleural effusions, questionable infiltrate in posterior right lung base, mild atelectasis in left lung base) FMR H&P: A/P - Problem List (1) Fall (on) (from) unspecified stairs and steps, initial encounter Current Visit: Yes Status: Acute Code(s): W10.9XXA - FALL (ON) (FROM) UNSPECIFIED STAIRS AND STEPS, INIT ENCNTR (2) Dyspnea on minimal exertion Current Visit: Yes Status: Acute Code(s): R06.09 - OTHER FORMS OF DYSPNEA (3) GERD (gastroesophageal reflux disease) Current Visit: Yes Status: Acute Code(s): K21.9 - GASTRO-ESOPHAGEAL REFLUX DISEASE WITHOUT ESOPHAGITIS (4) Mouth ulcer Current Visit: Yes Status: Acute (5) Glaucoma Current Visit: Yes Status: Acute Code(s): H40.9 - UNSPECIFIED GLAUCOMA (6) Osteoporosis Current Visit: Yes Status: Acute Code(s): M81.0 - AGE-RELATED OSTEOPOROSIS W /O CURRENT PATHOLOGICAL FRACTURE (7) Depression Current Visit: No Status: Chronic Code(s): F32.9 - MAJOR DEPRESSIVE DISORDER , SINGLE EPISODE, UNSPECIFIED Qualifiers: Depression Type: major depressive disorder Major depression episode severity: mild - Plan Patient is a 63 yo Female with PMHx Pancreatic Cancer currently on chemo/rad who is admitted for Hypoxia, Dyspnea, Recurrent Falls, & Weakness 1. Recurrent falls -likely secondary to hypoxia & generalized weakness s/p radiation therapy -will check BNP and Procal -Oncology consulted--await further recs from Dr. Fernandez -follow AM labs 2. Weakness -PT/OT consult -Anemia on CBC, iron studies pending -Orthostatics with vitals ordered 3. Hypoxia & Dyspnea on minimal exertion -CTA showed new pleural effusions, questionable infiltrate in posterior right lung base -CXR & Echo ordered -Incentive spirometry -consider Pulmonology consult in AM -Echo from Dec 2017 showed EF 55-60%, mild MVP, possible mass vs vegetation on aortic valve 5. GERD -continue home Protonix 6. Mouth ulcers -continue to monitor, likely due to side effect of chemo/rad 7. Glaucoma -continue home Latanoprost drops 8. Osteoporosis -continue home meds 9. Depression -continue home meds of Bupropion, Lorazepam 10. Pancreatic Cancer -currently being managed by Dr. Fernandez & [facility] -receiving chemo & radiation, with 14 of 28 radiation rounds completed -usually receives 1L of IVF on MWF, bloodwork usually on Tuesdays, radiation scheduled Tue through Tue Diet: Regular VTE: SCDs GI ppx: Protonix (home med) Code: FULL Dispo: Guarded, admitted to obs for further workup & evaluation. Will await further recs from Oncology. Anticipated LOS <72 hrs. FMR H&P: Upper Level - Pertinent history 63 yo F with pancreatic cancer currently undergoing chemo and radiation presents for multiple falls at home due to weakness. Patient reports she has fallen 7 times in the last three days, and three time in the past 24 hours. Last fall was unwitnessed, pt reports she fell onto the couch. Per daughter, patient desats to 70s and 80s while ambulating. Denies LOC, headache, vision changes, fevers. Reports diffuse weakness. Patient follows with oncologist Dr. Fernandez. - Pertinent findings Cardiac: RRR, no murmur Lungs: diminished breath sounds at bases, no crackles or wheezing Abdomen: +BS, tender to palpation in midepigastrium Extremities:1+ pitting edema bilat lower extremities, cap refill <[address] Chest: PE Ruled out, showed new small pleural effusions, atelectasis and/or possible infiltrate posterior right lung base - Plan Date/Time: 11/21/18 1459 #Falls 2/2 weakness vs hypoxia -Electrolytes within normal limits. No LOC. -Pt desats with movement/exertion -Weakness possibly 2/2 to patient's current chemo regimen -Orthostatic BPs ordered -PT/OT consulted -Appreciate Dr. Fernandez's recs #Hypoxia -Satting upper 90s on RA at rest; desats with ambulation: on admission sats were 70% after walking from the parking lot -CTA ruled out PE, showed small pleural effusions, atelectasis possible infiltrate -Procal to rule out infection. WBC wnl. -EF of 55-60% on echo done fall 2017 -Echo and BNP pending -ISS at bedside -Consult Pulmonology tomorrow #Pancreatic cancer -Patient states is stage 3 or 4. Currently undergoing chemo and radiation treatments -Consult patient's oncologist, Dr. Fernandez. Appreciate recommendations. Harman Kimball MD, have evaluated this patient and agree with findings/plan as outlined by internet systems administrator resident. Pertinent changes/additions are listed here. Addendum - Attending - Attending Attestation Date/Time: 11/21/18 1850 I personally evaluated the patient and discussed the management with Dr. Rodarte and Dr. Garcia I agree with the History, Examination, Assessment and Plan documented above with any addition or exceptions noted below. 63 yo female with locally advanced pancreatic adenocarcinoma presents after fall and progressive hypoxia. Patient dx in July with pancreatic cancer. Has completed a course of neoadjunctive chemo. Undergoing radiation therapy presently as treatment. Follows up with Dr. Fernandez. Was recently admitted in September for bile duct stent infection. Has recovered well from last hospitalization. Other complications during course have been anemia, mucositis, UTI, pain, and persistent N/V. She continues symptomatic treatment. Over the past week she has experienced progressive ORNELAS and hypoxia. This has now progressed with minimal activity. Improves with rest. O2 will go as low as 70% on room air even with standing up and worsens with walking. Patient barely able to walk 20 feet. Patient informed radiation oncologist last week at visit but was not this severe and work up was delayed. Patient has also experienced increased frequency of falls. Notes some numbness to LE. Fall today helped prompted visit to ER. No LOC. Denies other associated symptoms. VS, labs, imaging, record reviewed. Agree with PE as documented. 1. Advanced pancreatic adenocarcinoma with treatment related complications: Heme /Onc notified of admission. Will follow in AM. Continue to treat symptoms and help control side effects. - frequent falls: Weakness related to treatment and disease state. Unable to fully evaluated but likely mild neuropathy. Will need repeat LE neuro exam in AM to see if MRI indicated to rule out lesions. Orthostatic vitals ordered. PT consulted. Evaluate walking assistance at home - 4 point walker. - hypoxic respiratory distress: Continues to have progressive hypoxia with minimal activity. Will need O2 at home. PE ruled out. Small infiltrate on CT. No CXR needed for clarification. Procal added to help with infection vs other. No idenitied symptoms of pneumonia. No O2 required at rest. Some trouble with lying flat but BNP negative. Past ECHO in 2016 with preserved EF. Will repeat to see if structural changes but mainly to see if any evidence of pulm HTN. Consult pulm in AM as needed for help with etiology. Unsure of chemo regiment to review side effects. Awaiting heme/onc call back. Supplemental O2 as needed. PRN bronchiodilator. Past hx of tobacco use but lungs look good on CT. Trop neg. Repeat pending x 1. IS to bedside due to CT findings. Lovenox started ppx. Monitor overnight. Heme/onc to see. Pulm as needed. ECHO pending. Procal pending. Trend labs. Brian
[2018-11-21] MEDS: HYDROcodone/Acetaminophen 7.5/325 mg Tablet PO PRN ×2 (16:17→20:01)
[2018-11-21] MEDS ORDERED: HYDROcodone/Acetaminophen 7.5/325 mg Tablet ONE (16:21)
[2018-11-21 17:57] LABS: Bacteria/HPF None Seen HPF (None Seen); Bilirubin Negative (Negative); Blood, Urine Negative (Negative); Clarity Clear (Clear); Glucose, Urine (Dipstick) Normal (Negative); Leukocyte 25 Leu/uL (Negative); Nitrite Negative (Negative); Protein, Urine (Dipstick) Negative (Neg-Trace); RBC/HPF 0-3 HPF (0-3); Squamous Epithelial None Seen HPF (0-3); Urobilinogen Normal mg/dL (Less than 2); WBC/HPF 0-3 HPF (0-3)
[2018-11-21] MEDS ORDERED: Acetaminophen 325 MG TAB PO PRN (18:20)
[2018-11-21] MEDS ORDERED: Senokot S 8.6-50 MG TAB PO PRN (18:20)
[2018-11-21] MEDS ORDERED: Ondansetron ODT 4 MG TAB PO PRN (18:20)
[2018-11-21] MEDS: Enoxaparin Sodium 40 MG/0.4 ML SYRINGE SC SCH ×2 (18:20→20:03)
--- NOTE | 2018-11-21 18:41 | RAD ---
CHEST TWO VIEWS: 11/21/2018 PROVIDED CLINICAL HISTORY: Dyspnea. COMPARISON: CT examination performed earlier on the same date. FINDINGS: The heart and mediastinal silhouette appears within normal limits. No focal consolidation or pneumot horax apparent. Bilateral pleural effusions are demonstrated. A right IJ implanted port is seen IMPRESSION: Small bilateral pleural effusions are redemonstrated. POS: OSEAS
[2018-11-21 19:48] LABS: Troponin I Less than 0.010 ng/mL (< 0.028)
[2018-11-21 20:29] VITALS: BMI 19.5
[2018-11-22] MEDS: HYDROcodone/Acetaminophen 7.5/325 mg Tablet PO PRN ×5 (01:25→21:55)
[2018-11-22 04:42] LABS: Band 3 % (5-11); Eosinophils 1 % (0-10); Hemoglobin 8.2 g/dL (12.0-16.0); Lymphocytes 15 % (21-51); MDiff Complete? YES; Mean Corpuscular HGB CONC 32.1 g/dL (32.0-36.0); Mean Corpuscular Hemoglobin 31.3 pg (27.0-31.0); Mean Corpuscular Volume 97.4 fL (78.0-98.0); Mean Platelet Volume 8.8 fL (7.4-10.4); Monocytes 16 % (0-10); Neutrophil 65 % (42-75); Platelet Count 182 thou/uL (130-400); Platelet Morphology Comment Appears Adequate; RBC Distribution Width 19.5 % (11.5-14.5); Red Blood Cell (RBC) Count 2.61 mill/uL (4.20-5.40)
[2018-11-22 04:43] LABS: ALT (SGPT) 16 U/L (8-55); AST (SGOT) 29 U/L (5-34); Albumin 1.8 g/dL (3.4-4.8); Alkaline Phosphatase 170 U/L (40-150); Anion Gap 10 mmol/L (10-20); BUN (Urea Nitrogen) 6 mg/dL (9.8-20.1); Bilirubin, Total 0.7 mg/dL (0.2-1.2); Calc. Creatinine Clearance 83 mL/min (70-130); Calcium 7.1 mg/dL (7.8-10.44); Carbon Dioxide 21 mmol/L (23-31); Chloride 111 mmol/L (98-107); Estimated GFR-MDRD Greater than 90; Glucose 66 mg/dL (80-115); Potassium 3.7 mmol/L (3.5-5.1); Protein, Total 3.8 g/dL (6.0-8.3); Sodium 138 mmol/L (136-145)
[2018-11-22] MEDS ORDERED: HYDROcodone/Acetaminophen 10/325 mg Tablet PO PRN ×2 (05:49→06:10)
[2018-11-22] MEDS ORDERED: ONDANSETRON HCL 8 MG PO PRN (05:49)
[2018-11-22] MEDS ORDERED: Lorazepam 0.5 MG TAB PO PRN (05:49)
--- NOTE | 2018-11-22 05:56 | PDOC.FM ---
- Subjective Subjective: Patient resting comfortably this morning, states she still feels weak especially in lower extremities. She says since Tuesday her left LE has felt weaker than her right LE. She states she still feels SOB whenever she has any exertion. With minimal exertion her O2 sat drops into the 70s or 80s, but goes back up to upper 90s very quickly with rest. Patient saw Oncology, Dr. Fernandez this morning and states that she thinks her weakness is due to malnutrition. Dr. Fernandez has ordered a dietary consult and plans to start the patient on PPN. Also plan to have her work with PT & OT this morning. - Objective MAR Reviewed: Yes Vital Signs & Weight: Vital Signs (12 hours) Temp Pulse Resp BP BP Pulse Ox 11/22/18 03:47 98.1 F 98 16 100/66 94 L 11/21/18 23:39 98.2 F 99 16 98/53 L 97 11/21/18 19:35 98.6 F 101 H 16 138/76 100 Weight Weight 48.591 kg Result Diagrams: 11/22/18 04:05 11/22/18 04:05 Phys Exam - Physical Examination Constitutional: NAD HEENT: moist MMs, sclera anicteric EOMI, vision grossly normal. Some difficulty initially with accomodation. Neck: no JVD, full ROM Respiratory: no wheezing, no rhonchi, clear to auscultation bilateral Cardiovascular: RRR, no significant murmur Gastrointestinal: soft, positive bowel sounds tender to palpation across mid abdomen Musculoskeletal: pulses present 1+ pitting edema in bilateral lower extremities Neurological: moves all 4 limbs Strength 3/5 in Left LE, 4/5 in right LE, 5/5 in bilateral UE CN II-XII grossly normal. Psychiatric: normal affect, A&O x 3 Skin: normal turgor Deviation from normal: Skin tears & abrasions scattered on upper extremities. Dx/Plan (1) Fall (on) (from) unspecified stairs and steps, initial encounter Code(s): W10.9XXA - FALL (ON) (FROM) UNSPECIFIED STAIRS AND STEPS, INIT ENCNTR Status: Acute (2) Dyspnea on minimal exertion Code(s): R06.09 - OTHER FORMS OF DYSPNEA Status: Acute (3) GERD (gastroesophageal reflux disease) Code(s): K21.9 - GASTRO-ESOPHAGEAL REFLUX DISEASE WITHOUT ESOPHAGITIS Status: Acute (4) Mouth ulcer Status: Acute (5) Glaucoma Code(s): H40.9 - UNSPECIFIED GLAUCOMA Status: Acute (6) Osteoporosis Code(s): M81.0 - AGE-RELATED OSTEOPOROSIS W/O CURRENT PATHOLOGICAL FRACTURE Status: Acute (7) Depression Code(s): F32.9 - MAJOR DEPRESSIVE DISORDER, SINGLE EPISODE, UNSPECIFIED Status : Chronic Qualifiers: Depression Type: major depressive disorder Major depression episode severity: mild (8) Acute respiratory failure with hypoxia Code(s): J96.01 - ACUTE RESPIRATORY FAILURE WITH HYPOXIA Status: Acute - Plan Plan: Patient is a 63 yo Female with PMHx Pancreatic Cancer currently on chemo/rad who is admitted for Hypoxia, Dyspnea, Recurrent Falls, & Weakness 1. Recurrent falls -likely secondary to hypoxia & generalized weakness s/p radiation therapy -BNP 42.9 and Procal 0.14 -Oncology consulted--await further recs from Dr. Fernandez -follow AM labs 2. Weakness -PT/OT consult -Anemia on CBC with Hgb steady at 8.2, WBC 5.4-> 3.0 this AM -Orthostatics with vitals ordered -Dietary consult ordered, plan to start PPN today 3. Acute Respiratory Failure with Hypoxia -hypoxia & Dyspnea on minimal exertion -CTA showed new pleural effusions, questionable infiltrate in posterior right lung base -CXR showed mild pleural effusions -Echo ordered -Incentive spirometry q1hr at bedside while awake -consider Pulmonology consult in AM -Echo from Dec 2017 showed EF 55-60%, mild MVP, possible mass vs vegetation on aortic valve 5. GERD -continue home Protonix 6. Mouth ulcers -continue to monitor, likely due to side effect of chemo/rad 7. Glaucoma -continue home Latanoprost drops 8. Osteoporosis -continue home meds 9. Depression -continue home meds of Bupropion, Lorazepam 10. Pancreatic Cancer -currently being managed by Dr. Fernandez & [facility] -receiving chemo & radiation, with 14 of 28 radiation rounds completed -usually receives 1L of IVF on MWF, bloodwork usually on Tuesdays, radiation scheduled Tue through Tue -will consider MRI to look for metastatic lesions if repeat neuro exam in AM is abnormal Diet: Regular VTE: SCDs GI ppx: Protonix (home med) Code: FULL Dispo: Guarded, admitted to obs for further workup & evaluation. Will await further recs from Oncology. Anticipated LOS <72 hrs. Addendum - Attending - Attending Attestation Date/Time: 11/22/18 3385 I personally evaluated the patient and discussed the management with Dr. Rodarte. I agree with the History, Examination, Assessment and Plan documented above with any addition or exceptions noted below. Patinet here with increasing weakness and falls in setting of advanced malignancy. Her nutrition status is poor and she is deconditioned. Onc on board and recommends PPN for now. Will consult therapy services. It does not appear she has an infection of any significant kind at this time.
[2018-11-22] MEDS ORDERED: Zolpidem Tartrate 5 MG TAB PO PRN (06:15)
[2018-11-22] MEDS: buPROPion 75 MG TAB PO SCH ×2 (08:47→20:50)
[2018-11-22] MEDS: Enoxaparin Sodium 40 MG/0.4 ML SYRINGE SC SCH ×2 (08:47→09:02)
[2018-11-22] MEDS: Potassium Chloride 20 MEQ TAB PO SCH (08:48)
[2018-11-22] MEDS ORDERED: Scopolamine 1.5 mg/72 hour Patch TOP SCH (09:00)
[2018-11-22] MEDS: Dronabinol 2.5 MG CAP PO SCH ×2 (09:47→21:00)
[2018-11-22] MEDS: Ondansetron ODT 8 MG TAB PO PRN ×2 (13:10→20:50)
--- NOTE | 2018-11-22 14:41 | CON ---
DATE OF CONSULTATION: 11/22/2018 HISTORY OF PRESENT ILLNESS: Ms. Nunes is a 63-year-old female with a history of locally-advanced pancreatic cancer, who completed neoadjuvant chemotherapy with FOLFIRINOX over a month ago and has now been receiving sequential radiation in [place]. She has approximately 2 weeks left of radiation, but over the last week, has grown increasingly weak. She had several falls over the weekend, and she fell significantly on the day of admission. Her daughter is a nurse practitioner and did check a pulse oximeter on her, her oxygen saturation was in the 80s at home because this patient was brought to the emergency room. She was so weak, she could not get to the restroom. She admits to not eating or drinking very much. Her weight has been stable, but she has lost 20 or 30 pounds in the last 6 months. She denies any significant pain. She has some chronic mid epigastric discomfort, but currently is not requiring narcotics. She does not think that she broke any bones with falling. She does have several skin tears on her arms. She did not hit her head. She has no visual changes. No headaches. No fevers or chills. No blood loss. PAST MEDICAL HISTORY: 1. Locally advanced, stage III pancreatic cancer. 2. Depression. 3. Hypertension. CURRENT MEDICATIONS: 1. Ambien 10 mg p.o. at bedtime p.r.n. 2. Senokot two tabs p.o. b.i.d. p.r.n. 3. Scopolamine patch 1.5 topical q.3 days. 4. Phenergan 25 mg p.o. q.6 hours p.r.n. 5. K-Dur 20 mEq p.o. daily. 6. Protonix 40 mg p.o. daily. 7. Zofran 8 mg p.o. q.6 hours p.r.n. 8. Ativan 0.5 mg p.o. q.6 hours p.r.n. 9. Fentanyl patch 25 mcg transdermal q.3 days. 10. Lovenox 40 mg subcu daily. 11. Marinol 5 mg p.o. b.i.d. 12. Wellbutrin 150 mg p.o. b.i.d. 13. [place] 10/325 one p.o. q.4 hours p.r.n. ALLERGIES: CIPRO, DULOXETINE, LEVOFLOXACIN, AND TERIPARATIDE. SOCIAL HISTORY: She lives in the [place] area. She has a family who is quite supportive including daughters and her . 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 She denies alcohol use. She does have history of tobacco use. REVIEW OF SYSTEMS: Otherwise, 10-point review of systems is negative. PHYSICAL EXAMINATION: VITAL SIGNS: Temperature 98.1, pulse 98, respirations 16, O2 saturation 94% on room air, and blood pressure 100/66. GENERAL: She is alert, awake, and oriented x3, is in no acute distress. She is quite pleasant, somewhat cachectic. HEENT: Sclerae are anicteric. NECK: Supple without lymphadenopathy. CARDIOVASCULAR: Regular rhythm. LUNGS: Clear to auscultation anteriorly. ABDOMEN: Hypoactive bowel sounds. Soft, nontender. No distention. EXTREMITIES: No edema. She does have multiple abrasions with some skin tears on her forearms, no obvious ecchymoses. LABORATORY DATA: White blood cell count 3.0, hemoglobin 8.2, and platelets 182. Sodium 138, potassium 3.7, chloride 111, CO2 of 21, BUN 6, creatinine 0.5, glucose 66, calcium 7.1, alkaline phosphatase 170, total protein 3.8, albumin 1.8. Globulin 2.0. CT angiogram done in the emergency room showed no evidence of pulmonary embolism. ASSESSMENT: Ms. Nunes is a 63-year-old female with; 1. Locally-advanced pancreatic cancer. 2. Malnutrition. 3. Weakness and cachexia. 4. History of recent fall. 5. Deconditioning with difficulty ambulating. PLAN: 1. She is already getting IV fluids and feeling marginally better. 2. Start PPN. 3. Physical therapy. 4. Follow blood counts and potassium. 5. I will discuss the case with the radiation oncologist, and we will see when we can get her safely home to continue her radiation. Job ID: [id number]
[2018-11-22] MEDS ORDERED: [UNRECOGNIZED DRUG - REMARK] IV SCH (17:00)
[2018-11-22] MEDS: D5W-AA 4.25% with LYTES 1,000 ML IV SCH (17:39)
[2018-11-22] MEDS ORDERED: Non-Formulary Item 1 EACH (Latanoprost/Pf [Latanoprost 0.005% Eye Drop] 1 DROP) EA EYE SCH (21:00)
[2018-11-22] MEDS ORDERED: Non-Formulary Item 1 EACH (Eszopiclone [Lunesta] 3 MG) PO SCH (21:00)
[2018-11-22] MEDS: Latanoprost 0.005% Ophth Soln 2.5 ml Bottle EA EYE SCH (21:01)
[2018-11-23] MEDS: D5W-AA 4.25% with LYTES 1,000 ML IV SCH ×3 (01:57→19:22)
[2018-11-23 04:08] LABS: ALT (SGPT) 15 U/L (8-55); AST (SGOT) 28 U/L (5-34); Albumin 1.7 g/dL (3.4-4.8); Alkaline Phosphatase 164 U/L (40-150); Anion Gap 7 mmol/L (10-20); BUN (Urea Nitrogen) 7 mg/dL (9.8-20.1); Bilirubin, Total 0.6 mg/dL (0.2-1.2); Calc. Creatinine Clearance 80 mL/min (70-130); Calcium 7.1 mg/dL (7.8-10.44); Carbon Dioxide 23 mmol/L (23-31); Chloride 107 mmol/L (98-107); Estimated GFR-MDRD Greater than 90; Globulin 1.9 g/dL (2.4-3.5); Glucose 157 mg/dL (80-115); Potassium 4.2 mmol/L (3.5-5.1); Protein, Total 3.6 g/dL (6.0-8.3); Sodium 133 mmol/L (136-145)
[2018-11-23 04:17] LABS: #Eosinphils 0.1 thou/uL (0.0-0.7); #Lymphocytes 0.4 thou/uL (1.20-3.40); #Monocytes 0.5 thou/uL (0.11-0.59); #Neutrophils 2.8 thou/uL (1.40-6.50); %Basophils 0.6 % (0.0-1.0); %Eosinophils 1.4 % (0.0-10.0); %Lymphocytes 10.3 % (21.0-51.0); %Neutrophils 73.6 % (42.0-75.0); Elliptocytes SLIGHT = 2-5 cells (100X) (0-1/hpf); Hemoglobin 8.5 g/dL (12.0-16.0); Hypochromia SLIGHT = 6-15 cells (100X) (0-5/hpf); MDiff Complete? YES; Mean Corpuscular HGB CONC 31.9 g/dL (32.0-36.0); Mean Corpuscular Hemoglobin 31.4 pg (27.0-31.0); Mean Corpuscular Volume 98.5 fL (78.0-98.0); Mean Platelet Volume 8.9 fL (7.4-10.4); Platelet Count 161 thou/uL (130-400); Platelet Morphology Comment Appears Adequate; Target Cells SLIGHT = 2-5 cells (100X) (0-1/hpf); White Blood Cell (WBC) Count 3.8 thou/uL (4.8-10.8)
--- NOTE | 2018-11-23 05:53 | PDOC.FM ---
- Subjective Subjective: Patient resting comfortably in bed this morning. States that she was able to work with PT yesterday, but was unable to walk extended distances. PPN has been started by dietary. Patient still wants to eat regular food as tolerated as well. Patient says she feels a little stronger today but still very weak. - Objective Vital Signs & Weight: Vital Signs (12 hours) Temp Pulse Resp BP Pulse Ox 11/22/18 20:00 98 11/22/18 19:44 99.1 F 102 H 16 106/70 98 Weight Admit Weight 48.534 kg Weight 48.591 kg I&O: 11/21/18 11/22/18 11/23/18 06:59 06:59 06:59 Intake Total 50 600 Balance 50 600 Result Diagrams: 11/23/18 03:36 11/23/18 03:36 Phys Exam - Physical Examination Constitutional: NAD HEENT: moist MMs, sclera anicteric Neck: no JVD, supple, full ROM Respiratory: no wheezing, no rales, no rhonchi, clear to auscultation bilateral Cardiovascular: RRR, no significant murmur Gastrointestinal: soft, positive bowel sounds TTP in epigastric/mid abdomen area. Musculoskeletal: pulses present 1+ pitting edema in lower extremities Neurological: normal sensation, moves all 4 limbs Strength 4/5 in bilateral lower extremities Appears slightly stronger compared to yesterday Psychiatric: normal affect, A&O x 3 Skin: no rash, normal turgor Deviation from normal: skin tears present on arms Dx/Plan (1) Fall (on) (from) unspecified stairs and steps, initial encounter Code(s): W10.9XXA - FALL (ON) (FROM) UNSPECIFIED STAIRS AND STEPS, INIT ENCNTR Status: Acute (2) Dyspnea on minimal exertion Code(s): R06.09 - OTHER FORMS OF DYSPNEA Status: Acute (3) GERD (gastroesophageal reflux disease) Code(s): K21.9 - GASTRO-ESOPHAGEAL REFLUX DISEASE WITHOUT ESOPHAGITIS Status: Acute (4) Mouth ulcer Status: Chronic (5) Glaucoma Code(s): H40.9 - UNSPECIFIED GLAUCOMA Status: Acute (6) Osteoporosis Code(s): M81.0 - AGE-RELATED OSTEOPOROSIS W/O CURRENT PATHOLOGICAL FRACTURE Status: Acute (7) Depression Code(s): F32.9 - MAJOR DEPRESSIVE DISORDER, SINGLE EPISODE, UNSPECIFIED Status : Chronic Qualifiers: Depression Type: major depressive disorder Major depression episode severity: mild (8) Acute respiratory failure with hypoxia Code(s): J96.01 - ACUTE RESPIRATORY FAILURE WITH HYPOXIA Status: Acute - Plan Plan: Patient is a 63 yo Female with PMHx Pancreatic Cancer currently on chemo/rad who is admitted for Acute hypoxic respiratory failure, Recurrent Falls, & Weakness 1. Recurrent falls -likely secondary to hypoxia & generalized weakness s/p radiation therapy -BNP 42.9 and Procal 0.14 -Oncology consulted--Dr. Fernandez recommends starting PPN, will consult with radiation oncologist to see when patient can be safely returned home, started pt on D5W @ 125 ml/hr, thinks weakness & falls is secondary to malnutrition & deconditioning -follow AM labs 2. Weakness -PT/OT consult--recommend continued PT while in hospital, OT recommends possible rehab placement due to multiple falls but acknowledges patient able to complete ADLs at home with help from -Anemia on CBC with Hgb steady at 8.5 today, WBC 5.4-> 3.0 -> 3.8 this AM -Orthostatics with vitals ordered--appear to not have postural-related hypotension, will call to clarify results with RN -Dietary consult ordered: recommend plan to start PPN or TPN, continue regular diet, start Ensure Clear supplements TID 3. Acute Respiratory Failure with Hypoxia -hypoxia & Dyspnea on minimal exertion -CTA showed new pleural effusions, questionable infiltrate in posterior right lung base -CXR showed mild pleural effusions -Echo ordered with results pending -Incentive spirometry q1hr at bedside while awake -Echo from Dec 2017 showed EF 55-60%, mild MVP, possible mass vs vegetation on aortic valve 5. GERD -continue home Protonix 6. Mouth ulcers -continue to monitor, likely due to side effect of chemo/rad 7. Glaucoma -continue home Latanoprost drops 8. Osteoporosis -continue home meds 9. Depression -continue home meds of Bupropion, Lorazepam 10. Pancreatic Cancer -currently being managed by Dr. Fernnadez & [facility] -receiving chemo & radiation, with 14 of 28 radiation rounds completed -usually receives 1L of IVF on MWF, bloodwork usually on Tuesdays, radiation scheduled Tue through Tue -will consider MRI to look for metastatic lesions, repeat neuro exam on 11/22 was abnormal but similar to admission exam, will let Dr. Fernandez decide if MRI is warranted at this time Diet: Regular VTE: SCDs, Lovenox--checking anti-10A level due at 1:00PM because currently at therapeutic level GI ppx: Protonix (home med) Code: FULL Dispo: Stable, admitted to inpatient for further workup & evaluation. Will await further recs from Oncology. Anticipated LOS <72 hrs. Addendum - Attending - Attending Attestation Date/Time: 11/23/18 4910 I personally evaluated the patient and discussed the management with Dr. Rodarte. I agree with the History, Examination, Assessment and Plan documented above with any addition or exceptions noted below. Patient improved. Working with PT. Continues on PPN. We are working on outpatient TPN and therapy. She is feeling better today.
[2018-11-23] MEDS: Ondansetron ODT 8 MG TAB PO PRN ×2 (09:00→17:15)
[2018-11-23] MEDS: HYDROcodone/Acetaminophen 7.5/325 mg Tablet PO PRN ×2 (09:02→17:13)
[2018-11-23] MEDS: buPROPion 75 MG TAB PO SCH ×2 (09:04→21:13)
[2018-11-23] MEDS: Potassium Chloride 20 MEQ TAB PO SCH (09:04)
[2018-11-23] MEDS: Dronabinol 2.5 MG CAP PO SCH ×2 (09:45→21:12)
--- NOTE | 2018-11-23 12:05 | PDOC.MOPN ---
Interval History: States feels better. Only ate few bites today. PPN continues. Mouth still sore. - Vital Signs Vital Signs: Vital Signs (12 hours) Temp Pulse Resp BP BP BP Pulse Ox 11/23/18 07:15 98.5 F 97 16 113/63 95 11/23/18 07:00 98.2 F 116 H 18 96/54 L 95/60 98/54 L 98 Weight Admit Weight 107 lb Weight 107 lb 2 oz - Physical Exam General: Alert, Oriented x3, No acute distress HEENT: Atraumatic, PERRLA, EOMI Lungs: Clear to auscultation, Normal air movement Cardiovascular: Regular rate, Normal S1, Normal S2, No murmurs, Gallops, Rubs Abdomen: Normal bowel sounds, Soft, No tenderness, No hepatospenomegaly, No masses Extremities: No clubbing, No cyanosis, No edema, Normal pulses, No tenderness/ swelling Skin: No rashes, No breakdown, No significant lesion Neurological: Normal speech Psych/Mental Status: Mental status NL - Labs Result Diagrams: 11/23/18 03:36 11/23/18 03:36 Lab results: Laboratory Results - last 24 hr 11/23/18 03:36: Sodium 133 L, Potassium 4.2, Chloride 107, Carbon Dioxide 23, Anion Gap 7 L, BUN 7 L, Creatinine 0.55 L, Estimated GFR (MDRD) Greater than 90 , Glucose 157 H, Calcium 7.1 L, Total Bilirubin 0.6, AST 28, ALT 15, Alkaline Phosphatase 164 H, Serum Total Protein 3.6 L, Albumin 1.7 L, Globulin 1.9 L, Albumin/Globulin Ratio 0.9 L 11/23/18 03:36: WBC 3.8 L, RBC 2.70 L, Hgb 8.5 L, Hct 26.6 L, MCV 98.5 H, MCH 31.4 H, MCHC 31.9 L, RDW 19.0 H, Plt Count 161, MPV 8.9, Neutrophils % 73.6, Neutrophils % (Manual) Not Reportable, Lymphocytes % 10.3 L, Monocytes % 14.0 H , Eosinophils % 1.4, Basophils % 0.6, Neutrophils # 2.8, Lymphocytes # 0.4 L, Monocytes # 0.5, Eosinophils # 0.1, Basophils # 0.0, Hypochromia SLIGHT = 6-15 cells, Plt Morphology Comment Appears Adequate, Target Cells SLIGHT = 2-5 cells , Elliptocytes SLIGHT = 2-5 cells 11/22/18 08:53: CA 19-9 Antigen 811 H Status: lab reviewed by me A/P - Problem (1) Malnutrition Current Visit: Yes Code(s): E46 - UNSPECIFIED PROTEIN-CALORIE MALNUTRITION Status: Acute (2) Mouth ulcer Current Visit: Yes Status: Chronic (3) Pancreatic adenocarcinoma Current Visit: No Code(s): C25.9 - MALIGNANT NEOPLASM OF PANCREAS, UNSPECIFIED Status: Chronic - Plan Plan: Continue magic mouthwash. CM for assistance with TPN at home continue PPN. Physical therapy
--- NOTE | 2018-11-23 13:20 | PQF ---
Date: 11-23-18 ATTN: DR. HUMPHREY MAJANO Please exercise your independent, professional judgment in responding to the clarification form. Clinical indicators are provided on the bottom of this form for your review Please check appropriate box(s): [ X ] Protein Calorie Malnutrition: [ ] Mild [ X ] Moderate [ ] Severe [ ] Other Malnutrition (please specify) __ [ ] Other diagnosis [ ] Unable to determine In addition, please specify: Present on Admission (POA): [ X ] Yes [ ] No [ ] Unable to determine CLINICAL INDICATORS - SIGNS / SYMPTOMS / LABS H&P: FATIGUED AND WEAK APPEARING, APPEARS CHRONICALLY ILL AND THIN PN DR. HUMPHREY MAJANO 11-21-18: RACHEAL THINKS HER WEAKNESS IS DUE TO MALNUTRITION, DR. SPRINGER HAS ORDERED A DIETARY CONSULT AND PLANS TO START THE PATIENT ON PPN. ALSO PLAN TO HAVE HER WORK WITH PT & OT THIS MORNING. HER NUTRITION STATUS IS POOR AND SHE IS DECONDITIONED. CONSULT NOTE DR. SPRINGER 11-22-18: SHE ADMITS TO NOT EATING OR DRINKING VERY MUCH. SHE HAS LOST 20 OR 30 POUNDS IN THE LAST 6 MONTHS. SOMEWHAT CACHECTIC, MALNUTRITION, DECONDITIONING WITH DIFFICULTY AMBULATING, START PPN DIETARY CONSULT 11-22-18: The patient reported that she only eats 2-3 bites per meal and has been eating like that for the past month. She has had constant nausea, but no vomiting.She has had a hard time swallowing pills and bread seems to ball up. She stated that she has had sores in her mouth, The patient has lost about 40# since August when she weighed ~143#. ~26% weight loss over 3 months with <25% of needs consumed x 1 month and moderate to severe wasting observed, 2+ pitting edema noted suggestive of severe malnutrition in the context of a chronic illness. RISK FACTORS DIETARY CONSULT 11-22-18: PMH: pancreatic cancer on radiation, osteoporosis, depression, GERD, mouth ulcers, HTN, appendectomy, cholecystectomy; healing incision is noted to the left hand, last BM is unknown, 2+ pitting edema noted to the left foot trace edema is noted to the right foot moderate to severe temporal muscle wasting observed TREATMENT: DIETARY CONSULT 11-22-18: 1) Continue Regular diet. 2) Suggest Ensure Clear supplementation TID. 3) Recommend PPN with a rate of 125. 4) TPN of D30% (1000 ml) , AA 10% (1000 ml), and 20% (250 ml) with a goal rate of 80% would be adequate to closely meet the estimated needs. 5) Monitor lytes for refeeding syndrome. Moderate Malnutrition (in acute illness) Energy Intake: <75% of estimated energy requirement for > 7 days Weight Loss: 1-2%/1 week; 5%/ 1 month; 7.5%/3 months Other: mild body fat loss; mild muscle mass loss; mild fluid accumulation; Severe Malnutrition (in acute illness) Energy Intake: < 50% of estimated energy requirement for > 5 days Weight Loss: >1-2%/1 week; >5%/1 month; >7.5%/3 months Other: moderate body fat loss; moderate muscle mass loss; moderate- severe fluid accumulation; measurably reduced costumed character entertainer strength Moderate Malnutrition (in chronic illness) Energy Intake: <75% of estimated energy requirement for >1 month Weight Loss: 5%/1 month; 7.5%/3 months; 10%/6 months; 20%/1 year Other: mild body fat loss; mild muscle mass loss; mild fluid accumulation Severe Malnutrition (in chronic illness) Energy Intake: <75% of estimated energy requirement for >1 month Weight Loss: >5%/1 month; >7.5%/3 months; >10%/6 months; >20%/1 year Other: severe body fat loss; severe muscle mass loss; severe fluid accumulation ; measurably reduced costumed character entertainer strength (This form is maintained as a part of the permanent medical record) 2014 [employer] All Rights Reserved DENYS [email or web address] Office: [phone] [facility]
[2018-11-23] MEDS: Promethazine 25 MG TAB PO PRN (19:35)
[2018-11-23] MEDS: Latanoprost 0.005% Ophth Soln 2.5 ml Bottle EA EYE SCH (21:16)
[2018-11-24] MEDS: Ondansetron ODT 8 MG TAB PO PRN ×2 (03:36→09:19)
[2018-11-24] MEDS: D5W-AA 4.25% with LYTES 1,000 ML IV SCH ×2 (03:37→13:32)
[2018-11-24 04:12] LABS: ALT (SGPT) 9 U/L (8-55); AST (SGOT) 23 U/L (5-34); Albumin 1.8 g/dL (3.4-4.8); Alkaline Phosphatase 162 U/L (40-150); Anion Gap 7 mmol/L (10-20); BUN (Urea Nitrogen) 9 mg/dL (9.8-20.1); Bilirubin, Total 0.5 mg/dL (0.2-1.2); Calc. Creatinine Clearance 94 mL/min (70-130); Calcium 7.7 mg/dL (7.8-10.44); Carbon Dioxide 27 mmol/L (23-31); Chloride 104 mmol/L (98-107); Estimated GFR-MDRD Greater than 90; Glucose 116 mg/dL (80-115); Protein, Total 3.8 g/dL (6.0-8.3); Sodium 133 mmol/L (136-145)
[2018-11-24 04:39] LABS: Band 6 % (5-11); Eosinophils 1 % (0-10); Hemoglobin 8.2 g/dL (12.0-16.0); Lymphocytes 8 % (21-51); MDiff Complete? YES; Mean Corpuscular HGB CONC 32.7 g/dL (32.0-36.0); Mean Corpuscular Volume 97.7 fL (78.0-98.0); Mean Platelet Volume 9.1 fL (7.4-10.4); Monocytes 12 % (0-10); Neutrophil 73 % (42-75); Platelet Count 149 thou/uL (130-400); RBC Distribution Width 18.6 % (11.5-14.5); Red Blood Cell (RBC) Count 2.58 mill/uL (4.20-5.40); White Blood Cell (WBC) Count 3.6 thou/uL (4.8-10.8)
[2018-11-24] MEDS: HYDROcodone/Acetaminophen 7.5/325 mg Tablet PO PRN ×2 (04:49→09:19)
--- NOTE | 2018-11-24 06:08 | PDOC.FM ---
- Subjective Subjective: Patient resting comfortably in bed this morning, easily awakens and in pleasant mood. Still complains of weakness. Also has had worsened nausea over past 24 hours, which is somewhat relieved by Zofran & Phenergan. She believes this started shortly after TPN was initiated. She voices that she wants to go home with continued care by [facility]. Oncology recommends home TPN and patient will receive this with [facility] at home, with her insurance covering 100%. When patient worked with PT yesterday her O2 sat decreased to 76- 85% with exertion, but quickly returned to upper 90s with rest. PT recommends continued PT therapy with home health. - Objective Vital Signs & Weight: Vital Signs (12 hours) Temp Pulse Resp BP BP BP BP 11/23/18 20:00 109/60 112/65 111/61 11/23/18 19:35 11/23/18 19:14 98.3 F 100 16 118/59 L Pulse Ox 11/23/18 20:00 11/23/18 19:35 96 11/23/18 19:14 96 Weight Admit Weight 48.534 kg Weight 48.591 kg I&O: 11/22/18 11/23/18 11/24/18 06:59 06:59 06:59 Intake Total 50 840 1875 Balance 50 840 1875 Result Diagrams: 11/24/18 03:40 11/24/18 03:40 Phys Exam - Physical Examination Constitutional: NAD HEENT: moist MMs, sclera anicteric ulcer under right tongue, red macules on roof of mouth Neck: no JVD, supple Respiratory: no wheezing, no rhonchi, clear to auscultation bilateral Cardiovascular: RRR, no significant murmur Gastrointestinal: soft, positive bowel sounds tender to palpation over epigastric area Musculoskeletal: pulses present 1+ edema in bilateral lower extremities 4/5 strength in lower extremities, 5/5 strength in upper extremities Neurological: normal sensation, moves all 4 limbs Psychiatric: normal affect, A&O x 3 Skin: no rash, normal turgor Dx/Plan (1) Fall (on) (from) unspecified stairs and steps, initial encounter Code(s): W10.9XXA - FALL (ON) (FROM) UNSPECIFIED STAIRS AND STEPS, INIT ENCNTR Status: Acute (2) Dyspnea on minimal exertion Code(s): R06.09 - OTHER FORMS OF DYSPNEA Status: Acute (3) GERD (gastroesophageal reflux disease) Code(s): K21.9 - GASTRO-ESOPHAGEAL REFLUX DISEASE WITHOUT ESOPHAGITIS Status: Acute (4) Mouth ulcer Status: Chronic (5) Glaucoma Code(s): H40.9 - UNSPECIFIED GLAUCOMA Status: Acute (6) Osteoporosis Code(s): M81.0 - AGE-RELATED OSTEOPOROSIS W/O CURRENT PATHOLOGICAL FRACTURE Status: Acute (7) Depression Code(s): F32.9 - MAJOR DEPRESSIVE DISORDER, SINGLE EPISODE, UNSPECIFIED Status : Chronic Qualifiers: Depression Type: major depressive disorder Major depression episode severity: mild (8) Acute respiratory failure with hypoxia Code(s): J96.01 - ACUTE RESPIRATORY FAILURE WITH HYPOXIA Status: Acute - Plan Plan: Patient is a 63 yo Female with PMHx Pancreatic Cancer currently on chemo/rad who is admitted for Acute hypoxic respiratory failure, Recurrent Falls, & Weakness 1. Recurrent falls -likely secondary to hypoxia & generalized weakness s/p radiation therapy -BNP 42.9 and Procal 0.14 -Oncology consulted--Dr. Fernandez recommends starting PPN, will consult with radiation oncologist to see when patient can be safely returned home, started pt on D5W @ 125 ml/hr, thinks weakness & falls is secondary to malnutrition & deconditioning --> on 11/23 Dr. Fernandez recommended switching to TPN which was then started with anticipation of going home on TPN -follow AM labs 2. Weakness -PT/OT consult--recommend continued PT while in hospital, OT recommends possible rehab placement due to multiple falls but acknowledges patient able to complete ADLs at home with help from , will plan for continued PT with home health -Anemia on CBC with Hgb steady at 8.2 today, WBC 5.4-> 3.0 -> 3.8 ->3.6 this AM -Orthostatics with vitals ordered--appear to not have postural-related hypotension -Dietary consult ordered: recommend plan to start PPN or TPN, continue regular diet, start Ensure Clear supplements TID 3. Acute Respiratory Failure with Hypoxia -hypoxia & Dyspnea on minimal exertion, still desat to 70s & 80s while working with PT -CTA showed new pleural effusions, questionable infiltrate in posterior right lung base -CXR showed mild pleural effusions -Echo ordered-- EF 55-60%, thickened aortic valve leaflets, small circumferential pericardial effusion with no tamponade--will instruct patient to follow up with her outpatient [employer] Dr. Womack -Incentive spirometry q1hr at bedside while awake -Echo from Dec 2017 showed EF 55-60%, mild MVP, possible mass vs vegetation on aortic valve 5. GERD -continue home Protonix 6. Mouth ulcers -continue to monitor, likely due to side effect of chemo/rad -Magic mouthwash ordered 7. Glaucoma -continue home Latanoprost drops 8. Osteoporosis -continue home meds 9. Depression -continue home meds of Bupropion, Lorazepam 10. Pancreatic Cancer -currently being managed by Dr. Fernandez & [facility] -receiving chemo & radiation, with 14 of 28 radiation rounds completed -usually receives 1L of IVF on , bloodwork usually on Tuesdays, radiation scheduled Tue through Tue -will consider MRI to look for metastatic lesions, repeat neuro exam on 11/22 was abnormal but similar to admission exam, will let Dr. Fernandez decide if MRI is warranted at this time Diet: Regular VTE: SCDs, Lovenox-- anti-10A level 0.25 on 11/23 (currently at sub-therapeutic level) GI ppx: Protonix (home med) Code: FULL Dispo: Stable, admitted to inpatient for further workup & evaluation. Oncology okay patient to discharge home today, follow up with Jim on 12/08 @ 10AM, they also recommend pt contact radiation oncologist in [place] to resume tx after d/c. Anticipated discharge home today [id number] after patient has met with rep from [facility] for training on home TPN. Will call Case Management team today to make sure Home Health services have been set up. Addendum - Attending - Attending Attestation Date/Time: 11/24/18 1101 I personally evaluated the patient and discussed the management with Dr. Rodarte. I agree with the History, Examination, Assessment and Plan documented above with any addition or exceptions noted below. Patient overall doing improved, having some nausea currently. She has been approved for HH with PT and outpatient TPN. Oncology is satisfied with her progress and we anticipate discharge hopefully today with TPN at home and therapy. Follow ups have been set up for her.
[2018-11-24] MEDS: Enoxaparin Sodium 40 MG/0.4 ML SYRINGE SC SCH (09:14)
[2018-11-24] MEDS: Dronabinol 2.5 MG CAP PO SCH (09:14)
[2018-11-24] MEDS: buPROPion 75 MG TAB PO SCH (09:14)
[2018-11-24] MEDS: Potassium Chloride 20 MEQ TAB PO SCH (09:14)
[2018-11-24 09:19] VITALS: BP 122/75; TEMP 98.2
[2018-11-24] MEDS: Promethazine 25 MG TAB PO PRN (11:01)
[2018-11-24] MEDS ORDERED: Promethazine HCl 25 MG/ML VIAL IM/IV PRN (11:05)
[2018-11-24] MEDS ORDERED: Ondansetron PF 4 MG/2 ML Vial IVP PRN (11:06)
--- NOTE | 2018-11-24 16:11 | PDOC.MOPN ---
Interval History: complains of nausea today. - Vital Signs Vital Signs: Vital Signs (12 hours) Temp Pulse Resp BP Pulse Ox 11/24/18 08:00 98.2 F 95 18 122/75 96 Weight Admit Weight 107 lb 2 oz Weight 107 lb 2 oz - Physical Exam General: Alert, Oriented x3, No acute distress HEENT: Atraumatic, PERRLA, EOMI, Mucous membr. moist/pink Lungs: Clear to auscultation, Normal air movement Cardiovascular: Regular rate, Normal S1, Normal S2, No murmurs, Gallops, Rubs Abdomen: Soft Extremities: No clubbing, No cyanosis, No edema, Normal pulses, No tenderness/ swelling Skin: No rashes, No breakdown, No significant lesion Neurological: Normal speech Psych/Mental Status: Mental status NL - Labs Result Diagrams: 11/24/18 03:40 11/24/18 03:40 Lab results: Laboratory Results - last 24 hr 11/24/18 03:40: Sodium 133 L, Potassium 5.0, Chloride 104, Carbon Dioxide 27, Anion Gap 7 L, BUN 9 L, Creatinine 0.47 L, Estimated GFR (MDRD) Greater than 90 , Glucose 116 H, Calcium 7.7 L, Total Bilirubin 0.5, AST 23, ALT 9, Alkaline Phosphatase 162 H, Serum Total Protein 3.8 L, Albumin 1.8 L, Globulin 2.0 L, Albumin/Globulin Ratio 0.9 L 11/24/18 03:40: WBC 3.6 L, RBC 2.58 L, Hgb 8.2 L, Hct 25.2 L, MCV 97.7, MCH 32.0 H, MCHC 32.7, RDW 18.6 H, Plt Count 149, MPV 9.1, Neutrophils % (Manual) 73 , Band Neuts % (Manual) 6, Lymphocytes % (Manual) 8 L, Monocytes % (Manual) 12 H , Eosinophils % (Manual) 1 Status: lab reviewed by me A/P - Problem (1) Malnutrition Current Visit: Yes Code(s): E46 - UNSPECIFIED PROTEIN-CALORIE MALNUTRITION Status: Acute (2) Mouth ulcer Current Visit: Yes Status: Chronic (3) Pancreatic adenocarcinoma Current Visit: No Code(s): C25.9 - MALIGNANT NEOPLASM OF PANCREAS, UNSPECIFIED Status: Chronic - Plan Plan: Patient approved for TPN at home Continue oral care resume XRT next week Follow-up Dr. Fernandez in 2 weeks
--- NOTE | 2018-11-26 02:24 | DIS ---
DATE OF ADMISSION: 11/21/2018 DATE OF DISCHARGE: 11/24/2018 RESIDENT: Toya Rodarte DO ADMITTING ATTENDING: Caroline Hazel MD DISCHARGE ATTENDING: Jose Bender MD CONSULTS: 1. Oncology, Zahida Fernandez MD. 2. Physical Therapy. 3. Occupational Therapy. 4. Case Management. PROCEDURES: 1. Chest/thorax CTA on November 21, 2018: no evidence of pulmonary embolus, new small pleural effusions have occurred, streaky atelectasis and/or infiltrates in the posterior right lung base is noted today, mild left basilar atelectasis is noted. 2. Chest x-ray on November 21, 2018: Small bilateral pleural effusions. 3. Echocardiogram on November 23, 2018: EF is estimated at 55% to 60%, normal size left atrium, left ventricle size is normal, aortic valve leaflets are somewhat thickened, mild to moderate tricuspid regurgitation, mild mitral regurgitation, small circumferential pericardial effusion without tamponade physiology. PRIMARY DIAGNOSES: 1. Fall secondary to weakness and malnutrition. 2. Acute Hypoxic Respiratory Distress SECONDARY DIAGNOSES: 1. Recurrent falls. 2. Pancreatic cancer, stage 3 3. Malnutrition, moderate. 4. Gastroesophageal reflux disease. 5. Mouth ulcers. 6. Glaucoma. 7. Osteoporosis. 8. Depression. DISCHARGE MEDICATIONS: 1. Bupropion/HCL 150 mg p.o. b.i.d. 2. Marinol 5 mg p.o. b.i.d. 3. Lunesta 3 mg p.o. at bedtime. 4. Fentanyl 25 mcg TD every 3 days. 5. [place] Lawrence 10/325 tablet, one each p.o. q.4 hours. 6. Latanoprost 0.005% eyedrops one drop each eye at bedtime. 7. Lorazepam 0.5 mg p.o. q.6 hours for anxiety, restlessness, sleep. 8. Ondansetron 8 mg p.o. q.6 hours p.r.n. for nausea. 9. Protonix 40 mg p.o. daily. 10. Potassium chloride 20 mEq p.o. daily. 11. Phenergan (promethazine) 25 mg p.o. q.6 hours p.r.n. for nausea. 12. Scopolamine 1.5 mg transdermal patch applied every 3 days. DISCONTINUED MEDICATIONS: 1. Acetaminophen 650 mg p.o. q.4 hours p.r.n. for [id number] pain. 2. [place] 7.5/325 two tabs p.o. q.4 hours p.r.n. for aihsdvug-bw-[id number] pain. 3. Clinimix E 4.25/5 x1 bag at 125 mL an hour. 4. Lovenox 40 mg subcu at 9 a.m. daily. 5. Ativan 0.5 mg p.o. q.6 hours p.r.n. for anxiety/restlessness/sleep. 6. Ondansetron 4 mg IV push q.6 hours p.r.n. for nausea and vomiting. 7. Phenergan (promethazine) 25 mg IV q.6 hours p.r.n. for nausea and vomiting. 8. Senna/docusate sodium 2 tabs p.o. b.i.d. p.r.n. for constipation. 9. Ambien 10 mg p.o. at bedtime p.r.n. for sleep. HISTORY OF PRESENT ILLNESS/HOSPITAL COURSE: Ms. Nunes is a 63-year-old female, who presented to the [facility] on November 21, 2018 after she had fallen at home. The fall was unwitnessed and occurred in the patient's home. The patient says she still has not felt weak and then fell down. She thinks she bumped her head when she fell. The patient's was home when she fell and was able to attend to her quickly after the fall. The patient states that she has fallen 3 times in the past 24 hours, and 7 times in the past week. The patient sometimes trips over things and then she falls. Other times, she says she feels weak and then is unable to remain standing, so she falls down. The patient denied loss of consciousness with falls, denied presyncopal symptoms including dizziness or vision changes. She also denied fever, chills, nausea, vomiting, stool changes, headache, vision or hearing changes, myalgia, or arthralgia. She stated she did have some occasional mid abdominal pain. The patient additionally reported that she had been feeling more short of breath in recent weeks. When her daughter, who is an [employer], takes her O2 saturation at home while resting, she is in the 90s. However, after walking a distance of about 20 feet, she has an O2 saturation in the 80s, which improves when she rests. Today when she came into the ER initially, she had an O2 saturation in the upper 70s. The patient was recently diagnosed with pancreatic cancer in July 2018. She was told recently that she is stage 3. She had 4 rounds of chemo done in August 2018. She is currently on radiation treatments Tuesday through Tuesday and is on dose 14 of 28. Radiation dosing was recently lowered due to patient's tolerance of the regimen. She usually receives 1 L of IV fluids on Mondays, Wednesdays, and Fridays and has blood work done on Tuesdays. Her Primary Oncologist is Dr. Fernandez, who she last saw 2 weeks ago. She has 2 other oncology physicians through [facility]. Dr. Parker is her Oncology Surgeon. She also has a PCP, Dr. Hsu. The patient reports a weight loss of 40 pounds since August 2018. The patient also sees Dr. Womack, Cardiology, last seen in December 2017. At that time, she was diagnosed with GERD. The patient also had an echo done at that time, which showed an EF of 55% to 60%, mild mitral valve prolapse, and a possible mass or vegetation on the aortic valve. Dr. Womack's office stated she had no further workup with their office since. In the ED, the patient was given 1 L of normal saline. CBC, CMP, lactic acid, and troponins were obtained (see pertinent labs below). A CTA was also performed with PE protocol. The patient was admitted to the inpatient oncology service. Plan was for her to have further workup and evaluation including a consultation with her Oncologist. On the morning of November 22, 2018, the patient stated she felt especially weak in her lower extremities. She stated that since Tuesday, her left lower extremity had felt weaker than her right lower extremity. She states that she still felt short of breath whenever she had any exertion. The patient saw Dr. Fernandez that morning. Per Dr. Fernandez's notes, she attributes the weakness to moderate malnutrition. The patient was placed on PPN at that time. The patient began working with physical therapy that day. The physical therapy notes detailed that whenever the patient had exertion, her O2 saturations were dropping to the upper 70s and low 80s. The O2 saturations would return to the upper 90s when the patient had a few minutes of rest. On November 23, 2018, the patient was noted to have continued mouth sores, and Magic mouthwash was added at that time. It was then determined to switch the patient from PPN to TPN. The TPN was able to be given through the patient's existing chemo port. Case management began to work with the patient to arrange for home health services including physical therapy and occupational therapy services done at home. On the morning of November 24, 2018, it was arranged that the patient would go home with services by [facility], and home TPN with [facility]. Oncology also cleared the patient to be medically stable for discharge home. The patient was trained by a [facility] on how to use her home TPN. She was also told to make an appointment with her radiation oncologist in [place] to resume radiation treatments as soon as possible after discharge. In the evening of November 24, 2018, the patient was discharged home. PERTINENT LABORATORY DATA: 1. Labs on November 21, 2018, admission labs: a. CBC; WBC 5.4, hemoglobin 8.8, hematocrit 27.3, platelets 220. b. CMP; sodium 135, potassium 4.1, chloride 108, carbon dioxide 21, BUN 7, creatinine 0.51, glucose 103, calcium 7.4, total bilirubin 0.8, AST 33, ALT 18, alkaline phosphatase 184. c. Lactic acid 1.3. d. Troponins less than 0.01 x 2. e. Procalcitonin 0.14. f. BNP 42.9. g. UA; negative. 2. Labs on November 24, 2018, discharge labs: a. CBC; WBC 3.6, hemoglobin 8.2, hematocrit 25.2, platelets 149. b. CMP; sodium 133, potassium 5.0, chloride 104, carbon dioxide 27, BUN 9, creatinine 0.47, glucose 116, calcium 7.7, alkaline phosphatase 162. 3. Labs on November 22, 2018: a. Pre-albumin 6.0. b. CA-19-9 antigen 811. DISPOSITION: Stable. DISCHARGE INSTRUCTIONS: 1. Location: Home on home health services. 2. Diet. TPN with soft solids for comfort feeds. 3. Activity: As tolerated. 4. Given instruction and supplies for home TPN. 5. Physical therapy and occupational therapy will be set up through [facility]. 6. Follow up with Dr. Fernandez on December 08 at 10 a.m. 7. Follow up with Dr. Womack for echo results in 3 to 4 weeks. 8. Follow up with Radiation Oncologist in [place] as soon as possible to resume radiation treatment. Job ID: [id number]
== END 2018-11-24 18:16 | disposition home health service (06) | DRG 189 ==
LOC: ERS 11:14 → ERHOLD 13:24 → INTOOBSV 13:24 → OBSVTOIN 13:24 → ONC 19:37
PROVIDERS: ADMIT Student in an Organized Health Care Education/Training Program; ATTEND Student in an Organized Health Care Education/Training Program
PROC: 3E03317 Introduction of Other Thrombolytic into Peripheral Vein, Percutaneous Approach (ICD-10-PCS; principal; 2018-11-24)
PROC: F07Z9ZZ Gait Training/Functional Ambulation Treatment (ICD-10-PCS; 2018-11-24)
DX: J96.01 Acute respiratory failure with hypoxia (principal); C25.9 Malignant neoplasm of pancreas, unspecified; R64 Cachexia; E44.0 Moderate protein-calorie malnutrition; Z68.1 Body mass index [BMI] 19.9 or less, adult; I10 Essential (primary) hypertension; R29.6 Repeated falls; F32.9 Major depressive disorder, single episode, unspecified; F41.9 Anxiety disorder, unspecified; K21.9 Gastro-esophageal reflux disease without esophagitis; H40.9 Unspecified glaucoma; M81.0 Age-related osteoporosis without current pathological fracture; D64.9 Anemia, unspecified; K12.30 Oral mucositis (ulcerative), unspecified; T45.1X5A Adverse effect of antineoplastic and immunosuppressive drugs, initial encounter; W10.9XXA Fall (on) (from) unspecified stairs and steps, initial encounter; G62.9 Polyneuropathy, unspecified; Z90.49 Acquired absence of other specified parts of digestive tract; Y93.89 Activity, other specified; Z90.710 Acquired absence of both cervix and uterus; Z88.1 Allergy status to other antibiotic agents; Z88.8 Allergy status to other drugs, medicaments and biological substances
CPT/HCPCS: 36415; 71046; 71275; 80053; 81003; 81015; 83605; 83880; 84134; 84145; 84484; 85025; 85520; 86301; 93005; 93306; 96360; J1650; J2550; Q0162; Q0167; Q0169